=== PATIENT | male | born 1970 | race Caucasian/White ===

== ENCOUNTER 2016-12-07 20:29 | Observation (INO) ==
[2016-12-07 22:02] LABS: Basophils % 0.3 %; Eosinophils # 0.1 K/mcL (0.0-0.6); Eosinophils % 0.9 %; Hematocrit 38.5 % (37.5-50.1); Hemoglobin 11.8 g/dL (12.9-16.9); Immature Granulocytes % 0.7 % (0-4); Lymphocytes # 1.4 K/mcL (0.6-4.6); Lymphocytes % 19.5 %; Mean Corpuscular HGB Conc 30.6 g/dL (31.6-35.5); Mean Corpuscular Hemoglobin 23.8 pg (28.0-33.3); Mean Corpuscular Volume 77.6 fL (83.0-100.0); Mean Platelet Volume 9.7 fL (9.4-12.4); Monocytes # 0.6 K/mcL (0.0-1.3); Monocytes % 7.9 %; Neutrophils # 4.9 K/mcL (1.6-8.9); Platelet Count 248 K/mcL (140-400); Red Blood Count 4.96 M/mcL (4.19-5.50); Red Cell Distribution Width 16.5 % (11.5-14.5); Segmented Neutrophils % 70.7 %
[2016-12-07 22:07] LABS: Prothrombin Time 11.1 Seconds (9.4-12.1)
[2016-12-07 22:10] LABS: Activated Partial Thrombo Time 26.1 Seconds (26.0-36.0)
[2016-12-07 22:14] LABS: BUN/Creatinine Ratio 15 (6-26); Blood Urea Nitrogen 12 mg/dL (8-26); Calcium 8.7 mg/dL (8.6-10.8); Carbon Dioxide 23 mEq/L (19-29); Chloride 108 mEq/L (98-109); Glucose 101 mg/dL (70-99); Osmolality,Calculated 292 (280-300); Potassium 4.6 mEq/L (3.5-4.5); Sodium 141 mEq/L (136-145); eGFR For African Americans > 60 (> 60); eGFR For Non-African Americans > 60 (> 60)
[2016-12-07 22:38] LABS: Thyroid Stimulating Hormone 1.255 mcIU/mL (0.350-4.840)
--- NOTE | 2016-12-07 23:31 | Emergency Department Note ---
Disposition Clinical Impression: Chest pain, rule out acute myocardial infarction Disposition: Admitted As Inpatient Condition: Fair Chest Pain HPI - General Chief Complaint: ED Chest Pain Stated Complaint: Chest Pain// sent from [facility] Time Seen by Provider: 12/07/16 21:03 Source: patient Mode of arrival: ambulatory Limitations: no limitations Vital Signs Reviewed: Yes Nursing Notes Reviewed: Yes - History of Present Illness HPI Narrative: 46 year old male presents with concerns of increasing chest pain over the past 1 -2 weeks. Patient states that his pain is a deep aching in the center of his chest without radiation. He states that his pain worsens with exertion and he becomes short of breath, diaphoretic and nauseated. Patient had similar symptoms last year with a cardiac catheter that showed mild disease. He did not have any stents placed at that time. Patient states that the symptoms are worse than they were at that time. Patient denies recent trauma, fever, diarrhea. Patient also has chest pain that is sharp and stabbing in addition to his aching pain. The sharp and stabbing pain is worse with palpation however this only lasts seconds and is not associated with exertion. Severity scale (1-10): 4 - Related Data Home Medications Medication Instructions Recorded Confirmed Atenolol [Tenormin] 25 mg PO DAILY 06/23/16 12/08/16 Acetaminophen with Codeine 1 tab PO Q6H PRN 12/08/16 12/08/16 [Acetaminophen-Cod #4 Tablet] Furosemide [Lasix] 40 mg PO DAILY 12/08/16 12/08/16 HYDROcodone/Acet 5/325 mg [[place] 1 tab PO Q6H PRN 12/08/16 12/08/16 5-325 mg] Lisinopril [Zestril] 40 mg PO DAILY 12/08/16 12/08/16 Previous Rx's Medication Instructions Recorded Aspirin 81 mg PO DAILY #30 tab.chew 12/08/16 Allergies Allergy/AdvReac Type Severity Reaction Status Date / Time No Known Allergies Allergy Verified 06/23/16 09:48 All systems ED: reviewed and negative except as stated. Constitutional: Reports: weakness. Denies: fever, chills Cardiovascular: Reports: chest pain, dyspnea on exertion. Denies: palpitations , syncope Respiratory: Reports: dyspnea. Denies: cough, wheezes, hemoptysis Gastrointestinal: Reports: nausea, vomiting. Denies: abdominal pain, diarrhea, constipation Genitourinary: Denies: urgency, dysuria Musculoskeletal: Denies: back pain, neck pain Chest Pain PMH - Past Medical History Medical history: Reports: diabetes, hypertension, myocardial infarction, other Reports: Other (neuropathy) Surgical history: Reports: cholecystectomy, herniorrhaphy, other Psychiatric history: Reports: depression - Social History Smoking Status: Never smoker Alcohol use: Reports: heavy Drug use: Reports: none Physical Exam General: Alert and in no acute distress Skin: Warm, dry, intact Head: Normocephalic and atraumatic Neck: Supple, trachea midline and no tenderness Cardiovascular: RRR, no murmur, normal perfusion Respiratory: CTAB, no wheezing, cough, or respiratory distress Musculoskeletal: Normal strength, no tenderness, swelling or deformity GI: Soft, nontender, nondistended. Bowel sounds present Neuro: A&O to person, place, time and situation. No focal deficits noted on exam Psychiatric: cooperative and appropriate mood and affect. - General Limitations: no limitations General appearance: alert Course Vital Signs Temperature 99 F 12/07/16 20:34 Pulse Rate 97 12/07/16 20:34 Respiratory Rate 18 12/07/16 20:34 Blood Pressure 184/94 12/07/16 20:34 O2 Sat by Pulse Oximetry 98 12/07/16 20:34 Temperature 98.5 F 12/08/16 11:11 Pulse Rate 89 12/08/16 11:11 Respiratory Rate 16 12/08/16 11:11 Blood Pressure 142/87 12/08/16 11:11 O2 Sat by Pulse Oximetry 98 12/08/16 11:11 Oxygen Delivery Oxygen Delivery Room Air Chest Pain - Medical Records Medical records reviewed: Yes I reviewed the patient's medical records. - Lab Data Lab results reviewed: Yes I reviewed the patient's lab results. Result diagrams: 12/07/16 21:55 12/08/16 03:58 Lab Results 12/07/16 12/07/16 12/07/16 Range/Units 21:55 21:55 21:55 WBC 7.0 (4.3-11.1) K/mcL RBC 4.96 (4.19-5.50) M/mcL Hgb 11.8 L (12.9-16.9) g/dL Hct 38.5 (37.5-50.1) % MCV 77.6 L (83.0-100.0) fL MCH 23.8 L (28.0-33.3) pg MCHC 30.6 L (31.6-35.5) g/dL RDW 16.5 H (11.5-14.5) % Plt Count 248 (140-400) K/mcL MPV 9.7 (9.4-12.4) fL Immature Gran % 0.7 (0-4) % Seg Neutrophils % 70.7 % Lymphocytes % 19.5 % Monocytes % 7.9 % Eosinophils % 0.9 % Basophils % 0.3 % Neutrophils # 4.9 (1.6-8.9) K/mcL Lymphocytes # 1.4 (0.6-4.6) K/mcL Monocytes # 0.6 (0.0-1.3) K/mcL Eosinophils # 0.1 (0.0-0.6) K/mcL Basophils # 0.0 (0.0-0.2) K/mcL PT 11.1 (9.4-12.1) Seconds INR 1.0 APTT 26.1 (26.0-36.0) Seconds Sodium 141 (136-145) mEq/L Potassium 4.6 H (3.5-4.5) mEq/L Chloride 108 (98-109) mEq/L Carbon Dioxide 23 (19-29) mEq/L BUN 12 (8-26) mg/dL Creatinine 0.82 (0.72-1.25) mg/dL Est GFR ( Amer) > 60 (> 60) Est GFR (Non-Af Amer) > 60 (> 60) BUN/Creatinine Ratio 15 (6-26) Glucose 101 H (70-99) mg/dL Calculated Osmolality 292 (280-300) Calcium 8.7 (8.6-10.8) mg/dL Troponin I (0-0.03) ng/mL TSH 1.255 (0.350-4.840) mcIU/mL 12/07/16 Range/Units 21:55 WBC (4.3-11.1) K/mcL RBC (4.19-5.50) M/mcL Hgb (12.9-16.9) g/dL Hct (37.5-50.1) % MCV (83.0-100.0) fL MCH (28.0-33.3) pg MCHC (31.6-35.5) g/dL RDW (11.5-14.5) % Plt Count (140-400) K/mcL MPV (9.4-12.4) fL Immature Gran % (0-4) % Seg Neutrophils % % Lymphocytes % % Monocytes % % Eosinophils % % Basophils % % Neutrophils # (1.6-8.9) K/mcL Lymphocytes # (0.6-4.6) K/mcL Monocytes # (0.0-1.3) K/mcL Eosinophils # (0.0-0.6) K/mcL Basophils # (0.0-0.2) K/mcL PT (9.4-12.1) Seconds INR APTT (26.0-36.0) Seconds Sodium (136-145) mEq/L Potassium (3.5-4.5) mEq/L Chloride (98-109) mEq/L Carbon Dioxide (19-29) mEq/L BUN (8-26) mg/dL Creatinine (0.72-1.25) mg/dL Est GFR ( Amer) (> 60) Est GFR (Non-Af Amer) (> 60) BUN/Creatinine Ratio (6-26) Glucose (70-99) mg/dL Calculated Osmolality (280-300) Calcium (8.6-10.8) mg/dL Troponin I 0.00 (0-0.03) ng/mL TSH (0.350-4.840) mcIU/mL - Radiology Data Radiology results reviewed: Yes I reviewed the patient's radiology results. - EKG Data EKG attestation: Yes I reviewed and interpreted this EKG. EKG results narrative: ECG - interpreted by ED physician. Rate 93, normal sinus rhythm, no STEMI, DC, QT intervals, and QRS within normal limits Heart Score - Score History: Moderately Suspicious EKG: Normal Age: 45-65 Risk Factors: Equal/Greater than 3 risk factor or history of atherosclerotic disease Troponin: Less than normal limit HEART Score Total: 4
[2016-12-08] MEDS ORDERED: 0.9 % Sodium Chloride 500 ML IVC ONE (02:29)
--- NOTE | 2016-12-08 02:36 | Internal Med History&Physical ---
Date of Encounter: 12/08/16 Time of Encounter: 02:34 Assessment and Plan (1) Chest pain Current visit: No Status: Acute Patient presents with atypical chest pain. His electrocardiogram shows noST- segment shifts. Initial troponin normal. Will check 2 more sets of cardiac enzymes. I would also chick d dimer, and if elevated will ruled out pulmonary embolism. Will continue aspirin and beta lemuel. We will give heparin and famotidine for DVT and peptic ulcer disease prophylaxis respectively. Patient drinks 2 glasses of beer every day but denies going into withdrawal when he stops drinking for a few days. This potassium is slightly elevated will hold lisinopril and treat hyperkalemia and repeat potassium. He would be admitted under observation status. Qualifiers: Qualified Code(s): R07.9 - Chest pain, unspecified Internal Medicine - H&P: HPI Chief complaint: chest pain History of present illness: Mr. Cortes is a 46 year old male with a history of hypertension, dyslipidemia , noninclusive coronary artery disease presents to the emergency room today with the main complaining of chest pain. For the past day patient has been having intermittent episodes of chest pain lasting from 15 minutes to 2 hours. Pain was associated with shortness of breath but was not related to exertion. He had an angiogram last year which showed no occlusive disease according to the patient. Patient denies any prior history of DVT or pulmonary embolism Past Med Surg Social Fam HX - Past Medical History Medical history: diabetes, hypertension, myocardial infarction, other Psychiatric history: depression - Past Surgical History Surgical History: cholecystectomy, herniorrhaphy, other - Social History Smoking Status: Former smoker Smokeless Tobacco Status: No Alcohol use: heavy Drug use: none - Family History Mother Living Status: Still Living Hx Family Cardiac Disorders: Yes (Coronary artery disease) Hx Family Respiratory Disorders: Yes (COPD, Sleep apnea) Hx Family Endocrine Disorder: Yes (Diabetes mellitus) Internal Medicine - H&P: Meds Atenolol [Tenormin] 25 mg PO DAILY 06/23/16 [History] Furosemide [Lasix] 20 mg PO BID 12/08/16 [History] HYDROcodone/Acet 5/325 mg [[place] 5-325 mg] 1 tab PO Q6H PRN 12/08/16 [History] Lisinopril [Zestril] 20 mg PO HS 12/08/16 [History] Allergies No Known Allergies Allergy (Verified 06/23/16 09:48) All Systems PM: A 10-system review of systems was performed and is negative for pertinent findings except as documented above in the HPI. Review of systems: 10 point review systems is negative except for HPI. - Constitutional Vitals: Temp Pulse Resp BP Pulse Ox 98.4 F 88 16 141/89 98 12/08/16 00:56 12/08/16 00:56 12/08/16 00:56 12/08/16 00:56 12/08/16 01:21 Exam: Gen.: patient is alert oriented times 3 and often distressed Cardiac: normal S1 S2 no additional sounds or murmurs chest: clear to auscultation abdomen: multiple scars of prior surgeries no tenderness or rebound tenderness lower extremity 1+ swelling Internal Med - H&P Results - Labs CBC & Chem 7: 12/07/16 21:55 12/07/16 21:55
[2016-12-08] MEDS: *HR* HYDROcodone/Acet 5/325 mg TABLET PO PRN ×2 (03:06→09:16)
[2016-12-08 05:00] LABS: BUN/Creatinine Ratio 18 (6-26); Blood Urea Nitrogen 14 mg/dL (8-26); Calcium 8.6 mg/dL (8.6-10.8); Carbon Dioxide 24 mEq/L (19-29); Chloride 107 mEq/L (98-109); Creatine Kinase 106 Units/L (30-200); Glucose 98 mg/dL (70-99); Osmolality,Calculated 292 (280-300); Sodium 141 mEq/L (136-145); eGFR For African Americans > 60 (> 60); eGFR For Non-African Americans > 60 (> 60)
[2016-12-08] MEDS ORDERED: *HR* Enoxaparin 40 MG/0.4 ML SYRINGE SQ SCH (07:00)
[2016-12-08] MEDS ORDERED: Aspirin Enteric Coated 325 MG Tablet PO SCH (09:00)
[2016-12-08] MEDS ORDERED: Famotidine 20 MG TABLET PO SCH (09:00)
[2016-12-08] MEDS ORDERED: Furosemide 20 MG TABLET PO SCH (09:00)
[2016-12-08 11:16] VITALS: BP 142/87
--- NOTE | 2016-12-08 14:09 | Discharge Summary ---
Date of Encounter: 12/08/16 Time of Encounter: 13:30 - Discharge Diagnosis (1) Chest pain Priority: Primary Status: Resolved Comments: Patient denied chest pain at time of discharge. Troponin 0.003. Chest x-ray negative. D-dimer elevated, CTA negative for PE. At time of discharge, patient stating his pedal edema was actually improved from his baseline. ACS ruled out. Follow-up outpatient. (2) Anemia Priority: Secondary Status: Chronic Comments: Mild, stable, chronic, follow-up outpatient (3) DVT prophylaxis Priority: Primary Status: Acute Comments: Subcutaneous Lovenox while admitted (4) HTN (hypertension) Priority: Secondary Status: Chronic Comments: Controlled, recommend continued follow-up outpatient Qualifiers: Hypertension type: essential hypertension Qualified Code(s): I10 - Essential (primary) hypertension (5) Morbid obesity with BMI of 50.0-59.9, adult Priority: Secondary Status: Chronic (6) LEXI on CPAP Priority: Secondary Status: Chronic Comments: Endorses compliance (7) Diastolic heart failure Priority: Secondary Status: Chronic Comments: No acute exacerbation. Patient's pedal edema improved from his baseline at time of discharge. Most recent echocardiogram July 2015 revealing ejection fraction of 50-55% and mild diastolic dysfunction. He is furosemide at home, follow-up outpatient. patient is aware of his sodium and fluid was strict a diet. Qualifiers: Heart failure chronicity: chronic Qualified Code(s): I50.32 - Chronic diastolic (congestive) heart failure - Discharge Medications Prescriptions: Aspirin 81 mg PO DAILY #30 tab.chew Home Medications: Atenolol [Tenormin] 25 mg PO DAILY 06/23/16 [History] Acetaminophen with Codeine [Acetaminophen-Cod #4 Tablet] 1 tab PO Q6H PRN [History] Aspirin 81 mg PO DAILY #30 tab.chew 12/08/16 [Rx] Furosemide [Lasix] 40 mg PO DAILY 12/08/16 [History] HYDROcodone/Acet 5/325 mg [[place] 5-325 mg] 1 tab PO Q6H PRN 12/08/16 [History] Lisinopril [Zestril] 40 mg PO DAILY 12/08/16 [History] Allergies/Adverse Reactions: Allergies No Known Allergies Allergy (Verified 06/23/16 09:48) Procedures/tests Complete & Pending: Procedures Performed prior 72 hours Category Date Time Status CTA chest [CT angio chest] [CT] Stat Cat Scan 12/08/16 07:03 Draft Date of admission: 12/08/16 00:13 Primary care physician: Randall Jacob MD Discharging clinician: Fabiana Sunshine Anticipated date of discharge: 12/08/16 - Patient Status Disposition: Home, Self-Care Condition: Fair Functional capacity at discharge: independent ambulation Overall status at discharge: patient is back to baseline - Discharge Instructions Follow Up With: Randall Jacob MD [Primary Care Provider] - Additional Instructions: Follow-up with primary care provider in one to 2 weeks - Diet and Activity Activity: increase activity as tolerated Diet: diabetic diet, low fat, low cholesterol, low salt diet, other (Fluid restriction 1800 mL per day) Hospital course: Mr. Cortes is a 46 year old male with past medical history of hypertension, hyperlipidemia, CAD, diastolic heart failure, morbid obesity. Patient presented to the emergency department chief complaint chest pain 1 day. Patient stating pain was intermittent and lasted approximately 15 minutes to up to 2 hours and was associated with shortness of breath but not related to exertion. Patient stating he had a heart catheter at the end of 2014 that revealed nonobstructive coronary artery disease. Workup in the emergency department unremarkable. Chest x-ray negative. Patient was admitted to the hospitalist service for further evaluation and management. Troponins negative 3. D-dimer elevated, CTA ruled out PE. Patient did not require oxygen on day of discharge. He was asymptomatic and denied chest pain on day of discharge. His pedal edema had improved from his baseline and he denied shortness of breath above his norm. For further risk factor stratification, he was started on a baby aspirin. He was discharged home in stable condition with close outpatient follow-up recommended. ITS Impressions Chest X-Ray 12/07/16 23:05 IMPRESSION: 1. No focal airspace disease identified D/ / Riki Hargrove MD / Riki Hargrove MD Interpreting Provider: Riki Hargrove MD Chest CTA 12/08/16 07:03 IMPRESSION: Suboptimal evaluation of the distal pulmonary arteries. No evidence of central pulmonary embolism or right heart strain. Stable appearance of miliary noncalcified nodules throughout the lungs, most likely related to prior granulomatous disease. D/ / 12/08/2016 10:33:29 Arley Castellon MD / joe Interpreting Provider: Arley Castellon MD - Time Spent with Patient Total time spent providing and/or coordinating discharge services: - Constitutional Vitals: Temp Pulse Resp BP Pulse Ox 98.5 F 89 16 142/87 98 12/08/16 11:11 12/08/16 11:11 12/08/16 11:11 12/08/16 11:11 12/08/16 11:11 General appearance: Present: A&O X 3, morbidly obese, pleasant, no acute distress, answers questions appropriately - Head Head exam: Present: atraumatic, normocephalic - Eye Eye exam: Present: PERRL, conjuntiva pink, sclera anicteric Pupils: Present: PERRL - Neck Neck exam general surgery: Present: supple, trachea midline. Absent: lymphadenopathy - Respiratory Respiratory exam: Present: decreased breath sounds (good aeration). Absent: accessory muscle use, rales, respiratory distress, rhonchi, wheezes - Cardiovascular Cardiovascular exam: Present: RRR, +S1, +S2. Absent: diastolic murmur, gallop, rubs, systolic murmur - GI/Abdominal GI/Abdominal exam: Present: normal bowel sounds, soft, no peritoneal signs. Absent: distended, tenderness - Extremities Exam Extremities exam: Present: pedal edema (2+- normal is 4+ per patient), warm, radial pulses palpable and symetrical. Absent: calf tenderness, cyanotic - Neurological Exam Neurological exam: Present: alert, CN II-XII intact, oriented X3, no focal deficits, strengths equal and symetr throughout. Absent: pronater drift, facial droop, speech deficit - Skin Skin exam: Present: dry, intact, normal color, warm
--- NOTE | 2016-12-08 14:55 | Electrocardiograph Report ---
[place] [id number] Test Date: 2016-12-07 Pat Name: Lobo Cortes Department: 102 Room: 3B37 Gender: M [employer]acker: : 1970 Requested By: Ryan Connell Order Number: [id number] Reading MD: Yovana Mckeon Measurements Intervals [place] Rate: 93 P: 48 ID: [id number] QRS: 6 QRSD: 89 T: 12 QT: 336 QTc: 387 Interpretive Statements SINUS RHYTHM Electronically Signed On 12-08-2016 14:53:48 EST by Yovana Mckeon
[2016-12-11 12:44] LABS: CK-BB (CK isoenzymes) 0 % (0-0); CK-MB (CK isoenzymes) 0 % (0-4); CK-MM (CK-isoenzymes) 95 % (96-100)
[2016-12-13 07:49] LABS: CK Total (Ck Isoenzymes) 102 U/L (20-200)
== END 2016-12-08 16:01 | disposition home or self-care (01) ==
LOC: 3BNU 20:29 → EMEROO 20:29 → 3BNU 12-08 00:44
PROVIDERS: ADMIT Hospitalist; ATTEND Nurse Practitioner Family

== ENCOUNTER 2017-07-07 02:41 | Observation (INO) ==
[2017-07-07] MEDS ORDERED: Aspirin 81 MG TAB.CHEW PO ONE (02:47)
[2017-07-07] MEDS ORDERED: Nitroglycerin 0.4 MG TAB.SUBL SL PRN (02:54)
--- NOTE | 2017-07-07 02:58 | Emergency Department Note ---
Disposition Clinical Impression: Chest pain Disposition: Admitted As Inpatient Condition: Fair Referrals: NONE,PCP [Primary Care Provider] - Forms: ED Satisfaction Letter Time of Disposition: 03:06 Chest Pain HPI - General Chief Complaint: ED Chest Pain Stated Complaint: Chest Pain Time Seen by Provider: 07/07/17 02:46 Source: patient, EMS Mode of arrival: ambulatory Limitations: no limitations Vital Signs Reviewed: Yes Nursing Notes Reviewed: Yes - History of Present Illness HPI Narrative: Patient is an obese 47-year-old male with a past medical history of hypertension , diabetes, ND and CHF that presents to the ED with chest pain radiating up to his jaw with associated nausea, shortness of breath and diaphoresis. Patient reports that pain started approximately 1 hour prior to arrival while he was walking down the hallway doing rounds. 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 Rates pain a 9 out of 10. Describes pain as a heaviness to his mid/left side of chest. He denies any cough, weakness, fever, chills, vomiting, abdominal pain , back pain or any other symptoms/complaints. Pt complaint: chest pain Onset (ago): [employer] Duration: constant Onset: during exertion Pain Location: left chest Severity: moderate Severity scale (1-10): 9 Quality: heaviness Pain Radiation: jaw/teeth Improves with: nothing Worsens with: nothing Associated symptoms: Reports: nausea, vomiting, diaphoresis, dyspnea. Denies: sense of impending doom, syncope, palpitations, fever, cough, leg swelling Treatments prior to arrival chest pain: aspirin, oxygen - Related Data Home Medications Medication Instructions Recorded Confirmed Atenolol [Tenormin] 25 mg PO DAILY 06/23/16 05/28/17 Furosemide [Lasix] 40 mg PO DAILY 12/08/16 05/28/17 HYDROcodone/Acet 5/325 mg [[place] 1 tab PO Q6H PRN 12/08/16 05/28/17 5-325 mg] Lisinopril [Zestril] 40 mg PO DAILY 12/08/16 05/28/17 Diclofenac Sodium [Voltaren] 4 gm TP QID PRN 05/28/17 05/28/17 Diclofenac Sodium [Voltaren] 75 mg PO BID 05/28/17 05/28/17 Allergies Allergy/AdvReac Type Severity Reaction Status Date / Time No Known Allergies Allergy Verified 05/28/17 08:38 All systems ED: reviewed and negative except as stated. Review of Systems: As Per HPI Constitutional: Denies: fever, chills, weakness Eyes: Denies: eye discharge, vision change ENT ED: Denies: throat pain, congestion Cardiovascular: Reports: chest pain. Denies: palpitations, dyspnea on exertion , edema, syncope, paroxysmal nocturnal dyspnea Respiratory: Reports: dyspnea. Denies: cough, wheezes, hemoptysis, stridor Gastrointestinal: Reports: nausea, vomiting. Denies: abdominal pain, diarrhea, constipation, hematemesis, melena, hematochezia Genitourinary: Denies: dysuria Musculoskeletal: Denies: back pain, neck pain Integumentary: Denies: rash Neurological: Denies: headache, weakness, numbness, paresthesias, confusion Endocrine: Denies: fatigue Chest Pain PMH - Past Medical History Medical history: Reports: diabetes, hypertension, myocardial infarction, other Reports: Other (neuropathy) Surgical history: Reports: cholecystectomy, herniorrhaphy, other Psychiatric history: Reports: depression - Social History Smoking Status: Former smoker Alcohol use: Reports: occasionally Drug use: Reports: none Physical Exam - General Limitations: no limitations General appearance: alert, in no apparent distress - Head Head exam: atraumatic, normocephalic, normal inspection - Eye Eye exam: Present: normal appearance, PERRL, EOMI - ENT ENT exam: normal exam, normal oropharynx, mucous membranes moist - Neck Neck exam: Present: normal inspection, full ROM, trachea midline. Absent: tenderness, meningismus - Chest Chest inspection: Present: normal inspection, symmetric chest wall rise - Respiratory Respiratory exam: Present: normal lung sounds bilaterally. Absent: respiratory distress, wheezes, accessory muscle use - Cardiovascular Cardiovascular exam: Present: regular rate, normal rhythm, normal heart sounds - Abdominal Exam Abdominal exam: Present: soft, Non-Tender, normal bowel sounds, other (obese). Absent: tenderness, distention, guarding, rebound, rigidity - Extremities Exam Extremities exam: Present: normal inspection, full ROM, pedal edema (bilateral) . Absent: tenderness - Expanded Lower Extremity Exam Gait: observed and normal - Back Exam Back exam: Present: normal inspection, full ROM. Absent: tenderness - Neurological Exam Neurological exam: Present: alert, oriented X3, CN II-XII intact - Psychiatric Psychiatric exam: Present: normal affect, normal mood - Skin Skin exam: Present: warm, dry, intact, normal color. Absent: rash, cyanosis, diaphoresis Course Course Narrative: Patient is an obese 47-year-old male with a past medical history of hypertension , diabetes, ND and CHF that presents to the ED with chest pain radiating up to his jaw with associated nausea, shortness of breath and diaphoresis. Patient reports that pain started approximately 1 hour prior to arrival while he was walking down the hallway doing rounds. 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 Rates pain a 9 out of 10. Describes pain as a heaviness to his mid/left side of chest. He denies any cough, weakness, fever, chills, vomiting, abdominal pain , back pain or any other symptoms/complaints. Patient is a obese 47-year-old male. Vital stable. Afebrile. Alert and oriented 3. Appears in no acute distress. Heart RRR. Lungs CTAB. No wheezing, stridor, retractions or any signs of respiratory distress/compromise. Abdomen soft, nontender. Extremities: wnl. bilateral pedal edema. Otherwise , within normal limits. Neuro no focal neurological deficits noted on exam. EKG, chest x-ray and labs ordered. ASA given in route by EMS. Nitroglycerin trial will be performed. We will reevaluate. EKG sinus rhythm. K4.6, creatinine 1.46 Troponin negative. Chest x-ray shows no acute cardiopulmonary abnormalities. Heart Score 4. Chest pain improved after 1 nitroglycerin tablet, now a 5 out of 10. BP dropped with one nitroglycerin tablet we will hold off their nitroglycerin at this time. Discussed labs and imaging with patient. Plan to admit to medicine for serial trop and chest pain rule out. Pt agrees with tx plan. Discussed case with Dr. Connell. He had [id number] time with patient and agrees with my assessment and treatment plan. Discussed case with the hospitalist. He accepted pt. No other request at this time. Hospitalist saw patient in the ED at 3:40 AM. Vital Signs Temperature 0 F L 07/07/17 02:43 Pulse Rate 82 07/07/17 02:43 Respiratory Rate 20 07/07/17 02:43 Blood Pressure 114/65 07/07/17 02:43 O2 Sat by Pulse Oximetry 99 07/07/17 02:43 Temperature 0 F L 07/07/17 02:43 Pulse Rate 82 07/07/17 02:43 Respiratory Rate 20 07/07/17 02:43 Blood Pressure 114/65 07/07/17 02:43 O2 Sat by Pulse Oximetry 99 07/07/17 02:54 Oxygen Delivery Oxygen Delivery Room Air Chest Pain - Medical Records Medical records reviewed: Yes I reviewed the patient's medical records. - Lab Data Lab results reviewed: Yes I reviewed the patient's lab results. Result diagrams: 07/07/17 02:57 07/07/17 02:57 Lab Results 07/07/17 07/07/17 07/07/17 Range/Units 02:57 02:57 02:57 WBC 9.3 (4.3-11.1) K/mcL RBC 4.99 (4.19-5.50) M/mcL Hgb 13.1 (12.9-16.9) g/dL Hct 42.6 (37.5-50.1) % MCV 85.4 (83.0-100.0) fL MCH 26.3 L (28.0-33.3) pg MCHC 30.8 L (31.6-35.5) g/dL RDW 15.2 H (11.5-14.5) % Plt Count 242 (140-400) K/mcL MPV 10.0 (9.4-12.4) fL Immature Gran % 1.2 (0-4) % Seg Neutrophils % 75.7 % Lymphocytes % 13.2 % Monocytes % 9.1 % Eosinophils % 0.5 % Basophils % 0.3 % Neutrophils # 7.0 (1.6-8.9) K/mcL Lymphocytes # 1.2 (0.6-4.6) K/mcL Monocytes # 0.9 (0.0-1.3) K/mcL Eosinophils # 0.1 (0.0-0.6) K/mcL Basophils # 0.0 (0.0-0.2) K/mcL PT 10.6 (9.4-12.1) Seconds INR 1.0 APTT 25.6 L (26.0-36.0) Seconds Sodium 138 (136-145) mEq/L Potassium 4.6 H (3.5-4.5) mEq/L Chloride 106 (98-109) mEq/L Carbon Dioxide 23 (19-29) mEq/L BUN 35 H (8-26) mg/dL Creatinine 1.46 H (0.72-1.25) mg/dL Est GFR ( Amer) > 60 (> 60) Est GFR (Non-Af Amer) 52 L (> 60) BUN/Creatinine Ratio 24 (6-26) Glucose 91 (70-99) mg/dL Calculated Osmolality 294 (280-300) Calcium 8.8 (8.6-10.8) mg/dL Troponin I (0-0.03) ng/mL 07/07/17 Range/Units 02:57 WBC (4.3-11.1) K/mcL RBC (4.19-5.50) M/mcL Hgb (12.9-16.9) g/dL Hct (37.5-50.1) % MCV (83.0-100.0) fL MCH (28.0-33.3) pg MCHC (31.6-35.5) g/dL RDW (11.5-14.5) % Plt Count (140-400) K/mcL MPV (9.4-12.4) fL Immature Gran % (0-4) % Seg Neutrophils % % Lymphocytes % % Monocytes % % Eosinophils % % Basophils % % Neutrophils # (1.6-8.9) K/mcL Lymphocytes # (0.6-4.6) K/mcL Monocytes # (0.0-1.3) K/mcL Eosinophils # (0.0-0.6) K/mcL Basophils # (0.0-0.2) K/mcL PT (9.4-12.1) Seconds INR APTT (26.0-36.0) Seconds Sodium (136-145) mEq/L Potassium (3.5-4.5) mEq/L Chloride (98-109) mEq/L Carbon Dioxide (19-29) mEq/L BUN (8-26) mg/dL Creatinine (0.72-1.25) mg/dL Est GFR ( Amer) (> 60) Est GFR (Non-Af Amer) (> 60) BUN/Creatinine Ratio (6-26) Glucose (70-99) mg/dL Calculated Osmolality (280-300) Calcium (8.6-10.8) mg/dL Troponin I 0.01 (0-0.03) ng/mL - Radiology Data Radiology results reviewed: Yes I reviewed the patient's radiology results. - EKG Data EKG attestation: Yes I reviewed and interpreted this EKG. EKG shows normal: sinus rhythm Rate: normal Rhythm: NSR [place]/QRS: normal When compared to previous EKG there are: no significant changes Interpretation: no acute changes, normal EKG Heart Score - Score History: Moderately Suspicious EKG: Normal Age: 45-65 Risk Factors: Equal/Greater than 3 risk factor or history of atherosclerotic disease Troponin: Less than normal limit HEART Score Total: 4
[2017-07-07 03:03] LABS: Basophils % 0.3 %; Eosinophils # 0.1 K/mcL (0.0-0.6); Eosinophils % 0.5 %; Hematocrit 42.6 % (37.5-50.1); Hemoglobin 13.1 g/dL (12.9-16.9); Immature Granulocytes % 1.2 % (0-4); Lymphocytes # 1.2 K/mcL (0.6-4.6); Lymphocytes % 13.2 %; Mean Corpuscular HGB Conc 30.8 g/dL (31.6-35.5); Mean Corpuscular Hemoglobin 26.3 pg (28.0-33.3); Mean Corpuscular Volume 85.4 fL (83.0-100.0); Monocytes # 0.9 K/mcL (0.0-1.3); Monocytes % 9.1 %; Platelet Count 242 K/mcL (140-400); Red Blood Count 4.99 M/mcL (4.19-5.50); Red Cell Distribution Width 15.2 % (11.5-14.5); Segmented Neutrophils % 75.7 %
[2017-07-07 03:08] LABS: Prothrombin Time 10.6 Seconds (9.4-12.1)
[2017-07-07 03:10] LABS: Activated Partial Thrombo Time 25.6 Seconds (26.0-36.0)
[2017-07-07 03:16] LABS: BUN/Creatinine Ratio 24 (6-26); Blood Urea Nitrogen 35 mg/dL (8-26); Calcium 8.8 mg/dL (8.6-10.8); Carbon Dioxide 23 mEq/L (19-29); Chloride 106 mEq/L (98-109); Glucose 91 mg/dL (70-99); Osmolality,Calculated 294 (280-300); Potassium 4.6 mEq/L (3.5-4.5); Sodium 138 mEq/L (136-145); eGFR For African Americans > 60 (> 60); eGFR For Non-African Americans 52 (> 60)
[2017-07-07] MEDS ORDERED: 0.9 % Sodium Chloride 1,000 ML IVC ONE ×2 (03:21→09:52)
[2017-07-07] MEDS: 0.9 % Sodium Chloride 1,000 ML ONE ×2 (03:26→15:54)
[2017-07-07] MEDS ORDERED: *HR* HYDROcodone/Acet 5/325 mg TABLET PO PRN (03:45)
[2017-07-07] MEDS ORDERED: Naloxone 0.4 MG/ML INJ IVP PRN (03:46)
--- NOTE | 2017-07-07 03:51 | Internal Med History&Physical ---
Date of Encounter: 07/07/17 Time of Encounter: 03:48 Assessment and Plan (1) Chest pain Current visit: No Status: Acute trend trop, check TTE, nuclear stress test in the a.m. , he is not sure if he is able to exercise - will try pharmacological stress Qualifiers: Chest pain type: unspecified Qualified Code(s): R07.9 - Chest pain, unspecified (2) Morbid obesity with BMI of 50.0-59.9, adult Current visit: No Status: Chronic (3) HTN (hypertension) Current visit: No Status: Chronic continue med Qualifiers: Hypertension type: essential hypertension Qualified Code(s): I10 - Essential (primary) hypertension (4) Lower extremity edema Current visit: Yes Status: Chronic continue home lasix Internal Medicine - H&P: HPI Chief complaint: Chest pain History of present illness: Mr. oCrtes is a 47 year old male with hx of HTN, chronic LE edema, morbid obesity who presents with chest pain eval. 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 Associated SOB. He has longstanding hx of HTN and obesity. Has a significant family hx of cardiac disease in his mother's side - his mother just passed a few weeks ago from heart troubles. Of note, he had an abnormal stress testing with global hypokinesis that was f/u with a [facility] w/o evidence of disease. EKG reviewed with rate 77, NSR CXR reviewed by self w/o acute findings Past Med Surg Social Fam HX - Past Medical History Medical history: diabetes, hypertension, myocardial infarction, other Psychiatric history: depression - Past Surgical History Surgical History: cholecystectomy, herniorrhaphy, other - Social History Smoking Status: Former smoker Smokeless Tobacco Status: No Alcohol use: occasionally Drug use: none - Family History Mother Living Status: Still Living Hx Family Cardiac Disorders: Yes (Coronary artery disease) Hx Family Respiratory Disorders: Yes (COPD, Sleep apnea) Hx Family Endocrine Disorder: Yes (Diabetes mellitus) Internal Medicine - H&P: Meds Atenolol [Tenormin] 25 mg PO DAILY 06/23/16 [History] Furosemide [Lasix] 40 mg PO DAILY 12/08/16 [History] HYDROcodone/Acet 5/325 mg [[place] 5-325 mg] 1 tab PO Q6H PRN 12/08/16 [History] Lisinopril [Zestril] 40 mg PO DAILY 12/08/16 [History] Diclofenac Sodium [Voltaren] 4 gm TP QID PRN 05/28/17 [History] Diclofenac Sodium [Voltaren] 75 mg PO BID 05/28/17 [History] 3 Allergy/AdvReac Type Severity Reaction Status Date / Time No Known Allergies Allergy Verified 05/28/17 08:38 All Systems PM: A 10-system review of systems was performed and is negative for pertinent findings except as documented above in the HPI. Review of systems: ROS 14 point review of systems reviewed as best as possible given presentation. Pertinent positive or negative as per HPI or otherwise reviewed as negative - Constitutional Vitals: Temp Pulse Resp BP Pulse Ox 0 F L 82 20 114/65 99 07/07/17 02:43 07/07/17 02:43 07/07/17 02:43 07/07/17 02:43 07/07/17 02:54 Exam: General - AAO x 3 Psych - Appropriate affect/speech. No agitation Eyes - GAUTAM. Eye lids intact. No scleral icterus Heart - Sinus. RRR. S1 and S2 present. No added HS/murmurs appreciated. No elevated JVD appreciated. +3 lower extremity edema Lung - Adequate air entry b/l, No crackes/wheezes appreciated GI - Soft, non-tender. No hepatosplenomegaly/ascites. BS+ - No CVA/suprapubic tenderness or palpable bladder distension Skin - Intact. No rash/petechiae/ecchymosis. Warm extremities MSK - Joints with normal ROM. No joint swellings Internal Med - H&P Results - Labs CBC & Chem 7: 07/07/17 02:57 07/07/17 02:57
[2017-07-07] MEDS ORDERED: Regadenoson 0.4 MG/5 ML SYRINGE IVP ONE (05:43)
[2017-07-07] MEDS ORDERED: Lisinopril 20 MG TABLET PO SCH (09:00)
[2017-07-07] MEDS ORDERED: Furosemide 40 MG TABLET PO SCH (09:00)
--- NOTE | 2017-07-07 09:16 | Internal Med Progress Note ---
<César Benitez Dawit - Last Filed: 07/07/17 09:39> Date of Encounter: 07/07/17 Time of Encounter: 09:04 - Assessment and plan (1) Chest pain Current Visit: No Status: Acute Assessment and plan: 47-year-old male who presents with atypical chest pain ANNALISA score: 3, patient has greater than 3 risk factors for coronary artery disease, severe angina episodes, aspirin use in the last 7 days - Known history of diastolic heart failure with an ejection fraction of 50-55%, LH C performed in 2014 without any coronary vessel disease identified, no stent placement or interventions at that time. -Troponins x2 negative EKG: Normal sinus rhythm with appropriate rate access without any ST wave abnormalities and without changes from previous EKG. DDx: GERD and esophageal spasm, stress induced chest pain related to significant and recent family history, suspicion but low suspicion for ACS, coronary artery vasospasm - Higher suspicion for GERD versus esophageal spasm versus anxiety induced chest pain, lower likelihood of ACS and coronary vasospasm as the patient has normal EKG findings, resolution of sharp chest pain and negative cardiac markers Plan: - Continue inpatient cardiac monitoring - Requires one more troponin - Aspirin 81 mg by mouth daily - Hold beta lemuel and lisinopril as the patient is currently hypotensive - Atorvastatin 80 mg by mouth daily - Lipid panel - Morphine for moderate chest pain, nitroglycerin sublingual as needed, nasal cannula oxygen as needed - Patient underwent cardiac stress test this morning with results pending. Qualifiers: Chest pain type: unspecified Qualified Code(s): R07.9 - Chest pain, unspecified (2) Hypotension Current Visit: Yes Status: Acute Assessment and plan: Patient was admitted with normotensive blood pressure, blood pressure recorded at 88/50, followed by 94/62 Plan: - 1 L normal saline bolus - Hold patient's home dose lisinopril, no beta lemuel, hold sublingual nitroglycerin at this time. - Repeat blood pressure (3) ELIEL (acute kidney injury) Current Visit: Yes Status: Acute Assessment and plan: Patient presents with acute kidney injury with a creatinine of 1.46, GFR 52, previously normal renal function. This is likely secondary to dehydration and may be continuing with his hypotension. Plan: - Hold antihypertensive medications, lisinopril - Avoid NSAIDs, nephrotoxic medications and renally dose antibiotics - Patient to receive IV fluids for rehydration - Monitor renal function with a.m. labs (4) Morbid obesity with BMI of 50.0-59.9, adult Current Visit: No Status: Chronic Assessment and plan: Patient has a BMI of 53.0. He is morbidly obese with multiple risk factors including sleep apnea, hyperglycemia but not diabetic, hypertension. Patient benefit from nighttime modifications, improved diet and increase activity as tolerated to promote longevity and reduce progression of current medical conditions. (5) LEXI on CPAP Current Visit: No Status: Chronic Assessment and plan: Known history of LEXI currently uses a CPAP nightly, mallampati score 4, -Continue CPAP therapy while sleeping or at rest. (6) Diastolic heart failure Current Visit: No Status: Chronic Assessment and plan: Last echocardiogram in 2014: LVEF 50-55%. Mild left ventricular diastolic dysfunction. No significant valvular dysfunction. - Patient does not appear to be in exacerbation. Plan: - Patient presents with new onset chest pain, we will repeat transthoracic echocardiogram - Hold Lasix with hypotension and acute kidney injury. Qualifiers: Heart failure chronicity: chronic Qualified Code(s): I50.32 - Chronic diastolic (congestive) heart failure (7) DVT prophylaxis Current Visit: No Status: Acute Assessment and plan: Subcutaneous Lovenox 40 mg every morning. - Subjective Interval history: Mr. Cortes 47-year-old male is seen the patient bedside this morning. 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 The duration was a roughly 1 hour, exacerbated with activity for which he said he felt like he would double over but did not improve with rest. He says he does take aspirin and has not the past 7 days but is not consistent with taking it daily. He did have some nausea and diaphoresis but denies any vomiting. He does say that this chest pain is pretty similar to the previous chest pain he had back in 2014 when he had his left heart catheterization. He does have a history of GERD but denies being on any PPI or H2 blockers for roughly 6-7 years and denies any recent symptoms of acid reflux. Of note he does discuss that his mother roughly 5 weeks ago and had a very significant medical history of cardiac disease and her first myocardial infarction was roughly the age of 45-47, he has a cousin who was in his 40s when he several days ago from an acute VT, this is very concerning to him and does bother him. He said that his blood pressure being low today is not normal and he usually has very high diastolic and systolic blood pressures. He denies any changes to his diet and says that his pain improved after coming to the emergency department and receiving sublingual nitroglycerin and has not been recurrent since. He is feeling well the little parched as he has not had any water this morning. - Constitutional Vitals: Temp Pulse Resp BP Pulse Ox 97.7 F 78 17 94/62 98 07/07/17 05:02 07/07/17 05:02 07/07/17 05:02 07/07/17 05:02 07/07/17 05:02 Exam: General: Patient alert, awake, oriented 3, interactive, in no acute distress, obese male HEENT: Normocephalic, atraumatic, pupils equal reactive to light, nasal cavity patent and open septum median position, oral mucosa dry, mallampati score 4, neck supple trachea midline no palpable lymphadenopathy, no thyromegaly. Chest: Symmetric bilateral correlating with respiratory effort, effort nonlabored. Cardiac: Regular rate and rhythm, positive S1 and S2. no bruits appreciated bilateral carotids, Radial pulses 2+ bilateral, posterior tibial and dorsal pedal pulses 2+ bilateral. Respiratory: Clear to auscultation all lung ureña Abdomen: Soft, obese, nontender, positive bowel sounds, no palpable masses appreciated on examination, previous surgical scars and a small supra umbilical hernia which is soft and depressible. Extremities: Symmetric bilateral, bilateral lower extremities without erythema or edema patient moving all 4 extremities spontaneously. Neurologic: No focal deficits appreciated on examination. Face symmetric, muscle strength symmetric bilateral upper and lower extremities. Internal Medicine: Result - Labs CBC & Chem 7: 07/07/17 02:57 07/07/17 02:57 Labs: Cardiac Enzymes 07/07/17 Range/Units 05:46 Troponin I 0.01 (0-0.03) ng/mL - ABG Interpretation ABG results: PT/INR, D-dimer PT 10.6 Seconds (9.4-12.1) 07/07/17 02:57 Consult Discharge Plan - Plan Referrals: Randall Jacob MD [Primary Care Provider] - <Haja Anne T - Last Filed: 07/07/17 16:10> Date of Encounter: 07/07/17 - Constitutional Vitals: Temp Pulse Resp BP Pulse Ox 98.1 F 83 18 109/62 98 07/07/17 15:51 07/07/17 15:51 07/07/17 15:51 07/07/17 15:51 07/07/17 15:51 Internal Medicine: Result - Labs CBC & Chem 7: 07/07/17 02:57 07/07/17 02:57 Labs: Cardiac Enzymes 07/07/17 07/07/17 Range/Units 05:46 11:13 Troponin I 0.01 0.00 (0-0.03) ng/mL - ABG Interpretation ABG results: PT/INR, D-dimer PT 10.6 Seconds (9.4-12.1) 07/07/17 02:57 - Attending Attestation I have independently seen and examined this patient on 07/07/17. I have reviewed the EMR. Plan of management has been discussed with the patient and resident. 47 M with Morbid Obesity, HTN Admitted to observation for atypical chest pain. Not in pain at time of review Work up on admission revealed ELIEL He is on Lasix for LE edema and Lisinopril-HCTZ for hTN Physical exam: VSS, not in distress, no chest wall tenderness, morbidly obese, abdomen is benign. Chronic venous stasis changes A/P *ELIEL: Hold ACEI/Lasix. Give IVF bolus *Chest pain: Atypical, unlikely cardiac, he had a negative cath 2 years ago. ECHO revealed moderate LVDD, no WMA. Folow stress test. Hold BB until stress test is done *HTN: BP is acceptable for now. *Morbid Obesity: Lifestyle modification Rest of details as in resident physician's documentation
--- NOTE | 2017-07-07 17:08 | Electrocardiograph Report ---
[place] [address] Test Date: 2017-07-07 Pat Name: Lobo Cortes Department: 102 Room: [facility] Gender: M Manager English: : 1970 Requested By: Ly Abebe Order Number: [id number] Reading MD: Peter Amin DO Measurements Intervals [place] Rate: 77 P: 38 CA: 156 QRS: 12 QRSD: 94 T: 17 QT: 371 QTc: 402 Interpretive Statements SINUS RHYTHM Electronically Signed On 07-07-2017 17:07:18 EDT by Peter Amin DO
[2017-07-08 04:37] LABS: Basophils % 0.4 %; Eosinophils # 0.1 K/mcL (0.0-0.6); Eosinophils % 0.9 %; Hemoglobin 11.8 g/dL (12.9-16.9); Immature Granulocytes % 1.4 % (0-4); Lymphocytes # 1.3 K/mcL (0.6-4.6); Lymphocytes % 15.7 %; Mean Corpuscular HGB Conc 30.3 g/dL (31.6-35.5); Mean Corpuscular Volume 86.1 fL (83.0-100.0); Mean Platelet Volume 10.3 fL (9.4-12.4); Monocytes # 0.6 K/mcL (0.0-1.3); Monocytes % 7.7 %; Neutrophils # 5.9 K/mcL (1.6-8.9); Platelet Count 219 K/mcL (140-400); Red Blood Count 4.53 M/mcL (4.19-5.50); Red Cell Distribution Width 15.2 % (11.5-14.5); Segmented Neutrophils % 73.9 %
[2017-07-08 04:49] LABS: BUN/Creatinine Ratio 33 (6-26); Blood Urea Nitrogen 26 mg/dL (8-26); Calcium 8.3 mg/dL (8.6-10.8); Carbon Dioxide 23 mEq/L (19-29); Chloride 108 mEq/L (98-109); Glucose 101 mg/dL (70-99); Magnesium 2.1 mg/dL (1.6-2.6); Osmolality,Calculated 289 (280-300); Potassium 4.5 mEq/L (3.5-4.5); Sodium 137 mEq/L (136-145); eGFR For African Americans > 60 (> 60); eGFR For Non-African Americans > 60 (> 60)
[2017-07-08] MEDS ORDERED: *HR* Enoxaparin 40 MG/0.4 ML SYRINGE SQ SCH (06:00)
--- NOTE | 2017-07-08 09:26 | Nuclear Medicine Stress Report ---
Regadenoson Nuclear 2 day Name: Lobo Cortes Date of Study: 07/07/2017 Date: 1970 Ht: 66.0 in Medical Record#: [id number] Age: 47 Wt: 330.0 lb Gender: Male Order #: [id number] Location: [facility] Room: [facility] Supervising Provider: Shirin Garcia CNP Reading Physician: Peter Amin DO, FACAiram, EDSON SARAB[place] Ordering Physician: Fe Damon MD Primary Care Physician: Randall Jacob MD Stress Technologist: Oliva Hinton, MEDICAL ACCOUNTING CLERK, [facility] Route Sales Driver: Jordon Cesar Indications: Coronary Artery Disease, Chest Pain Impression: Low level exercise/ pharmacologic stress ECG is negative for ischemia at level of heart rate achieved. Gated EF = 54%. Small sized, mild intensity, fixed apical inferior defect c/w artifact. Perfusion imaging was negative for ischemia or infarct. History: Hypertension Stress Test Summary: Stress Test Type: Low level pharmacologic Regadenoson 0.4mg/5ml given IV Baseline Information: Initial Heart Rate: 76 Blood Pressure: 108/62 Stress Information: Stress Time: 4 min 00 sec Test Terminated Due to (primary): As per protocol Maximum Blood Pressure: 114/58 Maximum Heart Rate: 109 Percent Maximum Heart Rate Achieved: 63 Double Product: 13340 METS Reached: 2.1 Symptoms: No chest symptoms Nuclear Summary: SPECT myocardial perfusion imaging using Tc99m Sestamibi given intravenously was performed at rest and following cardiac stress testing. The resting images were obtained following initial dose of 33.5 mCi. Following stress an additional dose of 34.2 mCi was given at peak exercise or 30 seconds post regadenoson infusion. Medication Given: Time Medication Dose Units Route Findings: Stress Note * Resting ECG demonstrated normal sinus rhythm. * Rare PVCs noted prior to exam beginning. * Low level exercise/ pharmacologic stress ECG is negative for ischemia at level of heart rate achieved. * No chest pain or arrhythmias during stress. * Normal hemodynamic responses to low level exercise plus pharmacologic stress. Study Quality * Study quality is average. Gated EF % * Gated EF = 54%. Left Ventricle * LVEDV = 132 mL. * Normal wall motion. Inferior Perfusion Rest * The apical inferior segment shows a mild reduction in perfusion. Inferior Perfusion Stress * The apical inferior segment shows a mild reduction in perfusion. TID * No evidence of transient ischemic dilatation. TID ratio = 1.18. Lung Uptake * There is no evidence of increase lung uptake. Updated by Peter Amin DO, FACAiram, NO, EDSON on 07/08/2017 9:18:24 AM electronically signed on 07/08/2017 9:19:14 AM with status of Final
--- NOTE | 2017-07-08 10:22 | Discharge Summary ---
<HammadmireilledereklouisaCasimiro - Last Filed: 07/08/17 14:26> Date of Encounter: 07/08/17 Time of Encounter: 10:30 - Discharge Diagnosis (1) Chest pain Priority: Primary Status: Acute Qualifiers: Qualified Code(s): R07.9 - Chest pain, unspecified (2) ELIEL (acute kidney injury) Priority: Primary Status: Acute (3) Diastolic heart failure Priority: Primary Status: Chronic Qualifiers: Heart failure chronicity: chronic Qualified Code(s): I50.32 - Chronic diastolic (congestive) heart failure (4) Morbid obesity with BMI of 50.0-59.9, adult Priority: Secondary Status: Chronic (5) LEXI on CPAP Priority: Secondary Status: Chronic (6) DVT prophylaxis Priority: Primary Status: Acute - Discharge Medications Prescriptions: Furosemide [Lasix] 40 mg PO DAILY PRN #30 PRN Reason: Edema Home Medications: Atenolol [Tenormin] 25 mg PO DAILY 06/23/16 [History] HYDROcodone/Acet 5/325 mg [[place] 5-325 mg] 1 tab PO Q6H PRN 12/08/16 [History] Lisinopril [Zestril] 40 mg PO DAILY 12/08/16 [History] Diclofenac Sodium [Voltaren] 75 mg PO BID 05/28/17 [History] Furosemide [Lasix] 40 mg PO DAILY PRN #30 07/08/17 [Rx] Allergies/Adverse Reactions: 3 Allergy/AdvReac Type Severity Reaction Status Date / Time No Known Allergies Allergy Verified 05/28/17 08:38 Procedures/tests Complete & Pending: Procedures Performed prior 72 hours Category Date Time Status NM jarek perf SPECT multi [NM] Routine Exams 07/07/17 07:55 Taken EV echocardiogram Routine Y 07/07/17 03:58 Completed SP pharm nuclear stress Routine Y 07/07/17 07:10 Completed Date of admission: 07/07/17 03:39 Primary care physician: Randall Jacob MD Discharging clinician: Haja Anne Anticipated date of discharge: 07/08/17 - Patient Status Disposition: Home, Self-Care Condition: Good Functional capacity at discharge: independent ambulation Overall status at discharge: patient is progressing back to baseline - Discharge Instructions Instructions: Chest Pain (DC) Follow Up With: Randall Jacob MD [Primary Care Provider] - - Diet and Activity Activity: resume usual activities as tolerated Diet: low fat, low cholesterol, low salt diet Interval History: Mr. Cortes is a 47 year old male that presented for chest pain on 07/07/17. Hospital course: Mr. Cortes is a 47 year old male that presented for chest pain on 07/07/17. 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 His presentation displayed atypical signs of chest pain, noting the location just to the right of his sternum, described as sharp. The duration was a roughly 1 hour, exacerbated with activity for which he said he felt like he would double over but did not improve with rest but did improve with nitroglycerin. He says he does take aspirin and has not the past 7 days but is not consistent with taking it daily. He did have some nausea and diaphoresis but denies any vomiting. Tropnin was negative x3. EKG demonstrated a normal sinus rhythm his ANNALISA score is 3. He does say that this chest pain is pretty similar to the previous chest pain he had back in 2014 when he had his left heart catheterization. He does have a history of GERD but denies taking medication for it. He has extensive family history of heart disease. Patient had a stress test performed during his stay here and was negative for ischemia or infarct. His EF was 54%. Differential for his chest pain includes GERD, esophageal spasm, and anxiety. Patient also presented with ELIEL with an elevated creatinine of 1.46. He was given fluids and his creatinine improved to 0.8 today. His ELIEL could have been secondary to dehydration. Patient was instructed to take lasix on PRN basis for his LE edema. When seen today, he says that he just had a minor ache near his sternum, rating it a 2/10 and significantly improved from yesterday. He denies any shortness of breath, light- headedness, syncope, numbness/tingling, nausea, vomiting, fever, or chills. - Time Spent with Patient Total time spent providing and/or coordinating discharge services: - Constitutional Vitals: Temp Pulse Resp BP Pulse Ox 97.9 F 72 16 111/69 97 07/08/17 08:17 07/08/17 08:17 07/08/17 08:17 07/08/17 08:17 07/08/17 08:17 General appearance: Present: morbidly obese, pleasant, answers questions appropriately - Respiratory Respiratory exam: Present: CTAB. Absent: respiratory distress, rhonchi, wheezes , tachypnea - Cardiovascular Cardiovascular exam: Present: RRR, +S1, +S2. Absent: diastolic murmur, systolic murmur - GI/Abdominal GI/Abdominal exam: Present: normal bowel sounds, soft, tenderness (Minor tenderness to palpation in all 4 quadrants. Previous surgery scar from hernia repair over umbilical area.). Absent: guarding, rebound - Extremities Exam Extremities exam: Present: radial pulses palpable and symmetrical. Absent: cyanotic, pedal edema, tenderness Additional comments: Pedal pulses intact bilaterally. - VTE Documentation of Mechanical Device: Graduated compression elastic hosiery <Haja Anne T - Last Filed: 07/08/17 15:12> Date of Encounter: 07/08/17 Procedures/tests Complete & Pending: Procedures Performed prior 72 hours Category Date Time Status NM jarek perf SPECT multi [NM] Routine Exams 07/07/17 07:55 Taken EV echocardiogram Routine Y 07/07/17 03:58 Completed SP pharm nuclear stress Routine Y 07/07/17 07:10 Completed Date of admission: 07/07/17 03:39 Primary care physician: Randall Jacob MD Hospital course: Mr. Cortes is a 47 year old male - Time Spent with Patient Total time spent providing and/or coordinating discharge services: - Constitutional Vitals: Temp Pulse Resp BP Pulse Ox 98.3 F 77 16 120/78 99 07/08/17 11:39 07/08/17 11:39 07/08/17 11:39 07/08/17 11:39 07/08/17 11:39 - Attending Attestation I have independently seen and examined this patient on 07/08/17. I have reviewed the EMR. Plan of management has been discussed with the patient and resident. 47 M with Morbid Obesity, HTN Admitted to observation for atypical chest pain. Incidental finding of ELIEL ELIEL has resolved, patient has not had chest pain since admission Physical exam: VSS, not in distress, no chest wall tenderness, morbidly obese, abdomen is benign. Chronic venous stasis changes A/P Stable for discharge. Resume home meds, lasix to be prn. Rest of details as in resident physician's documentation
[2017-07-08 11:43] VITALS: BP 120/78
== END 2017-07-08 15:11 | disposition home or self-care (01) ==
LOC: EMEROO 02:41 → 3NENU 02:41
PROVIDERS: ADMIT Internal Medicine Hematology & Oncology; ATTEND Family Medicine

== ENCOUNTER 2018-01-08 20:18 | Observation (INO) ==
[2018-01-08 20:39] LABS: Basophils % 0.1 %; Eosinophils # 0.1 K/mcL (0.0-0.6); Eosinophils % 0.8 %; Hematocrit 39.4 % (37.5-50.1); Hemoglobin 11.9 g/dL (12.9-16.9); Immature Granulocytes % 0.8 % (0-4); Lymphocytes # 1.1 K/mcL (0.6-4.6); Mean Corpuscular HGB Conc 30.2 g/dL (31.6-35.5); Mean Corpuscular Hemoglobin 25.2 pg (28.0-33.3); Mean Corpuscular Volume 83.3 fL (83.0-100.0); Mean Platelet Volume 9.6 fL (9.4-12.4); Monocytes # 0.6 K/mcL (0.0-1.3); Monocytes % 8.8 %; Neutrophils # 5.4 K/mcL (1.6-8.9); Platelet Count 211 K/mcL (140-400); Red Blood Count 4.73 M/mcL (4.19-5.50); Red Cell Distribution Width 16.3 % (11.5-14.5); Segmented Neutrophils % 74.5 %
--- NOTE | 2018-01-08 20:40 | Emergency Department Note ---
Disposition Clinical Impression: Chest pain Qualifiers: Chest pain type: unspecified Qualified Code(s): R07.9 - Chest pain, unspecified Disposition: Admitted As Inpatient Condition: Good Referrals: Randall Jacob MD [Primary Care Provider] - Forms: ED Satisfaction Letter Time of Disposition: 23:42 Chest Pain HPI - General Chief Complaint: ED Chest Pain Stated Complaint: Chest pain Time Seen by Provider: 01/08/18 20:24 Source: EMS Vital Signs Reviewed: Yes Nursing Notes Reviewed: Yes - History of Present Illness HPI Narrative: Mr Cortes is a 47 yo M who presents with Sharp chest pain. 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 Onset of pain was 10/10 and did not go away upon rest. Patient was transported via squad and was given ASA 324 which relieved his pain to 4/10. Patient states pain is reproducible when he pushes on chest. Patient says pain is similar to his previous MT's. Patient has associated nausea, and SOB. Patient denies radiation of pain to arm, neck or back. Patient denies vomiting, diaphoresis, or recent chest trauma. Patient has CHF and in the last couple of months has increase in SOB at rest, swelling in legs, orthopnea, PND. Patient has not had a recent surgery, is not immobile, denies smoking, denies hx of DVT or PE. Severity scale (1-10): 7 - Related Data Home Medications Medication Instructions Recorded Confirmed Atenolol [Tenormin] 25 mg PO DAILY 06/23/16 07/07/17 HYDROcodone/Acet 5/325 mg [[place] 1 tab PO Q6H PRN 12/08/16 07/07/17 5-325 mg] Lisinopril [Zestril] 40 mg PO DAILY 12/08/16 07/07/17 Diclofenac Sodium [Voltaren] 75 mg PO BID 05/28/17 07/07/17 Carafate 11/06/17 Vitamin B-1 11/06/17 Vitamin D 11/06/17 Previous Rx's Medication Instructions Recorded Furosemide [Lasix] 40 mg PO DAILY PRN #30 07/08/17 Amoxicillin 875 mg PO BID #20 tablet 11/06/17 Promethazine/Codeine 5 - 10 ml PO QPM #90 ml 11/06/17 [Phenergan/Codeine] Allergies Allergy/AdvReac Type Severity Reaction Status Date / Time No Known Allergies Allergy Verified 01/08/18 20:23 All systems ED: reviewed and negative except as stated. Review of Systems: As Per HPI Chest Pain PMH - Past Medical History Medical history: Reports: hypertension, myocardial infarction, other Reports: Other (neuropathy) Surgical history: Reports: appendectomy, cholecystectomy, herniorrhaphy, orthopedic, other, other Psychiatric history: Reports: anxiety, depression - Social History Smoking Status: Never smoker Alcohol use: Reports: none Drug use: Reports: none Physical Exam - General Limitations: no limitations General appearance: alert, in no apparent distress, obese - Chest Chest inspection: Present: symmetric chest wall rise, tenderness (Left chest pain is reproducible on light palpation) - Respiratory Respiratory exam: Present: normal lung sounds bilaterally, other (limited due to body habitus). Absent: respiratory distress, wheezes, stridor, accessory muscle use, prolonged expiratory phase - Cardiovascular Cardiovascular exam: Present: tachycardia, normal heart sounds. Absent: systolic murmur, diastolic murmur, JVD - Abdominal Exam Abdominal exam: Present: soft, Non-Tender, normal bowel sounds. Absent: tenderness, distention, guarding, rebound, rigidity - Extremities Exam Extremities exam: Present: pedal edema (2+ bilaterally) Course Course Narrative: Cardiac workup pending. Wells criteria is 4.5, ordered CT angio to r/o PE. - Reevaluation(s) Reevaluation #1: trop was negative. BNP 54. CXR not suggestive of any acute cardiopulmonary processes. CTA was negative for PE. HEART Score of 5, will admit for further workup. Time: 23:19 Reevaluation #2: Patient has been accepted for admission by dr. Chaves for further cardiac workup. Time: 23:42 Vital Signs Temperature 97.6 F 01/08/18 20:20 Pulse Rate 119 01/08/18 20:20 Respiratory Rate 18 01/08/18 20:20 Blood Pressure 156/103 01/08/18 20:20 O2 Sat by Pulse Oximetry 100 01/08/18 20:20 Temperature 97.6 F 01/08/18 20:20 Pulse Rate 102 01/08/18 23:22 Respiratory Rate 16 01/08/18 23:22 Blood Pressure 161/76 01/08/18 23:22 O2 Sat by Pulse Oximetry 100 01/08/18 23:22 Oxygen Delivery Oxygen Delivery Nasal Cannula Chest Pain - Medical Records Medical records reviewed: Yes I reviewed the patient's medical records. - Lab Data Lab results reviewed: Yes I reviewed the patient's lab results. Result diagrams: 01/08/18 20:28 01/08/18 20:28 Lab Results 01/08/18 01/08/18 01/08/18 Range/Units 20:28 20:28 20:28 WBC 7.3 (4.3-11.1) K/mcL RBC 4.73 (4.19-5.50) M/mcL Hgb 11.9 L (12.9-16.9) g/dL Hct 39.4 (37.5-50.1) % MCV 83.3 (83.0-100.0) fL MCH 25.2 L (28.0-33.3) pg MCHC 30.2 L (31.6-35.5) g/dL RDW 16.3 H (11.5-14.5) % Plt Count 211 (140-400) K/mcL MPV 9.6 (9.4-12.4) fL Immature Gran % 0.8 (0-4) % Seg Neutrophils % 74.5 % Lymphocytes % 15.0 % Monocytes % 8.8 % Eosinophils % 0.8 % Basophils % 0.1 % Neutrophils # 5.4 (1.6-8.9) K/mcL Lymphocytes # 1.1 (0.6-4.6) K/mcL Monocytes # 0.6 (0.0-1.3) K/mcL Eosinophils # 0.1 (0.0-0.6) K/mcL Basophils # 0.0 (0.0-0.2) K/mcL PT 9.8 (9.4-12.1) Seconds INR 0.9 APTT 25.7 L (26.0-36.0) Seconds Sodium 137 (136-145) mEq/L Potassium 4.1 (3.5-5.1) mEq/L Chloride 108 H (98-107) mEq/L Carbon Dioxide 25 (23-29) mEq/L BUN 12 (6-20) mg/dL Creatinine 1.08 (0.70-1.30) mg/dL Est GFR ( Amer) > 60 (> 60) Est GFR (Non-Af Amer) > 60 (> 60) BUN/Creatinine Ratio 11 (6-26) Glucose 85 (70-105) mg/dL Calculated Osmolality 283 (280-300) Calcium 8.6 (8.6-10.3) mg/dL Troponin I < 0.03 (< 0.04) ng/mL B-Natriuretic Peptide (Less than 100) pg/mL 01/08/18 Range/Units 20:28 WBC (4.3-11.1) K/mcL RBC (4.19-5.50) M/mcL Hgb (12.9-16.9) g/dL Hct (37.5-50.1) % MCV (83.0-100.0) fL MCH (28.0-33.3) pg MCHC (31.6-35.5) g/dL RDW (11.5-14.5) % Plt Count (140-400) K/mcL MPV (9.4-12.4) fL Immature Gran % (0-4) % Seg Neutrophils % % Lymphocytes % % Monocytes % % Eosinophils % % Basophils % % Neutrophils # (1.6-8.9) K/mcL Lymphocytes # (0.6-4.6) K/mcL Monocytes # (0.0-1.3) K/mcL Eosinophils # (0.0-0.6) K/mcL Basophils # (0.0-0.2) K/mcL PT (9.4-12.1) Seconds INR APTT (26.0-36.0) Seconds Sodium (136-145) mEq/L Potassium (3.5-5.1) mEq/L Chloride (98-107) mEq/L Carbon Dioxide (23-29) mEq/L BUN (6-20) mg/dL Creatinine (0.70-1.30) mg/dL Est GFR ( Amer) (> 60) Est GFR (Non-Af Amer) (> 60) BUN/Creatinine Ratio (6-26) Glucose (70-105) mg/dL Calculated Osmolality (280-300) Calcium (8.6-10.3) mg/dL Troponin I (< 0.04) ng/mL B-Natriuretic Peptide 54 (Less than 100) pg/mL - Radiology Data Radiology results reviewed: Yes I reviewed the patient's radiology results. - EKG Data EKG attestation: Yes I reviewed and interpreted this EKG. EKG shows normal: sinus rhythm Rate: tachycardia Rhythm: NSR [place]/QRS: normal When compared to previous EKG there are: no significant changes Interpretation: no acute changes, other (sinus tachy) Heart Score - Score History: Moderately Suspicious EKG: Normal Age: 45-65 Risk Factors: Equal/Greater than 3 risk factor or history of atherosclerotic disease Troponin: Less than normal limit HEART Score Total: 4 Attestation Statement - Attestation Attestation: I examined this patient and my medical decision-making was reviewed with the Resident Physician. I agree with the documented findings, disposition and treatment plan as described except to the extent set forth below. Chest pain, heart score is greater than 4. Patient will need to be admitted for serial cardiac biomarkers trending as well as cardiac consultation. Patient's symptoms are fairly atypical in nature. Initial EKG is nondiagnostic for STEMI. We will try nitroglycerin, aspirin was administered. Patient is stable at time of admission
[2018-01-08 20:45] LABS: INR 0.9; Prothrombin Time 9.8 Seconds (9.4-12.1)
[2018-01-08 20:48] LABS: Activated Partial Thrombo Time 25.7 Seconds (26.0-36.0)
[2018-01-08 20:59] LABS: BUN/Creatinine Ratio 11 (6-26); Blood Urea Nitrogen 12 mg/dL (6-20); Calcium 8.6 mg/dL (8.6-10.3); Carbon Dioxide 25 mEq/L (23-29); Chloride 108 mEq/L (98-107); Glucose 85 mg/dL (70-105); Osmolality,Calculated 283 (280-300); Potassium 4.1 mEq/L (3.5-5.1); Sodium 137 mEq/L (136-145); eGFR For African Americans > 60 (> 60); eGFR For Non-African Americans > 60 (> 60)
[2018-01-08 21:00] LABS: Troponin I < 0.03 ng/mL (< 0.04)
[2018-01-08] MEDS ORDERED: GI Cocktail 40 ML EACH PO ONE (23:32)
[2018-01-08] MEDS ORDERED: Nitroglycerin 1 INCH/GM PACKET TP ONE (23:32)
[2018-01-09] MEDS ORDERED: *HR* Heparin 5,000 UNIT/ML VIAL IVP PRN ×2 (03:50)
[2018-01-09] MEDS ORDERED: *HR* Heparin 5,000 UNIT/ML VIAL IVP ONE (03:50)
[2018-01-09] MEDS ORDERED: Naloxone 0.4 MG/ML INJ IVP PRN (03:53)
[2018-01-09] MEDS ORDERED: Acetaminophen 325 MG TABLET PO PRN (03:53)
[2018-01-09] MEDS ORDERED: traMADol 50 MG TABLET PO PRN (03:53)
[2018-01-09] MEDS ORDERED: Heparin 25,000 UNIT/500 ML D5W 25,000 UNIT/500 ML BAG IVC SCH (04:00)
--- NOTE | 2018-01-09 04:25 | Internal Med History&Physical ---
Date of Encounter: 01/09/18 Time of Encounter: 03:30 Assessment and Plan (1) Chest pain Current visit: Yes Status: Acute 1. Will cycle troponins and EKG's. 2. Will order ECHO. 3. If negative for DVT and PE, then I would proceed with cardiac work-up. 4. Heparin gtt started empirically for concerns of PE/DVT while waiting for test results. Qualifiers: Chest pain type: chest pain on breathing Qualified Code(s): R07.1 - Chest pain on breathing; R07.81 - Pleurodynia (2) Lower extremity edema Current visit: Yes Status: Acute 1. Patient has L>R lower extremity edema and calf tenderness concerning for DVT. 2. Heparin drip started empirically for now until test results available. 3. Doppler legs to rule out DVT. (3) DVT prophylaxis Current visit: No Status: Acute 1. Heparin gtt as above. Internal Medicine - H&P: HPI Chief complaint: chest pain Admitted From: Emergency Dept Plans for Post Hospital Care: Home History of present illness: Mr. Cortes is a 47 year old male who presents to the ER tonight with complaints of sharp chest pain associated with dyspnea and diaphoresis. 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 He had sudden onset of sharp chest pain associated with dyspnea and diaphoresis. His pain evolved into substernal pain and pressure, but he still has some pain with deep inspiration. He therefore left work and came straight to the ER here for evaluation. Workup in the ER was negative except for the fact he was tachycardic. He had a CT angiogram of the chest performed in the ER which was negative. He was then admitted to hospitalist service for further workup and care. Upon my assessment of the patient, he feels better, but he still remains borderline tachycardic. He describes a sudden onset of sharp chest pain at work tonight associated with dyspnea and diaphoresis. Upon further questioning , he states he's been having pain and cramps behind his left knee/calf. He's had some swelling of his left leg compared his right leg. He denies any prolonged travel, injury to his leg vessels, underlying malignancy, and/or any family history of blood clots. Given these symptoms, I am still concerned about DVT/PE despite a negative CT angiogram of chest. I am going to start him on heparin drip and order Dopplers of his legs and ECHO. If above negative, we can likely proceed with cardiac workup at that point. Patient does have remote history of heart attack many years ago. He used to be diabetic and suffer from ongoing hypertension, hyperlipidemia, and morbid obesity. He is a former patient of mine many years ago from my former practice. He underwent gastric bypass surgery several years ago and was able to wean off most of his medications. He is no longer diabetic. However, he has since gained some weight and is back on antihypertensive therapy, statins, and aspirin. He is still more than 100 pounds less than his previous maximum weight of roughly 450 pounds. Past Med Surg Social Fam HX - Past Medical History Attestation: Yes The following information was validated with the patient. Source: patient, old records reviewed Medical history: hypertension, myocardial infarction, other Psychiatric history: anxiety, depression - Past Surgical History Surgical History: appendectomy, cholecystectomy, herniorrhaphy, orthopedic, other, other (gastric bypass surgery) - Social History Smoking Status: Never smoker Smokeless Tobacco Status: No Alcohol use: none Drug use: none Occupational status: employed Current living situation: Home, With Family Activity Level: Independent ambulation Recent Out of Country Travel Within the Last 8 Weeks: No - Family History Mother Living Status: Age at : 72 Cause of : resp failure Hx Family Cardiac Disorders: Yes Hx Family Respiratory Disorders: Yes (copd) Hx Family GI Disorders: Yes (liver failure) Hx Family Endocrine Disorder: Yes Hx Family Musculoskeletal Disorders: Yes (arthritis) Father Living Status: Hx Family Cancer: Yes (esophageal) Internal Medicine - H&P: Meds Atenolol [Tenormin] 25 mg PO DAILY 06/23/16 [History] HYDROcodone/Acet 5/325 mg [Philipp 5-325 mg] 1 tab PO Q6H PRN 12/08/16 [History] Lisinopril [Zestril] 40 mg PO DAILY 12/08/16 [History] Diclofenac Sodium [Voltaren] 75 mg PO BID 05/28/17 [History] Furosemide [Lasix] 40 mg PO DAILY PRN #30 07/08/17 [Rx] Amoxicillin 875 mg PO BID #20 tablet 11/06/17 [Rx] Carafate 11/06/17 [History] Promethazine/Codeine [Phenergan/Codeine] 5 - 10 ml PO QPM #90 ml 11/06/17 [Rx] Vitamin B-1 11/06/17 [History] Vitamin D 11/06/17 [History] 3 Allergy/AdvReac Type Severity Reaction Status Date / Time No Known Allergies Allergy Verified 01/08/18 20:23 - Constitutional Constitutional: no chills, no fever(s), no night sweats - EENT Eyes: no blurry vision, no change in vision Ears: no ear pain, no tinnitus Nose, mouth and throat: no nasal congestion, no sinus pressure, no sore throat - Cardiovascular Cardiovascular ROS IM: chest pain, diaphoresis, dyspnea, dyspnea on exertion, lightheadedness, palpitations, no paroxysmal nocturnal dyspnea, no syncope - Respiratory Respiratory: pain on inspiration, no cough, no hemoptysis, no chest congestion, no excessive phlegm production, no change in phlegm color - Gastrointestinal Gastrointestinal: no abdominal pain, no diarrhea, no hematemesis, no hematochezia, no melena, no vomiting - Genitourinary Genitourinary ROS male: no dysuria, no flank pain, no hematuria - Musculoskeletal Musculoskeletal ROS IM: muscle cramps, no arthralgias, no back pain - Integumentary Integumentary IM: no rash, no jaundice - Neurological Neurological ROS: no dizziness, no focal weakness, no frequent falls, no headache(s) - Psychiatric Psychiatric: no anxiety, no depression - Endocrine Endocrine IM: no polydipsia, no polyuria - Hematologic/Lymphatic Hematologic/Lymphatic: no easy bruising, no lymphadenopathy - Allergic/Immunologic Allergic/Immunologic: no wheezing, no GI upset with certain foods - Constitutional Vitals: Temp Pulse Resp BP Pulse Ox 98.2 F 105 18 135/71 98 01/09/18 00:31 01/09/18 00:31 01/09/18 00:31 01/09/18 00:31 01/09/18 00:31 General appearance: Present: cooperative, A&O X 3, morbidly obese, pleasant, answers questions appropriately - Head Head exam: Present: normal inspection - Eye Eye exam: Present: EOMI, PERRL. Absent: scleral icterus Pupils: Present: normal accommodation - ENT ENT exam: Present: mucous membranes dry, normal exam, normal oropharynx - Neck Neck exam general surgery: Present: full ROM, supple. Absent: tenderness, nuchal rigidity, thyromegaly - Respiratory Respiratory exam: Present: CTAB. Absent: accessory muscle use, chest wall tenderness, rales, respiratory distress, rhonchi, wheezes - Cardiovascular Cardiovascular exam: Present: distant heart sounds, +S1, +S2, tachycardia. Absent: diastolic murmur, JVD, systolic murmur - GI/Abdominal GI/Abdominal exam: Present: normal bowel sounds, soft. Absent: hepatomegaly, mass, splenomegaly, tenderness - Extremities Exam Extremities exam: Present: calf tenderness (left ), full ROM, normal capillary refill, pedal edema (L>R), warm, radial pulses palpable and symmetrical. Absent : joint swelling - Back Exam Back exam: Absent: CVA tenderness (L), CVA tenderness (R) - Neurological Exam Neurological exam: Present: alert, CN II-XII intact, oriented X3, no focal deficits - Psychiatric Psychiatric exam: Present: normal affect, normal mood - Skin Skin exam: Present: dry, warm. Absent: rash Internal Med - H&P Results - Labs CBC & Chem 7: 01/08/18 20:28 01/08/18 20:28 - EKG Data -: EKG Interpreted by Myself - EKG Data Prior EKG available for review: no EKG comments: 01/09/18 04:31 Sinus tachycardia - Diagnostic Studies Chest x-ray Status: image reviewed by me (negative) - VTE Reasons for not Prescribing Prophylaxis: Not indicated-Anticoagulated or INR therapeutic
[2018-01-09] MEDS: 0.9 % Sodium Chloride 1,000 ML IVC SCH ×2 (04:30→14:17)
[2018-01-09 05:11] LABS: Basophils % 0.3 %; Eosinophils # 0.1 K/mcL (0.0-0.6); Eosinophils % 0.7 %; Hematocrit 35.1 % (37.5-50.1); Hemoglobin 10.6 g/dL (12.9-16.9); Immature Granulocytes % 0.7 % (0-4); Lymphocytes % 13.2 %; Mean Corpuscular HGB Conc 30.2 g/dL (31.6-35.5); Mean Corpuscular Hemoglobin 25.2 pg (28.0-33.3); Mean Corpuscular Volume 83.4 fL (83.0-100.0); Mean Platelet Volume 10.5 fL (9.4-12.4); Monocytes # 0.6 K/mcL (0.0-1.3); Monocytes % 8.9 %; Neutrophils # 5.5 K/mcL (1.6-8.9); Platelet Count 209 K/mcL (140-400); Red Blood Count 4.21 M/mcL (4.19-5.50); Red Cell Distribution Width 16.4 % (11.5-14.5); Segmented Neutrophils % 76.2 %
[2018-01-09 05:32] LABS: Troponin I < 0.03 ng/mL (< 0.04)
[2018-01-09 05:36] LABS: Alanine Aminotransferase 9 Units/L (7-52); Albumin 3.2 g/dL (3.5-5.7); Albumin/Globulin Ratio 1.3 (1.1-2.2); Alkaline Phosphatase 85 Units/L (34-104); Aspartate Amino Transferase 12 Units/L (13-39); BUN/Creatinine Ratio 13 (6-26); Bilirubin,Total 0.3 mg/dL (0.3-1.0); Blood Urea Nitrogen 12 mg/dL (6-20); Calcium 8.2 mg/dL (8.6-10.3); Carbon Dioxide 24 mEq/L (23-29); Chloride 109 mEq/L (98-107); Chol/HDL Ratio 3.2 (0-4.9); Cholesterol 126 mg/dL (< 200); Globulin 2.5 g/dL (2.4-3.5); Glucose 86 mg/dL (70-105); HDL Cholesterol 40 mg/dL (40-59); LDL Cholesterol,Calculated 63 mg/dL (0-99); Magnesium 2.2 mg/dL (1.6-2.6); Osmolality,Calculated 287 (280-300); Potassium 3.6 mEq/L (3.5-5.1); Sodium 139 mEq/L (136-145); Total Protein 5.7 g/dL (6.4-8.9); Triglycerides 116 mg/dL (< 150); eGFR For African Americans > 60 (> 60); eGFR For Non-African Americans > 60 (> 60)
--- NOTE | 2018-01-09 14:02 | Event Note ---
Date of Encounter: 01/09/18 Time of Encounter: 14:01 Seen and examined. Admitted overnight with chest pain. W/u negative for DVT/PE. Stop heparin drip. Trops not elevated. EKG with no acute ST or T wave changes. Patient had breakfast and was eating lunch while I was in the room. Will make NPO after midnight and order a stress test for the am.
[2018-01-09] MEDS ORDERED: Furosemide 20 MG TABLET PO PRN (15:13)
[2018-01-09] MEDS: Thiamine (B-1) 100 MG TABLET PO SCH (16:00)
--- NOTE | 2018-01-09 20:17 | Electrocardiograph Report ---
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
[2018-01-09] MEDS: Sucralfate 1 GM TABLET PO SCH (21:18)
[2018-01-09] MEDS: *HR* HYDROcodone/Acet 5/325 mg TABLET PO PRN (21:26)
[2018-01-10 04:56] LABS: Basophils % 0.4 %; Eosinophils # 0.1 K/mcL (0.0-0.6); Eosinophils % 1.1 %; Hematocrit 34.6 % (37.5-50.1); Hemoglobin 10.3 g/dL (12.9-16.9); Immature Granulocytes % 1.1 % (0-4); Lymphocytes # 0.9 K/mcL (0.6-4.6); Lymphocytes % 16.1 %; Mean Corpuscular HGB Conc 29.8 g/dL (31.6-35.5); Mean Corpuscular Hemoglobin 25.1 pg (28.0-33.3); Mean Corpuscular Volume 84.2 fL (83.0-100.0); Mean Platelet Volume 10.1 fL (9.4-12.4); Monocytes # 0.5 K/mcL (0.0-1.3); Platelet Count 173 K/mcL (140-400); Red Blood Count 4.11 M/mcL (4.19-5.50); Red Cell Distribution Width 16.2 % (11.5-14.5); Segmented Neutrophils % 72.3 %
[2018-01-10 05:23] LABS: BUN/Creatinine Ratio 15 (6-26); Blood Urea Nitrogen 12 mg/dL (6-20); Calcium 8.1 mg/dL (8.6-10.3); Carbon Dioxide 25 mEq/L (23-29); Chloride 110 mEq/L (98-107); Glucose 94 mg/dL (70-105); Osmolality,Calculated 292 (280-300); Potassium 4.1 mEq/L (3.5-5.1); Sodium 141 mEq/L (136-145); eGFR For African Americans > 60 (> 60); eGFR For Non-African Americans > 60 (> 60)
[2018-01-10] MEDS: *HR* HYDROcodone/Acet 5/325 mg TABLET PO PRN ×2 (06:07→22:40)
[2018-01-10] MEDS: Lisinopril 20 MG TABLET PO SCH (08:33)
[2018-01-10] MEDS: Cholecalciferol (D-3) 1,000 UNIT TABLET PO SCH (08:33)
[2018-01-10] MEDS: Thiamine (B-1) 100 MG TABLET PO SCH (08:33)
[2018-01-10] MEDS: Sucralfate 1 GM TABLET PO SCH ×2 (08:33→20:21)
[2018-01-10 09:31] LABS: Estimated Average Glucose 108 mg/dl; Hemoglobin A1C 5.4 %
--- NOTE | 2018-01-10 10:36 | Internal Med Progress Note ---
Date of Encounter: 01/10/18 Time of Encounter: 10:36 - Constitutional Vitals: Temp Pulse Resp BP Pulse Ox 97.9 F 88 18 143/81 98 01/10/18 07:17 01/10/18 07:17 01/10/18 07:17 01/10/18 07:17 01/10/18 07:17 General appearance: Present: cooperative, A&O X 3, morbidly obese, pleasant, answers questions appropriately Internal Medicine: Result - Labs CBC & Chem 7: 01/10/18 03:45 01/10/18 03:45 Labs: Short CBC 01/10/18 Range/Units 03:45 WBC 5.6 (4.3-11.1) K/mcL Hgb 10.3 L (12.9-16.9) g/dL Hct 34.6 L (37.5-50.1) % Plt Count 173 (140-400) K/mcL Neutrophils # 4.0 (1.6-8.9) K/mcL BMP 01/10/18 03:45 Sodium 141 Potassium 4.1 Chloride 110 H Carbon Dioxide 25 BUN 12 Creatinine 0.80 Glucose 94 Calcium 8.1 L Cardiac Enzymes 01/09/18 01/09/18 Range/Units 10:24 15:33 Troponin I < 0.03 < 0.03 (< 0.04) ng/mL - ABG Interpretation ABG results: PT/INR, D-dimer PT 9.8 Seconds (9.4-12.1) 01/08/18 20:28 - Impressions Impressions Echocardiogram 01/09/18 03:53 Impressions: LVEF 60-65%. Normal right ventricular structure and function. No significant valvular dysfunction. No pulmonary hypertension. Left Ventricular Wall Motion: Rest Echo Findings All wall segments showed normal motion. Findings: Study Quality * Technically sub-optimal due to body habitus. ECG Findings * Normal sinus rhythm. Left Ventricle * LVEF 60-65%. * Normal LV chamber size, wall thickness and function. * Indeterminate diastolic function. Right Ventricle * Normal right ventricular structure and function. Left Atrium * Normal left atrial size. Right Atrium * Normal right atrial size. Aortic Valve * No aortic regurgitation. * Aortic valve not well visualized. * No aortic stenosis. Mitral Valve * No mitral regurgitation. * Mitral valve structure not optimally visualized. * No mitral stenosis. Tricuspid Valve * Tricuspid valve not well visualized. * Trace tricuspid regurgitation. * Estimated RA pressure is 3 mmHg. * Estimated RVSP is 28 mmHg. * No pulmonary hypertension. Pulmonic Valve * Pulmonic valve is not well visualized. * No pulmonic stenosis. * No pulmonic regurgitation. Pulmonary Artery * Pulmonary artery not well visualized. Aorta * Not well visualized. Pericardium * There is no pericardial effusion present. Interatrial Septum * No evidence of PFO by color Doppler. IVC * Normal IVC dimensions and inspiratory collapse. - VTE Reasons for not Prescribing Prophylaxis: Not indicated-Anticoagulated or INR therapeutic Documentation of Mechanical Device: Graduated compression elastic hosiery Consult Discharge Plan - Plan Referrals: Randall Jacob MD [Primary Care Provider] -
--- NOTE | 2018-01-10 13:32 | Cardiology Consult Note ---
<Marcelo Martins R - Last Filed: 01/10/18 14:03> Date of Encounter: 01/10/18 Time of Encounter: 13:32 Assessment and Plan (1) Chest pain Current Visit: Yes Status: Acute Acute onset of chest pain evening of 01/08/18, sharp, across chest into right neck associated with dyspnea and diaphoresis. Constant chest pressure since that time, no relief with nitro paste. Worsening dyspnea over recent months. Troponins negative x 4. EKG no ischemic changes. Negative stress test 07/2017. LHC 12/2014 showed normal coronaries. TTE 01/09/18 EF 60-65%, normal wall motion. No signficant valvular dysfunction. Chest CTA negative and CXR negative. Risk factors for CAD include HTN and morbid obesity. Discussed with Dr. Dueñas. Given worsening dyspnea and his persistent chest pain , recommends LHC. R/B/A discussed. Pt has already eaten today. Plan for LHC tomorrow. Qualifiers: Chest pain type: unspecified Qualified Code(s): R07.9 - Chest pain, unspecified (2) Dyspnea Current Visit: Yes Status: Acute BNP 54, negative CXR. TTE EF preserved, normal wall motion. Indeterminate diastolic function. Concerning for anginal equivalent. Plan for LHC tomorrow as above. Qualifiers: Dyspnea type: unspecified Qualified Code(s): R06.00 - Dyspnea, unspecified (3) Morbid obesity with BMI of 50.0-59.9, adult Current Visit: No Status: Chronic Lifestyle modification needed. Discussion w patient/family: The assessment and plan as outlined above was discussed with the patient and/or family members who expressed understanding and agreement. All questions were answered. Thank you for involving us in the care of your patient. Please call with any questions. I will discuss all the above with Dr. Dueñas and make changes as necessary. History of Present Illness Consult date: 01/10/18 Requesting physician: Kimberly Contreras Consult reason: chest pain Chief complaint: chest pain History of present illness: Mr. Cortes is a 47 year old male with PMH of obesity and hx of gastric bypass , prior DM that was taken off meds after gastric bypass, HTN, who presented to the ER with complaints of sharp chest pain associated with dyspnea and diaphoresis. 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 Symptoms started at rest while he was receiving report. Pain radiated to right neck. It was sudden onset, sharp, and associated with dyspnea and diaphoresis. His pain evolved into substernal chest pain and pressure, reports continuous mild pressure, worse with deep inspiration. Nitro patch was applied without relief. Pt was tachycardic in ED. CT chest obtained-- negative for PE. CXR negative. Troponin negative x 4. No EKG changes. Pt also reported BLE edema, dopplers negative for PE. Cardiology consulted for continuous chest pain. Dyspnea has worsened over recent months. Of note, documented hx of a remote [place], but [facility] 2014 showed normal coronaries. Negative stress test 07/2017. TTE 01/09/18 EF preserved, normal wall motion. Past Med Surg Social Fam HX - Past Medical History Medical history: hypertension, myocardial infarction, other Psychiatric history: anxiety, depression - Past Surgical History Surgical History: appendectomy, cholecystectomy, herniorrhaphy, orthopedic, other, other (gastric bypass surgery) - Social History Smoking Status: Never smoker Smokeless Tobacco Status: No Alcohol use: none Drug use: none - Family History Mother Living Status: Age at : 72 Cause of : resp failure Hx Family Cardiac Disorders: Yes Hx Family Respiratory Disorders: Yes (copd) Hx Family GI Disorders: Yes (liver failure) Hx Family Endocrine Disorder: Yes Hx Family Musculoskeletal Disorders: Yes (arthritis) Father Living Status: Hx Family Cancer: Yes (esophageal) Medications and Allergies HYDROcodone/Acet 5/325 mg [Posey 5-325 mg] 1 tab PO Q6H PRN 12/08/16 [History] Lisinopril [Zestril] 40 mg PO DAILY 12/08/16 [History] Furosemide [Lasix] 40 mg PO DAILY PRN #30 07/08/17 [Rx] Cholecalciferol (D-3) [Vitamin D] 1,000 unit PO DAILY 11/06/17 [History] Sucralfate [Carafate] 1 gm PO BID 11/06/17 [History] Thiamine HCl [Vitamin B-1] 50 mg PO DAILY 11/06/17 [History] Metoprolol Tartrate [Metoprolol Tartrate] 50 mg PO BID 01/09/18 [History] 3 Allergy/AdvReac Type Severity Reaction Status Date / Time No Known Allergies Allergy Verified 01/08/18 20:23 All Systems Review: The remainder of the systems were reviewed and are negative - Cardiovascular Cardiovascular: as per HPI, chest pain at rest, chest pain with exertion, dyspnea at rest, dyspnea on exertion, leg edema - Respiratory Respiratory: dyspnea Physical Examination Vital Signs, Last 4 Hours Temp Pulse Resp BP Pulse Ox 01/10/18 12:12 98.7 F 90 16 144/79 97 Vital Signs Temp Pulse Resp BP Pulse Ox 01/10/18 12:12 98.7 F 90 16 144/79 97 01/10/18 07:17 97.9 F 88 18 143/81 98 01/10/18 03:32 97.9 F 86 18 123/78 97 01/09/18 23:48 98.5 F 88 18 149/86 98 01/09/18 19:03 98.1 F 107 16 97 01/09/18 15:51 99.1 F 99 16 127/53 98 Intake and Output 01/09/18 01/10/18 01/10/18 23:59 07:59 15:59 Intake Total 220 / 220 1000 / 1000 Output Total 0 / 0 Balance 220 / 220 1000 / 1000 Intake: IV Fluids 1000 / 1000 0.9 % Sodium Chloride 1,000 ML 1000 / 1000 @ 100 mls/hr IVC .Q10H JEANA Rx#: [id number] Oral 220 / 220 Output: Urine 0 / 0 Other: # Voids 2 Weight 154.22 kg Patient Weight 01/10/18 23:59 Weight 154.22 kg General: Conversant, No Apparent Distress HEENT: Atraumatic, Normocephaly, Mucus Membranes Moist Neck: No JVD, Normal carotid pulses Cardiac: Reg Rate and Rhythm, Normal S1 and S2, No Murmur Lungs: Other (diminished) Neuro: Alert and responsive, No focal deficits noted Abdomen: Soft, Non-Tender Skin: No rashes noted on visualized skin Musculoskeletal: No Chest Wall Tenderness Extremities: Other (mild BLE edema) Results 01/10/18 03:45 01/10/18 03:45 Lab Results 01/09/18 01/09/18 01/10/18 15:33 16:31 03:45 WBC 5.6 Hgb 10.3 L Hct 34.6 L Plt Count 173 APTT 27.8 D Sodium Potassium Chloride Carbon Dioxide BUN Creatinine Glucose Calcium Magnesium Troponin I < 0.03 01/10/18 03:45 WBC Hgb Hct Plt Count APTT Sodium 141 Potassium 4.1 Chloride 110 H Carbon Dioxide 25 BUN 12 Creatinine 0.80 Glucose 94 Calcium 8.1 L Magnesium 2.0 Troponin I Short CBC 01/10/18 Range/Units 03:45 WBC 5.6 (4.3-11.1) K/mcL Hgb 10.3 L (12.9-16.9) g/dL Hct 34.6 L (37.5-50.1) % Plt Count 173 (140-400) K/mcL Neutrophils # 4.0 (1.6-8.9) K/mcL BMP 01/10/18 Range/Units 03:45 Sodium 141 (136-145) mEq/L Potassium 4.1 (3.5-5.1) mEq/L Chloride 110 H (98-107) mEq/L Carbon Dioxide 25 (23-29) mEq/L BUN 12 (6-20) mg/dL Creatinine 0.80 (0.70-1.30) mg/dL Glucose 94 (70-105) mg/dL Calcium 8.1 L (8.6-10.3) mg/dL Cardiac Enzymes 01/09/18 Range/Units 15:33 Troponin I < 0.03 (< 0.04) ng/mL Active Medications Acetaminophen (Tylenol) 650 mg PO Q6HR PRN PRN Reason: Mild Pain/Fever Stop: 07/11/18 03:54 Hydrocodone Bitart/Acetaminophen (Posey 5-325 Mg) 1 tab PO Q6H PRN PRN Reason: pain Stop: 07/11/18 15:14 Last Admin: 01/10/18 06:07 Dose: 1 tab Furosemide (Lasix) 40 mg PO DAILY PRN PRN Reason: Edema Stop: 07/11/18 15:14 Lisinopril (Zestril) 40 mg PO DAILY JEANA PRN Reason: Protocol Stop: 07/12/18 09:01 Last Admin: 01/10/18 08:33 Dose: Not Given Metoprolol Tartrate (Lopressor) 50 mg PO BID JEANA Stop: 07/11/18 21:01 Last Admin: 01/10/18 08:33 Dose: Not Given Naloxone HCl (Narcan) 0.4 mg IVP Q2MIN PRN PRN Reason: SEE COMMENTS Stop: 07/11/18 03:54 Oxycodone HCl (Roxicodone) 10 mg PO Q6HR PRN PRN Reason: Chest Pain Stop: 07/11/18 03:54 Sucralfate (Carafate) 1 gm PO BID JEANA Stop: 07/11/18 21:01 Last Admin: 01/10/18 08:33 Dose: Not Given Thiamine HCl (Vitamin B-1) 50 mg PO DAILY JEANA Stop: 07/11/18 15:16 Last Admin: 01/10/18 08:33 Dose: Not Given Tramadol HCl (Ultram) 50 mg PO Q6HR PRN PRN Reason: Moderate Pain Stop: 07/11/18 03:54 Vitamin D (Vitamin D) 1,000 unit PO DAILY JEANA Stop: 07/12/18 09:01 Last Admin: 01/10/18 08:33 Dose: Not Given - Imaging and Cardiology Stress Test: report reviewed Echo: report reviewed Cardiac cath: report reviewed - EKG Interpretation EKG results cardiology: personally reviewed (sinus tach, rate 112.), other (12 hr tele AVG HR 89, SR) Consult Discharge Plan - Plan Referrals: Randall Jacob MD [Primary Care Provider] - <Sharda Dueñas - Last Filed: 01/10/18 14:42> Date of Encounter: 01/10/18 - Attending Attestation I have personally performed a face to face evaluation on this patient. I have reviewed and agree with the care plan. History and Exam by me shows: 47 YOM with h/o DM, HTN, HLP, obesity complaining of worsening MARQUIS garcia last few weeks. He also had atypical chest pain with an unremarkable EKG. Last LHC 2015 unremarkable and last NST 6 months ago also unremarkable. With worsening MARQUIS and multiple CRFs LHC seems reasonable to rule out angina equivalent MARQUIS. R/B/A d/w patient and he agrees to proceed Assessment and Plan Discussion w patient/family: The assessment and plan as outlined above was discussed with the patient and/or family members who expressed understanding and agreement. All questions were answered. Thank you for involving us in the care of your patient. Please call with any questions. History of Present Illness History of present illness: Mr. Cortes is a 47 year old male All Systems Review: The remainder of the systems were reviewed and are negative Physical Examination Vital Signs, Last 4 Hours Temp Pulse Resp BP Pulse Ox 01/10/18 12:12 98.7 F 90 16 144/79 97 Results 01/10/18 03:45 01/10/18 03:45 Lab Results 01/09/18 01/09/18 01/10/18 15:33 16:31 03:45 WBC 5.6 Hgb 10.3 L Hct 34.6 L Plt Count 173 APTT 27.8 D Sodium Potassium Chloride Carbon Dioxide BUN Creatinine Glucose Calcium Magnesium Troponin I < 0.03 01/10/18 03:45 WBC Hgb Hct Plt Count APTT Sodium 141 Potassium 4.1 Chloride 110 H Carbon Dioxide 25 BUN 12 Creatinine 0.80 Glucose 94 Calcium 8.1 L Magnesium 2.0 Troponin I
--- NOTE | 2018-01-10 15:07 | Internal Med Progress Note ---
Date of Encounter: 01/10/18 Time of Encounter: 12:00 - Assessment and plan (1) Chest pain Current Visit: Yes Status: Acute Assessment and plan: 1 patient initially experienced acute onset of chest pain evening of 01/08/18 which was sharp radionecrosis chest into his right neck and associated dyspnea and diaphoresis. Since that time he has been experiencing constant chest pressure which is not relieved with nitroglycerin he has also been expressing worsening dyspnea over the past few months. Cardiac enzymes have been negative 4 EKG with no ischemic changes he did have a negative stress test 07/2017 he also had left heart 12/2014 which showed normal coronaries. TTE 01/09/18 with EF of 66% normal wall motion no significant valvular dysfunction. He did undergo a CTA of his chest which was negative and negative chest x-ray. I did discuss this case with Marcelo Martins NP with cardiology who will see the patient upon consult. We will make patient nothing by mouth after midnight for possible left heart catheter 2 continue with beta lemuel lisinopril nitroglycerin as needed for chest pain Qualifiers: Chest pain type: unspecified Qualified Code(s): R07.9 - Chest pain, unspecified (2) Dyspnea Current Visit: Yes Status: Acute Assessment and plan: 1 patient has been extensively increasing shortness of breath and past few months suspect this may be angina equivalent. Cardiology has been consulted and patient will undergo left heart catheter in the a.m. nothing by mouth after midnight Qualifiers: Dyspnea type: unspecified Qualified Code(s): R06.00 - Dyspnea, unspecified (3) Morbid obesity with BMI of 50.0-59.9, adult Current Visit: No Status: Chronic Assessment and plan: 1 patient does have a history of gastric bypass in the past he did lose some weight however he had gained back 100 pounds. Will discuss lifestyle modifications prior to discharge (4) LEXI on CPAP Current Visit: No Status: Chronic Assessment and plan: Continuous CPAP at night - Time Spent With Patient less than 15 minutes - Subjective Interval history: Upon initial assessment patient states he was feeling well he was waiting for his scheduled cardiac stress test however notified per cardiology Siria Martins NP that patient had stress completed in July which was negative for any ischemia or infarct since that was completed 6 months ago no further stress test recommended. Nursing asked the patient could have something to eat which patient was given lunch. Reviewed lab results as well as recommendations of cardiology with the patient. During conversation patient states he is continues to have chest pressure -which comes and goes and resolves on own also experiencing worsening dyspnea over the past few months. I did discuss these findings with Siria Martins [employer] SAF[employer]Y COMPLIANCE LEADER, requests consult which I will see patient upon consult. - Constitutional Vitals: Temp Pulse Resp BP Pulse Ox 98.7 F 90 16 144/79 97 01/10/18 12:12 01/10/18 12:12 01/10/18 12:12 01/10/18 12:12 01/10/18 12:12 General appearance: Present: cooperative, A&O X 3, morbidly obese, pleasant, answers questions appropriately - Head Head exam: Present: atraumatic, normocephalic - Eye Eye exam: Present: PERRL, conjuntiva pink, sclera anicteric Pupils: Present: PERRL - Neck Neck exam general surgery: Present: supple, trachea midline. Absent: lymphadenopathy - Respiratory Respiratory exam: Present: CTAB. Absent: accessory muscle use, rales, rhonchi, wheezes - Cardiovascular Cardiovascular exam: Present: RRR, +S1, +S2. Absent: diastolic murmur, gallop, rubs, systolic murmur - GI/Abdominal GI/Abdominal exam: Present: normal bowel sounds, soft, no peritoneal signs. Absent: distended, tenderness - Extremities Exam Extremities exam: Present: warm, radial pulses palpable and symmetrical. Absent : calf tenderness, cyanotic, pedal edema - Neurological Exam Neurological exam: Present: CN II-XII intact, oriented X3, no focal deficits. Absent: pronater drift, facial droop, speech deficit - Skin Skin exam: Present: dry, intact Internal Medicine: Result - Labs CBC & Chem 7: 01/10/18 03:45 01/10/18 03:45 Labs: Short CBC 01/10/18 Range/Units 03:45 WBC 5.6 (4.3-11.1) K/mcL Hgb 10.3 L (12.9-16.9) g/dL Hct 34.6 L (37.5-50.1) % Plt Count 173 (140-400) K/mcL Neutrophils # 4.0 (1.6-8.9) K/mcL BMP 01/10/18 03:45 Sodium 141 Potassium 4.1 Chloride 110 H Carbon Dioxide 25 BUN 12 Creatinine 0.80 Glucose 94 Calcium 8.1 L Cardiac Enzymes 01/09/18 Range/Units 15:33 Troponin I < 0.03 (< 0.04) ng/mL - ABG Interpretation ABG results: PT/INR, D-dimer PT 9.8 Seconds (9.4-12.1) 01/08/18 20:28 - VTE Reasons for not Prescribing Prophylaxis: Not indicated-Anticoagulated or INR therapeutic Documentation of Mechanical Device: Graduated compression elastic hosiery Consult Discharge Plan - Plan Referrals: Randall Jacob MD [Primary Care Provider] -
[2018-01-10] MEDS: *HR* OxyCODONE Immed Rel 5 MG TABLET PO PRN (19:32)
[2018-01-11] MEDS: *HR* HYDROcodone/Acet 5/325 mg TABLET PO PRN (04:36)
[2018-01-11] MEDS: Cholecalciferol (D-3) 1,000 UNIT TABLET PO SCH (09:16)
[2018-01-11] MEDS: *HR* OxyCODONE Immed Rel 5 MG TABLET PO PRN (09:16)
[2018-01-11] MEDS: Thiamine (B-1) 100 MG TABLET PO SCH (09:16)
[2018-01-11] MEDS: Sucralfate 1 GM TABLET PO SCH (09:16)
[2018-01-11] MEDS: Lisinopril 20 MG TABLET PO SCH (09:16)
[2018-01-11] MEDS ORDERED: ISOVUE-370 200 ML INFUS..BTL IV ONE (14:56)
[2018-01-11] MEDS ORDERED: Heparin 1,000 UNITS/500 mL 500 ML ONE (14:56)
[2018-01-11] MEDS ORDERED: 0.9 % Sodium Chloride 1,000 ML ONE ×2 (15:08→16:02)
[2018-01-11] MEDS ORDERED: Verapamil 5 MG/2 ML VIAL ONE (15:08)
[2018-01-11] MEDS ORDERED: *HR* Heparin 10,000 UNIT/10 ML VIAL ONE (15:08)
[2018-01-11] MEDS ORDERED: Nitroglycerin 1,000 MCG/10 ML VIAL IV ONE (15:08)
--- NOTE | 2018-01-11 15:51 | Pre-Sedation Evaluation ---
Pre-sedation evaluation - Pre-sedation checklist Date of procedure: 01/11/18 Procedure: [facility] Recent Vitals: Last Vital Signs Temp 98.4 F 01/11/18 14:52 Pulse 85 01/11/18 14:52 Resp 18 01/11/18 14:52 BP 141/74 01/11/18 14:52 Pulse Ox 98 01/11/18 14:52 H&P (including ROS) documented in medical record: Yes Previous reaction to sedatives/anesthetics: No Dietary Status: NPO after Midnight Dentition: No loose teeth or bridges ASA Classification *see protocol: CLASS II-Mild systemic disease Plan of Care: Pt appropriate candidate for procedure/moderate/conscious sedation , Risks/benefits of procedure/sedation discussed w/ patient/family
[2018-01-11] MEDS ORDERED: *HR* FentaNYL (PF) 100 MCG/2 ML VIAL ONE (16:02)
[2018-01-11] MEDS ORDERED: *HR* Midazolam HCl 5 MG/5 ML VIAL IVP ONE (16:02)
--- NOTE | 2018-01-11 17:01 | Invasive Diagnostic Lab Proc ---
Name: Lobo Cortes Date of Study: 01/11/2018 Date: 1970 Ht: 66.0in Medical Record#: [id number] Age: 47 Wt: 336.65lb Gender: Male BSA: 2.5 Order #: [id number] BMI: 54.36 Physicians Procedure Physician: Noe Barreto MD, [facility] Referring MD: Randall Jacob MD Referring MD: Staff Name Position [facility] Monitor 04:06 PM Jacqueline Wood RN School Bus Attendant 04:06 PM Crystal Gonzales RT (R) Scrub 04:06 PM Wally Yan RN School Bus Attendant 04:06 PM Indications Indication Unstable Angina Procedures Performed Procedure L HRT ARTERY/VENTRICLE ANGIO Pre-Procedure Checklist Informed consent is complete signed and on chart. H&P is on chart. ID band is on and ID verified with patient. Patient NPO for procedure The procedure was described for the patient and questions were answered. Blood Pressure: 136/74 ECG is on chart. Plan of Care Patient will tolerate the procedure without complications. Adequate level of comfort will be maintained. Hemodynamics will remain stable Patient will recover from procedure without complications. Respiratory function will be maintained. Cardiac rhythm will remain stable. Patient temperature will be maintained. Patient and/or family have verbalized understanding of the procedure. Patient Education Intravenous Access Time IV Size Location DC'd Fluid/Drip Rate Units RN 20g 1 1/" Patent On Arrival Lt Forearm 0.9NaCl Allergies lactose fish derived Latex cinnamon Fish Protein Vital Signs Time BP (mmHg) HR (bpm) O2 Sat. RR (bpm) LOC 04:08 PM / % 5 = Fully awake and oriented or at pre-proc level 04:13 PM / % 4 = Oriented but drowsy 04:13 PM / % 4 = Oriented but drowsy 04:28 PM / % 4 = Oriented but drowsy 04:03 PM 146 / 90 83 100 % 10 04:08 PM 126 / 69 93 100 % 04:13 PM 129 / 70 89 100 % 04:18 PM 121 / 69 84 99 % 12 04:23 PM 113 / 87 83 99 % 12 04:29 PM 125 / 75 86 100 % 15 04:33 PM 112 / 63 101 97 % 04:38 PM 105 / 69 96 98 % 04:43 PM 126 / 71 % Procedural Medications Time Medication Dose Units Method Given By 04:07 PM Oxygen 2 L/min nasal cannula Wally Yan RN 04:07 PM Versed 2 mg Intravenous Wally Yan RN 04:07 PM Fentanyl 50 mcg Intravenous Wally Yan RN 04:28 PM 0.5 ml Subcutaneous Noe Barreto MD, [facility] 04:31 PM Heparin 4000 units Nitroglycerin 200 mcg Verapamil 2.5 mg Intraarterial Noe Barreto MD, FAC 04:31 PM Versed 1 mg Intravenous Wally Yan RN 04:42 PM Fentanyl 25 mcg Intravenous Wally Yan RN ASA Classification: CLASS II- Mild systemic disease (i.e. well-controlled diabetes, hypertension, asthma, cigarette smoking) Kirby Score Preprocedure Postprocedure Activity 2- Moves 4 extremities sustained head lift Activity 2- Moves 4 extremities sustained head lift Circulation 2- SBP +/= 20 points of pre-anesthetic level Circulation 2- SBP +/= 20 points of pre-anesthetic level Consciousness 2- Awake and alert oriented x 3 Consciousness 2- Awake and alert oriented x 3 O2 Saturation 2- Able to maintain O2 satruation of 92% on room air O2 Saturation 2- Able to maintain O2 satruation of 92% on room air Respiratory 2- Able to deep breathe and cough well Respiratory 2- Able to deep breathe and cough well Total Score 10 Total Score 10 Contrast Agent: Isovue Diagnostic Contrast: 67 ml Total Contrast: 67 ml Fluoro Dose: 608 mGy Procedure Log Time Note Enter By 03:59 PM CathStat 04:02 PM Vitals capture started with the following parameters, Patient=Adult, Interval=5 min, Initial Cpfbtlbn=897 mmHg, Deflation Rate=5 mmHg, Cuff placed on Right Arm 04:02 PM Vitals capture stopped. 04:02 PM Vitals capture started with the following parameters, Patient=Adult, Interval=5 min, Initial Rwjdmjzd=852 mmHg, Deflation Rate=5 mmHg, Cuff placed on Right Arm 04:03 PM HR=83 bpm, RZZM=815/90 mmhg, HbQ5=486.0 %, Resp=10 B/min 04:06 PM Pt arrived to photo lab specialist 2 at 16:06 kamran 04:06 PM Lakeisha Ye RN Position: Monitor Time in: 16:06 kamran 04:06 PM Jacqueline Wood RN Position: School Bus Attendant Time in: 16:06 kamran 04:06 PM Crystal Gonzales RT (R) Position: Scrub Time in: 16:06 kamran 04:06 PM Wally Yan RN Position: School Bus Attendant Time in: 16:06 kamran 04:06 PM Patient charges- Angio tray pack, Navilyst 3mm J, Pulse Oximetry and ACIST tubing and transducer [email or web address] 04:06 PM IV Supplies used: J loop Angio Cath. [email or web address] 04:06 PM [facility] 04[facility]07 PM Hair removed from procedure site in procedure lab using clippers. Right wrist & right groin prepped with Chloraprep by Lakeisha Ye RN, then patient was draped. Skin intact. [email or web address] 04:07 PM Blanca paged/called 16:07. [email or web address] 04:07 PM Blanca responded and notified patient is ready 16:07 [email or web address] 04:07 PM Physician arrived 16: [email or web address] 04:07 PM Meet and greet completed [facility] 04:07 PM Sign in performed according to hospital policy. [place] [facility] [email or web address] 04:07 PM Procedure start 16:07 [email or web address] 04:07 PM Time: 16:07 Oxygen on at 2 L/min per nasal cannula by Wally Yan RN [place] [facility] ssdisabell 04:07 PM Time: 16:07 Versed 2 mg Intravenous Given by Wally Yan RN [place] [facility] ssdisabell 04:07 PM Time: 16:07 Fentanyl 50 mcg Intravenous Given by Wally Yan RN [place] [facility] ssdisabell 04:07 PM Recorded ECG: HR=88 Condition=Condition 1 04:08 PM Time: 16:08 Patient comfortable and pain free: Yes eligio 04:08 PM Time: 16:08LOC: 5 = Fully awake and oriented or at pre-proc level [email or web address] 04:08 PM HR=93 bpm, LGQG=845/69 mmhg, AvP9=221.0 %, Comment=SR 04:13 PM HR=89 bpm, HGCB=527/70 mmhg, JcF8=575.0 % 04:13 PM Time: 16:13 Patient comfortable and pain free: Yes eligio 04:13 PM Time: 16:13LOC: 4 = Oriented but drowsy tstheresammrafaela 04:15 PM ASA Class CLASS II- Mild systemic disease (i.e. well-controlled diabetes, hypertension, asthma, cigarette smoking) [email or web address] 04:18 PM HR=84 bpm, ANGR=487/69 mmhg, SpO2=99.0 %, Resp=12 B/min 04:23 PM HR=83 bpm, YRGO=956/87 mmhg, SpO2=99.0 %, Resp=12 B/min 04:27 PM Clinical Presentation: Unstable angina 04:27 PM Time out performed according to hospital policy 04:28 PM Time: 16:28 0.5 ml to right radial Subcutaneous Given by Noe Barreto MD, [facility] :28 PM Time: 16:13 Patient comfortable and pain free: Yes 04:28 PM Time: 16:13LOC: 4 = Oriented but drowsy 04:29 PM HR=86 bpm, RAZL=410/75 mmhg, PtQ9=480.0 %, Resp=15 B/min 04:31 PM Time: 16:31 Versed 1 mg Intravenous Given by Wally Yan RN jasen 04:31 PM Time: 16:31 Fentanyl 25 mcg Intravenous Given by Wally Yan RN 04:31 PM Access obtained by percutaneous puncture. 6Fr 10cm Terumo Iona sheath placed in right Radial artery. [id number] 04:31 PM Time: 16:31 Patient given 4,000 units Heparin, 200 mcg Nitroglycerin, and 2.5 mg Verapamil Intraarterial by Noe Barreto MD, [facility]. This is given to reduce risk of vessel spasm and thrombosis. 04:31 PM 0.035 145cm Navilyst 3mmJ wire [id number] 04:31 PM 5Fr TIG catheter inserted over the wire [facility] 04:32 PM wire removed. 04:33 PM TZ=508 bpm, HAVI=355/63 mmhg, SpO2=97.0 % 04:33 PM Recorded Pressure: Ao, WG=412, Condition=Condition 1 (Aorta) Ao 102/84/90 04:33 PM RCA angiography performed in multiple views. 04:34 PM LCA angiography performed in multiple views. 04:34 PM Recorded Pressure: Ao, HR=97, Condition=Condition 1 (Aorta) Ao 98/84/90 04:35 PM Recorded Pressure: Ao, PS=185, Condition=Condition 1 (Aorta) Ao 103/86/93 04:36 PM wire reinserted. [email or web address] 04:36 PM Catheter removed tsoumm 04:37 PM 5Fr Pigtail catheter inserted over the wire C tsoumm 04:37 PM Catheter selectively placed in left ventricle tsoumm 04:37 PM wire removed. tsoummers 04:38 PM HR=96 bpm, WOLP=851/69 mmhg, SpO2=98.0 % 04:38 PM Recorded Pressure: LV, IQ=592, Condition=Condition 1 (Left Ventricle) LV 120/0/12 04:39 PM Recorded Pressure: LV, Ao, HR=98, Condition=Condition 1 (Left Ventricle) LV 114/28/48, (Aorta) Ao 113/74/90 04:39 PM Bolus angiogram of left Ventricle complete: 10 ml/sec for a total of 20 mls tsoumm 04:39 PM Catheter removed [email or web address] 04:40 PM Procedure completed at 16:40 tsoummers 04:40 PM Sign out completed: Radiation Dose 607.58 mGy Fluoro Time: 1.6 Isovue 370 - 200ml contrast 67 ml given by Noe Barreto MD, [facility]. Complications: NoneCardiac Rehab Consult needed: NoConfirmed administered medications: Yes tsoummers 04:40 PM Arterial sheath pulled, Vasc Band closure device used and was Successful S/N. tsoummers 04:41 PM 10 ml air in Vasc Band. tsoummers 04:43 PM HXVD=754/71 mmhg 04:44 PM Time: 16:28LOC: 4 = Oriented but drowsy tsoummers 04:44 PM Time: 16:28 Patient comfortable and pain free: Yes tsoummers 04:44 PM Estimated Blood Loss: minimal tsoummers 04:44 PM Post ECG NSR tsoummers 04:44 PM Post Blood Pressure 126/71 tsoummers 04:45 PM 16:44 Post Pulses Rt Radial 2+ tsoummers 04:45 PM Information taught Cardiac Cath tsoummers 04:45 PM Education needs Procedure, Plan of Care, and Responsibilities of Patient in Care tsoummers 04:45 PM Learning barriers :None tsoummers 04:45 PM Education Methods Verbal tsoummers 04:45 PM Education evaluation Able to repeat information [facility] 04:45 PM Site status No bleeding/hematoma - Rt Wrist as reported by Crystal Gonzales RT (R) at 16:45 [facility] 04:46 PM Plavix, Effient or Brilinta given No oumm 04:46 PM Delay to floor No mm 04:46 PM No family present with patient. mm 04:46 PM Complications: None [facility] 04:46 PM Fluoro Time: 1.6 04:46 PM Isovue 370 - 200ml contrast [address] Barreto. [facility] 04:46 PM Radiation Dose 607.[address] [facility] 04:47 PM Report given to Anais GARG Pt taken to Room #49. 16:47 [facility] 04:48 PM Patient out of room: 16:48 [facility] 04:50 PM Coronary Dominance: right mm 04:50 PM Lesion found in Distal RCA. Pre Stenosis: 15 Pre ANNALISA Flow: [facility] 04:51 PM Right Coronary, Right Posterior Descending Arteries with Right Posterolateral and Acute Marginal branches with 15 % stenosis. If graft is supplying this area, 0 % stenosis [facility] Complications Complication None Hemodynamics Pressures Site Systolic/A Wave Diastolic/V Wave Mean AO 102 84 90 AO 98 84 90 AO 103 86 93 LV 120 0 12 LV 114 28 48 AO 113 74 90 Post Procedure Information Blood Pressure: 126/71 mmHg Rhythm: NSR Post procedural instructions were given Closure Device Time Device Success/Fail 01/11/2018 4:40:00 PM Mechanical Compression Successful Site Checks Time Location Status Staff Sheath In? Note 04:45 PM Rt Wrist No bleeding/hematoma Noe Gonzales RT (R) Pulses Time Site Pre-Procedure Post-Procedure Note Bilateral DP & PT 1+ Bilateral radial 2+ 4:44:00 PM Rt Radial 2+ Updated by Lakeisha Ye RN on 01/11/2018 4:52:16 PM electronically signed on 01/11/2018 4:52:49 PM with status of Final
[2018-01-11] MEDS ORDERED: Ondansetron 4 MG/2 ML VIAL IVP ONE (18:22)
[2018-01-11] MEDS ORDERED: Ondansetron 4 MG/2 ML VIAL ONE (18:24)
--- NOTE | 2018-01-11 18:27 | Discharge Summary ---
- NOTES TO OUTPATIENT PROVIDER Notes to Outpatient Provider: No cardiac source for chest pain patient may benefit from a EGD as outpatient to r/o GI source Orders not resulted at time of discharge: Pending orders 01/09/18 06:00 ECG 12 lead ECG [ECG] AM 0600 01/10/18 14:10 CL Cardiac Catheterization [CL] Routine Date of Encounter: 01/11/18 Time of Encounter: 18:25 - Discharge Diagnosis (1) Chest pain Priority: Primary Status: Acute Comments: 1 patient underwent cardiac catheterization with no blockage or stent placement. Cardiac enzymes have been negative no ST-T wave abnormalities. Echo EF 60-65%. No cardiac source for chest pain patient will follow-up with primary care physician consider EGD as outpatient to rule out any GI source. Qualifiers: Chest pain type: unspecified Qualified Code(s): R07.9 - Chest pain, unspecified (2) Dyspnea Priority: Primary Status: Acute Comments: 1 patient is morbidly obese which more likely is contributing to dyspnea will continue with CPAP at night encouraged patient to lose weight Qualifiers: Dyspnea type: unspecified Qualified Code(s): R06.00 - Dyspnea, unspecified (3) Morbid obesity with BMI of 50.0-59.9, adult Priority: Secondary Status: Chronic Comments: 1 patient had gastric bypass in the past-however he continues to be morbidly obese encouraged patient to lose [id number] low-calorie diet, increase activity (4) LEXI on CPAP Priority: Secondary Status: Chronic Comments: 1 continue with CPAP Hospital course: Mr. Cortes is a 47 year old male past medical history of obesity history gastric bypass prior diabetes high blood pressure he presented to the emergency department at [facility] with complaints of sharp chest pain associated with dyspnea and diaphoresis. Symptoms occurred suddenly while at rest. Pain radiates to right neck. Pain was not relieved with any nitroglycerin it eventually evolved to a mild constant pressure. Originally it was thought that he may have had a PE CT of chest was negative he was initiated on heparin and bilateral lower extremity Dopplers were obtained which were negative for DVT. Cardiac enzymes were negative EKG with no ischemic changes he did have a negative stress test 2016 left heart catheter 12/2014 showed normal coronaries TTE 01/09/18 showed EF of 6065% with normal wall motion Heparin was stopped cardiology was consult to due to the continued chest pain. He underwent a cardiac catheterization 2017 which showed minimal blockage no stent placed. Patient has been hemodynamically stable, he does have some nausea after receiving pain medication. He will be discharged home once he meets post-catheter discharge criteria. I did review follow-up recommendations. Patient is to follow-up with primary care physician since this provider knows him best advised outpatient EGD to rule out any GI source of chest pressure. Patient verbalized understanding . - Time Spent with Patient Total time spent providing and/or coordinating discharge services: - Discharge Medications Home Medications: HYDROcodone/Acet 5/325 mg [[place] 5-325 mg] 1 tab PO Q6H PRN 12/08/16 [History] Lisinopril [Zestril] 40 mg PO DAILY 12/08/16 [History] Furosemide [Lasix] 40 mg PO DAILY PRN #30 07/08/17 [Rx] Cholecalciferol (D-3) [Vitamin D] 1,000 unit PO DAILY 11/06/17 [History] Sucralfate [Carafate] 1 gm PO BID 11/06/17 [History] Thiamine HCl [Vitamin B-1] 50 mg PO DAILY 11/06/17 [History] Metoprolol Tartrate 50 mg PO BID 01/09/18 [History] Allergies/Adverse Reactions: 3 Allergy/AdvReac Type Severity Reaction Status Date / Time cinnamon Allergy Anaphylaxis Verified 01/10/18 19:38 fish derived Allergy Anaphylaxis Verified 01/10/18 19:38 lactose AdvReac Diarrhea Verified 01/10/18 19:38 Date of admission: 01/08/18 23:48 Primary care physician: Randall Jacob MD Consults: 01/10/18 12:31 Consult to Cardiology [CONS] Routine Comment: Consulting Provider: Cardiology Sugey Reason for Consult: CP Time Notified: 12:32 Call Completed: Yes Discharging clinician: Kimberly Contreras Anticipated date of discharge: 01/11/18 - Constitutional Vitals: Temp Pulse Resp BP Pulse Ox 98.4 F 87 14 118/69 98 01/11/18 14:52 01/11/18 17:44 01/11/18 17:44 01/11/18 17:44 01/11/18 17:44 General appearance: Present: cooperative, A&O X 3, morbidly obese, pleasant, answers questions appropriately - Head Head exam: Present: atraumatic, normocephalic - Eye Eye exam: Present: PERRL, conjuntiva pink, sclera anicteric Pupils: Present: PERRL - Neck Neck exam general surgery: Present: supple, trachea midline. Absent: lymphadenopathy - Respiratory Respiratory exam: Present: CTAB. Absent: accessory muscle use, rales, rhonchi, wheezes - Cardiovascular Cardiovascular exam: Present: RRR, +S1, +S2. Absent: diastolic murmur, gallop, rubs, systolic murmur - GI/Abdominal GI/Abdominal exam: Present: normal bowel sounds, soft, no peritoneal signs. Absent: distended, tenderness - Extremities Exam Extremities exam: Present: warm, radial pulses palpable and symmetrical. Absent : calf tenderness, cyanotic, pedal edema - Neurological Exam Neurological exam: Present: CN II-XII intact, oriented X3, no focal deficits. Absent: pronater drift, facial droop, speech deficit - Skin Skin exam: Present: dry, intact - Patient Status Disposition: Home, Self-Care Condition: Good Functional capacity at discharge: independent ambulation Overall status at discharge: patient is progressing back to baseline - Discharge Instructions Instructions: Chest Pain (DC) Follow Up With: Randall Jacob MD [Primary Care Provider] - - Diet and Activity Activity: increase activity as tolerated Diet: low fat, low cholesterol - VTE Reasons for not Prescribing Prophylaxis: Not indicated-Anticoagulated or INR therapeutic Documentation of Mechanical Device: Graduated compression elastic hosiery
[2018-01-11 18:54] VITALS: BP 116/76
== END 2018-01-11 19:30 | disposition home or self-care (01) ==
LOC: 3BNU 20:18 → EMEROO 20:18 → 3BNU 01-09 00:04
PROVIDERS: ADMIT Internal Medicine; ATTEND Registered Nurse

== ENCOUNTER 2020-08-31 11:26 | Inpatient (IN) ==
[2020-08-31] MEDS ORDERED: Ipratropium/Albuterol Neb 3 ML IH ONE (11:37)
[2020-08-31] MEDS ORDERED: Dexamethasone 4 MG/ML VIAL IVP STA (11:37)
[2020-08-31] MEDS ORDERED: Ipratropium/Albuterol Neb 3 ML ONE (11:39)
[2020-08-31 11:52] LABS: Basophils % 0.2 %; Hematocrit 36.6 % (37.5-50.1); Hemoglobin 10.8 g/dL (12.9-16.9); Immature Granulocytes % 1.7 % (0-4); Lymphocytes # 0.3 K/mcL (0.6-4.6); Lymphocytes % 6.8 %; Mean Corpuscular HGB Conc 29.5 g/dL (31.6-35.5); Mean Corpuscular Hemoglobin 21.9 pg (28.0-33.3); Mean Corpuscular Volume 74.1 fL (83.0-100.0); Mean Platelet Volume 10.1 fL (9.4-12.4); Monocytes # 0.3 K/mcL (0.0-1.3); Monocytes % 6.8 %; Neutrophils # 4.1 K/mcL (1.6-8.9); Platelet Count 167 K/mcL (140-400); Red Blood Count 4.94 M/mcL (4.19-5.50); Red Cell Distribution Width 19.8 % (11.5-14.5); Segmented Neutrophils % 84.5 %; White Blood Count 4.8 K/mcL (4.3-11.1)
[2020-08-31] MEDS ORDERED: cefTRIAXone 1,000 MG in Water for inj. (sterile) 10 ML IVP ONE (11:55)
[2020-08-31 12:13] LABS: Alanine Aminotransferase 17 Units/L (7-52); Albumin 3.4 g/dL (3.5-5.7); Albumin/Globulin Ratio 0.8 (1.1-2.2); Alkaline Phosphatase 116 Units/L (34-104); Aspartate Amino Transferase 40 Units/L (13-39); BUN/Creatinine Ratio 20 (6-26); Bilirubin,Total 0.5 mg/dL (0.3-1.0); Blood Urea Nitrogen 37 mg/dL (6-20); Calcium 8.5 mg/dL (8.6-10.3); Carbon Dioxide 22 mEq/L (23-29); Chloride 104 mEq/L (98-107); Fibrinogen 961 mg/dL (169-393); Globulin 4.2 g/dL (2.4-3.5); Glucose 137 mg/dL (70-105); Osmolality,Calculated 301 (280-300); Potassium 4.1 mEq/L (3.5-5.1); Sodium 140 mEq/L (136-145); Total Protein 7.6 g/dL (6.4-8.9); Troponin I < 0.03 ng/mL (< 0.04); eGFR For African Americans 47 (> 60); eGFR For Non-African Americans 39 (> 60)
[2020-08-31] MEDS ORDERED: 0.9 % Sodium Chloride 1,000 ML IVC ONE (12:22)
[2020-08-31] MEDS ORDERED: Ondansetron 4 MG/2 ML VIAL IVP PRN (12:23)
[2020-08-31] MEDS ORDERED: Naloxone 0.4 MG/ML INJ IVP PRN (12:23)
[2020-08-31] MEDS ORDERED: 0.9 % Sodium Chloride 250 ML IVC SCH (13:15)
[2020-08-31] MEDS ORDERED: Ipratropium/Albuterol Neb 3 ML IH PRN (13:19)
[2020-08-31 13:23] LABS: D-Dimer 1181 ng/mLFEU (0-500)
[2020-08-31] MEDS ORDERED: *HR* Heparin 5,000 UNIT/ML VIAL IVP ONE (13:36)
[2020-08-31] MEDS ORDERED: *HR* Heparin 5,000 UNIT/ML VIAL IVP PRN ×2 (13:36)
[2020-08-31] MEDS: Azithromycin 500 MG in 0.9 % Sodium Chloride 250 ML IVPB SCH (16:06)
[2020-08-31 16:43] LABS: VBG HCO3 26 mEq/L (21-27); VBG PCO2 45 mmHg (41-51); VBG PH 7.37 pH Units (7.32-7.42); VBG PO2 56 mmHg (25-50)
[2020-08-31 16:44] LABS: Hematocrit 36.3 % (37.5-50.1); Hemoglobin 10.7 g/dL (12.9-16.9); Mean Corpuscular HGB Conc 29.5 g/dL (31.6-35.5); Mean Corpuscular Hemoglobin 21.7 pg (28.0-33.3); Mean Corpuscular Volume 73.8 fL (83.0-100.0); Mean Platelet Volume 10.3 fL (9.4-12.4); Platelet Count 164 K/mcL (140-400); Red Blood Count 4.92 M/mcL (4.19-5.50); Red Cell Distribution Width 19.8 % (11.5-14.5); White Blood Count 4.9 K/mcL (4.3-11.1)
[2020-08-31 16:48] LABS: Heparin anti-factor XA UFH < 0.04 IU/mL (0.30-0.70)
[2020-08-31 16:49] LABS: INR 1.2; Prothrombin Time 13.9 Seconds (9.4-12.1)
[2020-08-31 16:50] LABS: Activated Partial Thrombo Time 29.1 Seconds (26.0-36.0)
[2020-08-31] MEDS ORDERED: Remdesivir 200 MG in 0.9 % Sodium Chloride 210 ML IVPB ONE ×2 (17:00→21:00)
[2020-08-31 17:06] LABS: D-Dimer 1188 ng/mLFEU (0-500)
[2020-08-31 17:07] LABS: Fibrinogen 922 mg/dL (169-393)
[2020-08-31] MEDS: Heparin 25,000UNIT/250ML 1/2NS 25,000 UNIT/250 ML IV.SOLN IVC SCH (18:10)
[2020-08-31] MEDS: Gabapentin 400 MG CAPSULE PO SCH (21:44)
[2020-08-31] MEDS: Acetaminophen 325 MG TABLET PO PRN (21:44)
[2020-08-31] MEDS ORDERED: 0.9 % Sodium Chloride 250 ML ONE (23:54)
[2020-09-01] MEDS: Azithromycin 500 MG in 0.9 % Sodium Chloride 250 ML IVPB SCH ×2 (01:04→14:44)
[2020-09-01 01:05] LABS: Basophils % 0.3 %; Hemoglobin 9.3 g/dL (12.9-16.9); Lymphocytes # 0.5 K/mcL (0.6-4.6); Mean Corpuscular HGB Conc 29.1 g/dL (31.6-35.5); Mean Corpuscular Hemoglobin 21.4 pg (28.0-33.3); Mean Corpuscular Volume 73.7 fL (83.0-100.0); Mean Platelet Volume 9.8 fL (9.4-12.4); Monocytes # 0.3 K/mcL (0.0-1.3); Platelet Count 158 K/mcL (140-400); Red Blood Count 4.34 M/mcL (4.19-5.50); Red Cell Distribution Width 19.4 % (11.5-14.5); Segmented Neutrophils % 75.7 %; White Blood Count 3.5 K/mcL (4.3-11.1)
[2020-09-01 01:07] LABS: VBG HCO3 26 mEq/L (21-27); VBG PCO2 43 mmHg (41-51); VBG PH 7.39 pH Units (7.32-7.42); VBG PO2 109 mmHg (25-50)
[2020-09-01 01:13] LABS: INR 1.3; Prothrombin Time 14.8 Seconds (9.4-12.1)
[2020-09-01 01:26] LABS: Neutrophils # 2.7 K/mcL (1.6-8.9)
[2020-09-01 01:27] LABS: Albumin 3.2 g/dL (3.5-5.7); Albumin/Globulin Ratio 0.8 (1.1-2.2); Bilirubin,Total 0.3 mg/dL (0.3-1.0); Calcium 8.5 mg/dL (8.6-10.3); Globulin 3.8 g/dL (2.4-3.5); Potassium 4.3 mEq/L (3.5-5.1)
[2020-09-01 01:41] LABS: D-Dimer 996 ng/mLFEU (0-500)
[2020-09-01 01:43] LABS: Fibrinogen 886 mg/dL (169-393)
[2020-09-01 03:07] LABS: Platelet Estimate Normal (Normal)
[2020-09-01] MEDS: Heparin 25,000UNIT/250ML 1/2NS 25,000 UNIT/250 ML IV.SOLN IVC SCH ×2 (03:48→23:22)
[2020-09-01 04:04] LABS: Hepatitis B Surface Antigen Nonreactive (Nonreactive)
[2020-09-01 04:23] LABS: Hepatitis C Virus Antibody Nonreactive (Nonreactive)
[2020-09-01] MEDS ORDERED: Dexamethasone 4 MG/ML VIAL IVP SCH (09:00)
[2020-09-01] MEDS ORDERED: Furosemide 20 MG/2 ML VIAL IVP ONE (09:04)
[2020-09-01] MEDS: Gabapentin 400 MG CAPSULE PO SCH ×3 (09:08→21:20)
[2020-09-01] MEDS: cefTRIAXone 1,000 MG in 0.9 % Sodium Chloride Mini Bag 100 ML IVPB SCH (09:08)
[2020-09-01] MEDS ORDERED: Ipratropium 1 PUFF INHALER IH PRN ×2 (14:02→15:23)
[2020-09-01 14:53] LABS: Calcium 8.8 mg/dL (8.6-10.3); Potassium 3.9 mEq/L (3.5-5.1)
[2020-09-01] MEDS ORDERED: Ipratropium 1 PUFF INHALER IH SCH (16:00)
[2020-09-01] MEDS: Sucralfate 1 GM TABLET PO SCH (21:20)
[2020-09-01] MEDS: Dexamethasone 4 MG/ML VIAL IVP SCH (21:21)
[2020-09-01] MEDS: Remdesivir 100 MG in 0.9 % Sodium Chloride 230 ML IVPB SCH (21:21)
[2020-09-02 04:48] LABS: Hematocrit 31.3 % (37.5-50.1); Hemoglobin 9.2 g/dL (12.9-16.9); Mean Corpuscular HGB Conc 29.4 g/dL (31.6-35.5); Mean Corpuscular Hemoglobin 21.6 pg (28.0-33.3); Mean Corpuscular Volume 73.6 fL (83.0-100.0); Mean Platelet Volume 10.2 fL (9.4-12.4); Platelet Count 184 K/mcL (140-400); Red Blood Count 4.25 M/mcL (4.19-5.50); Red Cell Distribution Width 19.3 % (11.5-14.5); White Blood Count 4.6 K/mcL (4.3-11.1)
[2020-09-02 04:55] LABS: INR 1.1
[2020-09-02 05:07] LABS: Albumin 3.1 g/dL (3.5-5.7); Albumin/Globulin Ratio 0.9 (1.1-2.2); Bilirubin,Total 0.3 mg/dL (0.3-1.0); Calcium 8.9 mg/dL (8.6-10.3); Globulin 3.6 g/dL (2.4-3.5); Potassium 4.2 mEq/L (3.5-5.1); Total Protein 6.7 g/dL (6.4-8.9)
[2020-09-02 05:09] LABS: Lactate Dehydrogenase 338 Units/L (140-271)
[2020-09-02 05:16] LABS: Fibrinogen 766 mg/dL (169-393)
[2020-09-02 05:18] LABS: D-Dimer 13319 ng/mLFEU (0-500)
[2020-09-02 05:26] LABS: Ferritin 125 ng/mL (20-250)
[2020-09-02] MEDS ORDERED: *HR* Enoxaparin 40 MG/0.4 ML SYRINGE SQ SCH (06:00)
[2020-09-02] MEDS ORDERED: Enoxaparin Weight Dosing SQ SCH (08:00)
[2020-09-02] MEDS ORDERED: *HR* Enoxaparin 80 MG/0.8 ML SYRINGE SQ ONE (08:45)
[2020-09-02] MEDS: cefTRIAXone 1,000 MG in 0.9 % Sodium Chloride Mini Bag 100 ML IVPB SCH (08:52)
[2020-09-02] MEDS: Dexamethasone 4 MG/ML VIAL IVP SCH ×2 (08:53→21:33)
[2020-09-02] MEDS: Gabapentin 400 MG CAPSULE PO SCH ×2 (08:53→21:32)
[2020-09-02] MEDS: Sucralfate 1 GM TABLET PO SCH ×2 (08:53→21:32)
[2020-09-02] MEDS: Aspirin Enteric Coated 81 MG Tablet PO SCH (08:53)
[2020-09-02] MEDS: Furosemide 20 MG/2 ML VIAL IVP SCH (08:54)
[2020-09-02] MEDS ORDERED: 0.9 % Sodium Chloride 250 ML ONE (13:19)
[2020-09-02] MEDS: *HR* HYDROcodone/Acet 5/325 mg TABLET PO PRN (16:08)
[2020-09-02] MEDS: Acetaminophen 325 MG TABLET PO PRN (16:08)
[2020-09-02] MEDS: *HR* Enoxaparin 120 MG/0.8 ML SYRINGE SQ SCH (17:42)
[2020-09-02] MEDS: Azithromycin 500 MG in 0.9 % Sodium Chloride 250 ML IVPB SCH ×2 (19:33→19:41)
[2020-09-02] MEDS: Remdesivir 100 MG in 0.9 % Sodium Chloride 230 ML IVPB SCH (22:10)
[2020-09-03 05:20] LABS: Hemoglobin 9.3 g/dL (12.9-16.9); Mean Platelet Volume 10.6 fL (9.4-12.4)
[2020-09-03 05:21] LABS: Hematocrit 31.8 % (37.5-50.1); Mean Corpuscular HGB Conc 29.2 g/dL (31.6-35.5); Mean Corpuscular Hemoglobin 21.7 pg (28.0-33.3); Mean Corpuscular Volume 74.3 fL (83.0-100.0); Platelet Count 200 K/mcL (140-400); Red Blood Count 4.28 M/mcL (4.19-5.50); Red Cell Distribution Width 19.1 % (11.5-14.5); White Blood Count 7.7 K/mcL (4.3-11.1)
[2020-09-03 05:23] LABS: Basophils % 0.1 %; Hematocrit 32.2 % (37.5-50.1); Hemoglobin 9.4 g/dL (12.9-16.9); Immature Granulocytes % 2.1 % (0-4); Immature Platelets 4.6 % (1.1-6.1); Lymphocytes # 0.7 K/mcL (0.6-4.6); Lymphocytes % 8.8 %; Mean Corpuscular HGB Conc 29.2 g/dL (31.6-35.5); Mean Corpuscular Hemoglobin 21.7 pg (28.0-33.3); Mean Corpuscular Volume 74.4 fL (83.0-100.0); Mean Platelet Volume 10.2 fL (9.4-12.4); Monocytes # 0.5 K/mcL (0.0-1.3); Monocytes % 6.1 %; Neutrophils # 6.3 K/mcL (1.6-8.9); Platelet Count 214 K/mcL (140-400); Red Blood Count 4.33 M/mcL (4.19-5.50); Red Cell Distribution Width 19.2 % (11.5-14.5); Segmented Neutrophils % 82.9 %; White Blood Count 7.6 K/mcL (4.3-11.1)
[2020-09-03 05:26] LABS: INR 1.2; Prothrombin Time 14.3 Seconds (9.4-12.1)
[2020-09-03 05:42] LABS: Albumin 3.1 g/dL (3.5-5.7); Albumin/Globulin Ratio 0.9 (1.1-2.2); Bilirubin,Total 0.3 mg/dL (0.3-1.0); Calcium 8.6 mg/dL (8.6-10.3); Globulin 3.4 g/dL (2.4-3.5); Magnesium 2.4 mg/dL (1.6-2.6); Phosphorous 4.8 mg/dL (2.7-4.5); Potassium 4.2 mEq/L (3.5-5.1); Total Protein 6.5 g/dL (6.4-8.9)
[2020-09-03] MEDS: *HR* Enoxaparin 120 MG/0.8 ML SYRINGE SQ SCH ×2 (05:43→17:26)
[2020-09-03] MEDS: Gabapentin 400 MG CAPSULE PO SCH ×2 (09:24→21:08)
[2020-09-03] MEDS: Furosemide 20 MG/2 ML VIAL IVP SCH (09:24)
[2020-09-03] MEDS: Dexamethasone 4 MG/ML VIAL IVP SCH ×2 (09:24→21:06)
[2020-09-03] MEDS: cefTRIAXone 1,000 MG in 0.9 % Sodium Chloride Mini Bag 100 ML IVPB SCH (09:25)
[2020-09-03] MEDS: Aspirin Enteric Coated 81 MG Tablet PO SCH (09:25)
[2020-09-03] MEDS: Sucralfate 1 GM TABLET PO SCH ×2 (09:25→21:08)
[2020-09-03] MEDS ORDERED: Furosemide 40 MG/4 ML VIAL IVP ONE (17:47)
[2020-09-03] MEDS: Azithromycin 500 MG in 0.9 % Sodium Chloride 250 ML IVPB SCH (21:07)
[2020-09-03] MEDS: Remdesivir 100 MG in 0.9 % Sodium Chloride 230 ML IVPB SCH (21:17)
[2020-09-03] MEDS: *HR* HYDROcodone/Acet 5/325 mg TABLET PO PRN (21:43)
[2020-09-04] MEDS: *HR* Enoxaparin 120 MG/0.8 ML SYRINGE SQ SCH (06:02)
[2020-09-04 07:24] LABS: INR 1.3; Prothrombin Time 14.4 Seconds (9.4-12.1)
[2020-09-04 07:27] LABS: Hematocrit 35.3 % (37.5-50.1); Hemoglobin 10.3 g/dL (12.9-16.9); Mean Corpuscular HGB Conc 29.2 g/dL (31.6-35.5); Mean Corpuscular Hemoglobin 21.6 pg (28.0-33.3); Mean Corpuscular Volume 74.2 fL (83.0-100.0); Mean Platelet Volume 10.6 fL (9.4-12.4); Platelet Count 211 K/mcL (140-400); Red Blood Count 4.76 M/mcL (4.19-5.50); Red Cell Distribution Width 18.8 % (11.5-14.5); White Blood Count 6.6 K/mcL (4.3-11.1)
[2020-09-04 07:33] LABS: Alanine Aminotransferase 12 Units/L (7-52); Albumin 3.1 g/dL (3.5-5.7); Albumin/Globulin Ratio 0.9 (1.1-2.2); Alkaline Phosphatase 90 Units/L (34-104); Aspartate Amino Transferase 16 Units/L (13-39); BUN/Creatinine Ratio 36 (6-26); Bilirubin,Total 0.3 mg/dL (0.3-1.0); Blood Urea Nitrogen 51 mg/dL (6-20); Calcium 8.6 mg/dL (8.6-10.3); Carbon Dioxide 25 mEq/L (23-29); Chloride 109 mEq/L (98-107); Globulin 3.6 g/dL (2.4-3.5); Glucose 128 mg/dL (70-105); Osmolality,Calculated 309 (280-300); Potassium 4.2 mEq/L (3.5-5.1); Sodium 142 mEq/L (136-145); Total Protein 6.7 g/dL (6.4-8.9); eGFR For African Americans > 60 (> 60); eGFR For Non-African Americans 54 (> 60)
[2020-09-04] MEDS: Aspirin Enteric Coated 81 MG Tablet PO SCH (08:22)
[2020-09-04] MEDS: Sucralfate 1 GM TABLET PO SCH ×2 (08:22→19:35)
[2020-09-04] MEDS: Dexamethasone 4 MG/ML VIAL IVP SCH ×2 (08:23→19:39)
[2020-09-04] MEDS: Gabapentin 400 MG CAPSULE PO SCH ×2 (08:23→19:35)
[2020-09-04] MEDS: Furosemide 20 MG/2 ML VIAL IVP SCH (08:24)
[2020-09-04] MEDS: cefTRIAXone 1,000 MG in 0.9 % Sodium Chloride Mini Bag 100 ML IVPB SCH (08:25)
[2020-09-04] MEDS ORDERED: Furosemide 20 MG/2 ML VIAL IVP ONE (09:03)
[2020-09-04] MEDS: Furosemide 40 MG/4 ML VIAL IVP SCH (09:04)
[2020-09-04] MEDS: Acetaminophen 325 MG TABLET PO PRN (19:38)
[2020-09-04] MEDS: Azithromycin 500 MG in 0.9 % Sodium Chloride 250 ML IVPB SCH (19:39)
[2020-09-04] MEDS: Remdesivir 100 MG in 0.9 % Sodium Chloride 230 ML IVPB SCH (21:38)
[2020-09-05] MEDS: *HR* Enoxaparin 40 MG/0.4 ML SYRINGE SQ SCH (05:32)
[2020-09-05 06:33] LABS: Hematocrit 36.5 % (37.5-50.1); Hemoglobin 10.5 g/dL (12.9-16.9); Immature Platelets 6.1 % (1.1-6.1); Mean Corpuscular HGB Conc 28.8 g/dL (31.6-35.5); Mean Corpuscular Volume 72.9 fL (83.0-100.0); Mean Platelet Volume 10.7 fL (9.4-12.4); Red Blood Count 5.01 M/mcL (4.19-5.50); White Blood Count 8.1 K/mcL (4.3-11.1)
[2020-09-05 06:40] LABS: BUN/Creatinine Ratio 36 (6-26); Blood Urea Nitrogen 45 mg/dL (6-20); Calcium 8.3 mg/dL (8.6-10.3); Carbon Dioxide 24 mEq/L (23-29); Chloride 107 mEq/L (98-107); Glucose 135 mg/dL (70-105); Osmolality,Calculated 300 (280-300); Potassium 3.9 mEq/L (3.5-5.1); Sodium 138 mEq/L (136-145); eGFR For African Americans > 60 (> 60); eGFR For Non-African Americans > 60 (> 60)
[2020-09-05] MEDS: Furosemide 40 MG/4 ML VIAL IVP SCH (09:53)
[2020-09-05] MEDS: Dexamethasone 4 MG/ML VIAL IVP SCH (09:53)
[2020-09-05] MEDS: cefTRIAXone 1,000 MG in 0.9 % Sodium Chloride Mini Bag 100 ML IVPB SCH (09:54)
[2020-09-05] MEDS: Aspirin Enteric Coated 81 MG Tablet PO SCH (09:54)
[2020-09-05] MEDS: Gabapentin 400 MG CAPSULE PO SCH ×2 (09:54→21:01)
[2020-09-05] MEDS: Sucralfate 1 GM TABLET PO SCH ×2 (09:54→21:00)
[2020-09-05] MEDS: Fluticasone Propionate Nasal 50 MCG/SPRAY BOTTLE NS SCH ×2 (18:20→21:01)
[2020-09-06 01:49] LABS: BUN/Creatinine Ratio 35 (6-26); Blood Urea Nitrogen 39 mg/dL (6-20); Calcium 8.2 mg/dL (8.6-10.3); Carbon Dioxide 24 mEq/L (23-29); Chloride 107 mEq/L (98-107); Glucose 110 mg/dL (70-105); Osmolality,Calculated 298 (280-300); Potassium 3.9 mEq/L (3.5-5.1); Sodium 139 mEq/L (136-145); eGFR For African Americans > 60 (> 60); eGFR For Non-African Americans > 60 (> 60)
[2020-09-06] MEDS: *HR* Enoxaparin 40 MG/0.4 ML SYRINGE SQ SCH (06:25)
[2020-09-06] MEDS: Aspirin Enteric Coated 81 MG Tablet PO SCH (08:40)
[2020-09-06] MEDS: *HR* HYDROcodone/Acet 5/325 mg TABLET PO PRN ×3 (08:40→22:12)
[2020-09-06] MEDS: Dexamethasone 4 MG/ML VIAL IVP SCH (08:40)
[2020-09-06] MEDS: Gabapentin 400 MG CAPSULE PO SCH ×2 (08:40→19:35)
[2020-09-06] MEDS: Sucralfate 1 GM TABLET PO SCH ×2 (08:40→19:35)
[2020-09-06] MEDS: Furosemide 40 MG/4 ML VIAL IVP SCH (08:41)
[2020-09-06] MEDS: Fluticasone Propionate Nasal 50 MCG/SPRAY BOTTLE NS SCH ×2 (08:41→19:35)
[2020-09-06] MEDS: cefTRIAXone 1,000 MG in 0.9 % Sodium Chloride Mini Bag 100 ML IVPB SCH (08:41)
[2020-09-07] MEDS: *HR* Enoxaparin 40 MG/0.4 ML SYRINGE SQ SCH (04:54)
[2020-09-07] MEDS: Sucralfate 1 GM TABLET PO SCH ×2 (08:30→19:53)
[2020-09-07] MEDS: Gabapentin 400 MG CAPSULE PO SCH ×2 (08:30→19:54)
[2020-09-07] MEDS: Aspirin Enteric Coated 81 MG Tablet PO SCH (08:30)
[2020-09-07] MEDS: Furosemide 40 MG/4 ML VIAL IVP SCH ×2 (08:31→19:54)
[2020-09-07] MEDS: Dexamethasone 4 MG/ML VIAL IVP SCH (08:31)
[2020-09-07] MEDS: Fluticasone Propionate Nasal 50 MCG/SPRAY BOTTLE NS SCH ×2 (08:31→19:55)
[2020-09-07] MEDS: cefTRIAXone 1,000 MG in 0.9 % Sodium Chloride Mini Bag 100 ML IVPB SCH (08:31)
[2020-09-07 09:30] LABS: BUN/Creatinine Ratio 29 (6-26); Blood Urea Nitrogen 30 mg/dL (6-20); Calcium 8.7 mg/dL (8.6-10.3); Carbon Dioxide 25 mEq/L (23-29); Chloride 106 mEq/L (98-107); Glucose 110 mg/dL (70-105); Osmolality,Calculated 295 (280-300); Potassium 4.1 mEq/L (3.5-5.1); Sodium 139 mEq/L (136-145); eGFR For African Americans > 60 (> 60); eGFR For Non-African Americans > 60 (> 60)
[2020-09-07] MEDS: *HR* HYDROcodone/Acet 5/325 mg TABLET PO PRN ×2 (15:49→21:59)
[2020-09-08] MEDS: *HR* Enoxaparin 40 MG/0.4 ML SYRINGE SQ SCH (05:08)
[2020-09-08 06:25] LABS: Basophils % 0.2 %; Eosinophils # 0.1 K/mcL (0.0-0.6); Eosinophils % 0.6 %; Hematocrit 36.8 % (37.5-50.1); Hemoglobin 10.7 g/dL (12.9-16.9); Immature Granulocytes % 1.5 % (0-4); Lymphocytes # 0.6 K/mcL (0.6-4.6); Lymphocytes % 4.4 %; Mean Corpuscular HGB Conc 29.1 g/dL (31.6-35.5); Mean Corpuscular Hemoglobin 21.7 pg (28.0-33.3); Mean Corpuscular Volume 74.6 fL (83.0-100.0); Monocytes # 0.8 K/mcL (0.0-1.3); Monocytes % 6.5 %; Neutrophils # 10.8 K/mcL (1.6-8.9); Platelet Count 343 K/mcL (140-400); Red Blood Count 4.93 M/mcL (4.19-5.50); Red Cell Distribution Width 19.2 % (11.5-14.5); Segmented Neutrophils % 86.8 %; White Blood Count 12.4 K/mcL (4.3-11.1)
[2020-09-08 07:04] LABS: BUN/Creatinine Ratio 32 (6-26); Blood Urea Nitrogen 36 mg/dL (6-20); Calcium 8.4 mg/dL (8.6-10.3); Carbon Dioxide 24 mEq/L (23-29); Chloride 103 mEq/L (98-107); Glucose 120 mg/dL (70-105); Osmolality,Calculated 292 (280-300); Potassium 3.8 mEq/L (3.5-5.1); Sodium 136 mEq/L (136-145); eGFR For African Americans > 60 (> 60); eGFR For Non-African Americans > 60 (> 60)
[2020-09-08] MEDS: Gabapentin 400 MG CAPSULE PO SCH ×2 (08:49→20:05)
[2020-09-08] MEDS: Aspirin Enteric Coated 81 MG Tablet PO SCH (08:51)
[2020-09-08] MEDS: Sucralfate 1 GM TABLET PO SCH ×2 (08:51→20:05)
[2020-09-08] MEDS: Furosemide 40 MG/4 ML VIAL IVP SCH (08:51)
[2020-09-08] MEDS: Dexamethasone 4 MG/ML VIAL IVP SCH (08:52)
[2020-09-08] MEDS: cefTRIAXone 1,000 MG in 0.9 % Sodium Chloride Mini Bag 100 ML IVPB SCH (08:54)
[2020-09-08] MEDS: *HR* HYDROcodone/Acet 5/325 mg TABLET PO PRN ×2 (09:18→22:03)
[2020-09-08] MEDS: Fluticasone Propionate Nasal 50 MCG/SPRAY BOTTLE NS SCH ×2 (15:28→20:00)
[2020-09-08] MEDS: Piperacillin/Tazobactam 3.375 GM in 0.9 % Sodium Chloride Mini Bag 100 ML IVPB SCH ×2 (16:19→23:09)
[2020-09-08] MEDS ORDERED: *HR* Metoprolol 5 MG/5 ML VIAL IVP ONE (17:46)
[2020-09-08] MEDS: Acetaminophen 325 MG TABLET PO PRN (23:43)
[2020-09-09] MEDS: *HR* Enoxaparin 40 MG/0.4 ML SYRINGE SQ SCH (05:18)
[2020-09-09] MEDS ORDERED: Benzonatate 100 MG CAPSULE PO PRN (05:52)
[2020-09-09] MEDS: Aspirin Enteric Coated 81 MG Tablet PO SCH (08:55)
[2020-09-09] MEDS: Sucralfate 1 GM TABLET PO SCH ×2 (08:56→20:18)
[2020-09-09] MEDS: Dexamethasone 4 MG/ML VIAL IVP SCH (08:56)
[2020-09-09] MEDS: Piperacillin/Tazobactam 3.375 GM in 0.9 % Sodium Chloride Mini Bag 100 ML IVPB SCH ×3 (08:57→23:17)
[2020-09-09] MEDS: Gabapentin 400 MG CAPSULE PO SCH (08:59)
[2020-09-09] MEDS: Fluticasone Propionate Nasal 50 MCG/SPRAY BOTTLE NS SCH ×2 (09:01→20:29)
[2020-09-09] MEDS: *HR* Metoprolol 5 MG/5 ML VIAL IVP PRN (09:23)
[2020-09-09 10:50] LABS: BUN/Creatinine Ratio 31 (6-26); Blood Urea Nitrogen 32 mg/dL (6-20); Calcium 8.6 mg/dL (8.6-10.3); Carbon Dioxide 24 mEq/L (23-29); Chloride 102 mEq/L (98-107); Glucose 158 mg/dL (70-105); Osmolality,Calculated 290 (280-300); Potassium 3.4 mEq/L (3.5-5.1); Sodium 135 mEq/L (136-145); eGFR For African Americans > 60 (> 60); eGFR For Non-African Americans > 60 (> 60)
[2020-09-09] MEDS: Furosemide 40 MG/4 ML VIAL IVP SCH (11:21)
[2020-09-09] MEDS: Acetaminophen 325 MG TABLET PO PRN (11:36)
[2020-09-09 11:40] LABS: ABG Base Excess 2 mEq/L (-2 to 3); ABG HCO3 26 mEq/L (21-27); ABG Oxygen Saturation 94 % (95-98); ABG PCO2 37 mmHg (35-45); ABG PH 7.46 pH Units (7.32-7.45); ABG PO2 66 mmHg (85-104); ABG TCO2 27 mEq/L (20-26)
[2020-09-09] MEDS ORDERED: Vancomycin 2,000 MG/520 ML IV.SOLN IVPB SCH (12:00)
[2020-09-09 14:35] LABS: Basophils % 0.1 %; Eosinophils % 0.1 %; Hematocrit 35.2 % (37.5-50.1); Hemoglobin 10.4 g/dL (12.9-16.9); Immature Granulocytes % 1.2 % (0-4); Lymphocytes # 0.3 K/mcL (0.6-4.6); Lymphocytes % 1.8 %; Mean Corpuscular HGB Conc 29.5 g/dL (31.6-35.5); Mean Corpuscular Hemoglobin 21.6 pg (28.0-33.3); Mean Corpuscular Volume 73.2 fL (83.0-100.0); Mean Platelet Volume 10.6 fL (9.4-12.4); Monocytes # 0.6 K/mcL (0.0-1.3); Monocytes % 4.3 %; Neutrophils # 12.9 K/mcL (1.6-8.9); Platelet Count 413 K/mcL (140-400); Red Blood Count 4.81 M/mcL (4.19-5.50); Red Cell Distribution Width 18.8 % (11.5-14.5); Segmented Neutrophils % 92.5 %; White Blood Count 13.9 K/mcL (4.3-11.1)
[2020-09-09 14:54] LABS: BUN/Creatinine Ratio 23 (6-26); Blood Urea Nitrogen 35 mg/dL (6-20); Calcium 8.2 mg/dL (8.6-10.3); Carbon Dioxide 22 mEq/L (23-29); Chloride 102 mEq/L (98-107); Glucose 264 mg/dL (70-105); Osmolality,Calculated 295 (280-300); Sodium 134 mEq/L (136-145); eGFR For African Americans 59 (> 60); eGFR For Non-African Americans 48 (> 60)
[2020-09-09 14:55] LABS: Troponin I < 0.03 ng/mL (< 0.04)
[2020-09-09 15:08] LABS: Fibrinogen 922 mg/dL (169-393)
[2020-09-09 15:31] LABS: D-Dimer 2009 ng/mLFEU (0-500)
[2020-09-09] MEDS: Ipratropium 1 PUFF INHALER IH SCH ×2 (16:18→20:11)
[2020-09-09] MEDS: Gabapentin 100 MG CAPSULE PO SCH (20:18)
[2020-09-09] MEDS ORDERED: Furosemide 20 MG/2 ML VIAL IVP SCH (21:00)
[2020-09-09] MEDS: *HR* HYDROcodone/Acet 5/325 mg TABLET PO PRN (23:17)
[2020-09-10] MEDS: Ipratropium 1 PUFF INHALER IH SCH ×7 (00:05→23:47)
[2020-09-10] MEDS: *HR* Metoprolol 5 MG/5 ML VIAL IVP PRN ×2 (03:33→12:25)
[2020-09-10] MEDS: Acetaminophen 325 MG TABLET PO PRN ×2 (04:42→12:24)
[2020-09-10] MEDS: *HR* Enoxaparin 40 MG/0.4 ML SYRINGE SQ SCH (05:22)
[2020-09-10 05:59] LABS: BUN/Creatinine Ratio 26 (6-26); Blood Urea Nitrogen 30 mg/dL (6-20); Calcium 8.4 mg/dL (8.6-10.3); Carbon Dioxide 24 mEq/L (23-29); Chloride 104 mEq/L (98-107); Glucose 110 mg/dL (70-105); Osmolality,Calculated 295 (280-300); Potassium 4.1 mEq/L (3.5-5.1); Sodium 139 mEq/L (136-145); eGFR For African Americans > 60 (> 60); eGFR For Non-African Americans > 60 (> 60)
[2020-09-10] MEDS: Sucralfate 1 GM TABLET PO SCH ×2 (08:44→20:02)
[2020-09-10] MEDS: Gabapentin 100 MG CAPSULE PO SCH ×2 (08:44→20:02)
[2020-09-10] MEDS: Aspirin Enteric Coated 81 MG Tablet PO SCH (08:45)
[2020-09-10] MEDS: Piperacillin/Tazobactam 3.375 GM in 0.9 % Sodium Chloride Mini Bag 100 ML IVPB SCH ×3 (08:46→23:08)
[2020-09-10] MEDS: Dexamethasone 4 MG/ML VIAL IVP SCH (08:46)
[2020-09-10] MEDS: Morphine Sulfate Oral CONC 10 MG/0.5 ML ORAL.SYG SL PRN ×2 (10:51→16:07)
[2020-09-10] MEDS ORDERED: Vancomycin 1,500 MG/265 ML IV.SOLN IVPB SCH (12:00)
[2020-09-10] MEDS: Doxycycline 100 MG CAPSULE PO SCH (16:07)
[2020-09-10] MEDS: Fluticasone Propionate Nasal 50 MCG/SPRAY BOTTLE NS SCH (16:21)
[2020-09-10] MEDS: Furosemide 20 MG/2 ML VIAL IVP SCH (20:02)
[2020-09-10] MEDS: *HR* LORazepam Oral Conc 2 MG/ML SL PRN (23:08)
[2020-09-11] MEDS: Fluticasone Propionate Nasal 50 MCG/SPRAY BOTTLE NS SCH ×3 (00:28→20:00)
[2020-09-11] MEDS: Ipratropium 1 PUFF INHALER IH SCH ×6 (03:50→23:50)
[2020-09-11 04:05] LABS: Hematocrit 36.9 % (37.5-50.1); Hemoglobin 10.7 g/dL (12.9-16.9); Mean Corpuscular Hemoglobin 21.5 pg (28.0-33.3); Mean Corpuscular Volume 74.2 fL (83.0-100.0); Mean Platelet Volume 10.3 fL (9.4-12.4); Platelet Count 409 K/mcL (140-400); Red Blood Count 4.97 M/mcL (4.19-5.50); Red Cell Distribution Width 19.2 % (11.5-14.5)
[2020-09-11 04:11] LABS: INR 1.5; Prothrombin Time 17.6 Seconds (9.4-12.1)
[2020-09-11 04:46] LABS: BUN/Creatinine Ratio 26 (6-26); Blood Urea Nitrogen 26 mg/dL (6-20); C-Reactive Protein > 300 mg/L (Less than 10); Calcium 8.5 mg/dL (8.6-10.3); Carbon Dioxide 26 mEq/L (23-29); Chloride 101 mEq/L (98-107); Ferritin 181 ng/mL (20-250); Glucose 125 mg/dL (70-105); Lactate Dehydrogenase 373 Units/L (140-271); Magnesium 2.3 mg/dL (1.6-2.6); Osmolality,Calculated 288 (280-300); Potassium 3.9 mEq/L (3.5-5.1); Sodium 136 mEq/L (136-145); eGFR For African Americans > 60 (> 60); eGFR For Non-African Americans > 60 (> 60)
[2020-09-11] MEDS: Doxycycline 100 MG CAPSULE PO SCH (05:22)
[2020-09-11] MEDS: *HR* Enoxaparin 40 MG/0.4 ML SYRINGE SQ SCH (05:22)
[2020-09-11] MEDS: *HR* Metoprolol 5 MG/5 ML VIAL IVP PRN (05:22)
[2020-09-11] MEDS: *HR* LORazepam Oral Conc 2 MG/ML SL PRN (05:22)
[2020-09-11] MEDS: Dexamethasone 4 MG/ML VIAL IVP SCH (07:56)
[2020-09-11] MEDS: Furosemide 20 MG/2 ML VIAL IVP SCH ×2 (07:57→20:42)
[2020-09-11] MEDS: Piperacillin/Tazobactam 3.375 GM in 0.9 % Sodium Chloride Mini Bag 100 ML IVPB SCH ×3 (07:57→23:36)
[2020-09-11] MEDS: Morphine Sulfate Oral CONC 10 MG/0.5 ML ORAL.SYG SL PRN (07:58)
[2020-09-11] MEDS ORDERED: 0.9 % Sodium Chloride 1,000 ML ONE (08:29)
[2020-09-11] MEDS ORDERED: Norepinephrine 4 MG/254 ML IV.SOLN IVC SCH (08:30)
[2020-09-11] MEDS ORDERED: *HR* Succinylcholine 200 MG/10 ML VIAL IVP ONE (08:37)
[2020-09-11] MEDS ORDERED: *HR* Rocuronium Bromide 50 MG/5 ML VIAL IVP ONE ×3 (08:44→12:23)
[2020-09-11] MEDS ORDERED: *HR* Midazolam HCl 5 MG/5 ML VIAL IVP ONE ×3 (08:57→12:23)
[2020-09-11] MEDS ORDERED: *HR* FentaNYL (PF) 100 MCG/2 ML VIAL IVP ONE (09:03)
[2020-09-11] MEDS ORDERED: 0.9 % Sodium Chloride 500 ML ONE (09:16)
[2020-09-11] MEDS: Cisatracurium 200 MG in 0.9 % Sodium Chloride 180 ML IVC SCH ×2 (09:30→16:21)
[2020-09-11] MEDS: Midazolam HCl 50 MG/100 ML IV.SOLN IVC SCH ×3 (09:34→22:38)
[2020-09-11] MEDS: FentaNYL (PF) 1,000 MCG/100 ML IV.SOLN IVC SCH ×3 (09:40→22:38)
[2020-09-11 10:08] LABS: ABG Base Excess -1 mEq/L (-2 to 3); ABG HCO3 28 mEq/L (21-27); ABG Oxygen Saturation 86 % (95-98); ABG PCO2 66 mmHg (35-45); ABG PH 7.23 pH Units (7.32-7.45); ABG PO2 62 mmHg (85-104); ABG TCO2 30 mEq/L (20-26); Blood Gas VT 500 cc
[2020-09-11] MEDS ORDERED: Artificial Tears SOLN 15 ML BOTTLE BOTH EYES PRN (10:16)
[2020-09-11] MEDS ORDERED: Dexamethasone 4 MG/ML VIAL IVP ONE (12:00)
[2020-09-11 12:05] LABS: ABG Base Excess -2 mEq/L (-2 to 3); ABG HCO3 27 mEq/L (21-27); ABG Oxygen Saturation 86 % (95-98); ABG PCO2 67 mmHg (35-45); ABG PH 7.22 pH Units (7.32-7.45); ABG PO2 63 mmHg (85-104); ABG TCO2 29 mEq/L (20-26); Blood Gas VT 500 cc
[2020-09-11] MEDS: Aspirin Enteric Coated 81 MG Tablet PO SCH (12:46)
[2020-09-11] MEDS: Gabapentin 100 MG CAPSULE PO SCH ×2 (12:46→20:43)
[2020-09-11] MEDS: Sucralfate 1 GM TABLET PO SCH ×2 (12:46→20:43)
[2020-09-11] MEDS: Pantoprazole 40 MG VIAL IVP SCH (13:44)
[2020-09-11] MEDS: Artificial Tears SOLN 15 ML BOTTLE BOTH EYES SCH ×4 (16:19→23:34)
[2020-09-11 20:11] LABS: ABG Base Excess 1 mEq/L (-2 to 3); ABG HCO3 30 mEq/L (21-27); ABG Oxygen Saturation 94 % (95-98); ABG PCO2 65 mmHg (35-45); ABG PH 7.27 pH Units (7.32-7.45); ABG PO2 81 mmHg (85-104); ABG TCO2 32 mEq/L (20-26); Blood Gas VT 500 cc
[2020-09-11] MEDS: Doxycycline 100 MG in 0.9 % Sodium Chloride Mini Bag 100 ML IVPB SCH (20:41)
[2020-09-11] MEDS: Chlorhexidine Rinse 15 ML MOUTHWASH MM SCH (20:41)
[2020-09-11 22:33] LABS: ABG Base Excess 1 mEq/L (-2 to 3); ABG HCO3 30 mEq/L (21-27); ABG Oxygen Saturation 92 % (95-98); ABG PCO2 74 mmHg (35-45); ABG PH 7.22 pH Units (7.32-7.45); ABG PO2 81 mmHg (85-104); ABG TCO2 33 mEq/L (20-26); Blood Gas VT 450 cc
[2020-09-12] MEDS: Cisatracurium 200 MG in 0.9 % Sodium Chloride 180 ML IVC SCH ×6 (01:07→22:03)
[2020-09-12] MEDS: Ipratropium 1 PUFF INHALER IH SCH ×6 (03:48→23:54)
[2020-09-12 04:03] LABS: ABG Base Excess 3 mEq/L (-2 to 3); ABG HCO3 32 mEq/L (21-27); ABG Oxygen Saturation 90 % (95-98); ABG PCO2 80 mmHg (35-45); ABG PH 7.22 pH Units (7.32-7.45); ABG PO2 74 mmHg (85-104); ABG TCO2 35 mEq/L (20-26); Blood Gas VT 450 cc
[2020-09-12] MEDS: Artificial Tears SOLN 15 ML BOTTLE BOTH EYES SCH ×6 (04:23→23:14)
[2020-09-12] MEDS: *HR* Enoxaparin 40 MG/0.4 ML SYRINGE SQ SCH (05:09)
[2020-09-12] MEDS: FentaNYL (PF) 1,000 MCG/100 ML IV.SOLN IVC SCH ×2 (06:46→11:02)
[2020-09-12] MEDS: Midazolam HCl 50 MG/100 ML IV.SOLN IVC SCH ×4 (06:47→23:14)
[2020-09-12] MEDS: Chlorhexidine Rinse 15 ML MOUTHWASH MM SCH ×2 (07:19→19:50)
[2020-09-12] MEDS: Pantoprazole 40 MG VIAL IVP SCH (07:19)
[2020-09-12] MEDS: Sucralfate 1 GM TABLET PO SCH ×2 (07:20→19:48)
[2020-09-12] MEDS: Doxycycline 100 MG in 0.9 % Sodium Chloride Mini Bag 100 ML IVPB SCH ×2 (07:20→19:51)
[2020-09-12] MEDS: Piperacillin/Tazobactam 3.375 GM in 0.9 % Sodium Chloride Mini Bag 100 ML IVPB SCH ×3 (07:20→23:15)
[2020-09-12] MEDS: Fluticasone Propionate Nasal 50 MCG/SPRAY BOTTLE NS SCH (07:21)
[2020-09-12] MEDS: Furosemide 20 MG/2 ML VIAL IVP SCH ×2 (07:21→19:50)
[2020-09-12] MEDS: Doxycycline 100 MG CAPSULE PO SCH (07:33)
[2020-09-12] MEDS: Aspirin Enteric Coated 81 MG Tablet PO SCH (07:34)
[2020-09-12] MEDS: Gabapentin 100 MG CAPSULE PO SCH (07:35)
[2020-09-12] MEDS: FentaNYL (PF) 2,500 MCG/50 ML IV.SOLN IVC SCH (14:22)
[2020-09-12] MEDS: Dexmedetomidine HCl 400 MCG/100 ML MLS IVC SCH ×3 (14:29→22:03)
[2020-09-12] MEDS: *HR* Metoprolol 5 MG/5 ML VIAL IVP PRN (15:03)
[2020-09-12] MEDS ORDERED: Acetaminophen IV 1,000 MG/100 ML INFUS..BTL IVPB ONE (20:23)
[2020-09-13] MEDS: Dexmedetomidine HCl 400 MCG/100 ML MLS IVC SCH ×6 (02:01→21:50)
[2020-09-13] MEDS: FentaNYL (PF) 2,500 MCG/50 ML IV.SOLN IVC SCH ×2 (02:02→13:30)
[2020-09-13] MEDS: Cisatracurium 200 MG in 0.9 % Sodium Chloride 180 ML IVC SCH ×6 (02:02→20:18)
[2020-09-13] MEDS: Artificial Tears SOLN 15 ML BOTTLE BOTH EYES SCH ×6 (03:59→23:21)
[2020-09-13] MEDS: Midazolam HCl 50 MG/100 ML IV.SOLN IVC SCH ×5 (03:59→22:40)
[2020-09-13] MEDS: Ipratropium 1 PUFF INHALER IH SCH ×5 (04:00→20:15)
[2020-09-13 04:13] LABS: VBG Ionized Calcium 1.16 mmol/L (1.15-1.35)
[2020-09-13 04:20] LABS: ABG Base Excess 3 mEq/L (-2 to 3); ABG HCO3 31 mEq/L (21-27); ABG Oxygen Saturation 98 % (95-98); ABG PCO2 62 mmHg (35-45); ABG PO2 116 mmHg (85-104); ABG TCO2 33 mEq/L (20-26); Blood Gas Modality ASSIST CONTROL; Blood Gas VT 450 cc
[2020-09-13 04:21] LABS: INR 1.3; Lymphocytes % 4.6 %; Prothrombin Time 15.2 Seconds (9.4-12.1)
[2020-09-13 04:22] LABS: Hematocrit 31.9 % (37.5-50.1); Hemoglobin 8.5 g/dL (12.9-16.9); Immature Granulocytes % 0.8 % (0-4); Lymphocytes # 0.4 K/mcL (0.6-4.6); Mean Corpuscular HGB Conc 26.6 g/dL (31.6-35.5); Mean Corpuscular Hemoglobin 21.4 pg (28.0-33.3); Mean Corpuscular Volume 80.4 fL (83.0-100.0); Mean Platelet Volume 10.7 fL (9.4-12.4); Monocytes # 0.8 K/mcL (0.0-1.3); Monocytes % 8.7 %; Platelet Count 314 K/mcL (140-400); Red Blood Count 3.97 M/mcL (4.19-5.50); Red Cell Distribution Width 18.6 % (11.5-14.5); Segmented Neutrophils % 85.9 %; White Blood Count 9.3 K/mcL (4.3-11.1)
[2020-09-13 04:24] LABS: Activated Partial Thrombo Time 23.5 Seconds (26.0-36.0)
[2020-09-13 04:37] LABS: Albumin 2.7 g/dL (3.5-5.7); Albumin/Globulin Ratio 0.7 (1.1-2.2); Bilirubin,Total 0.3 mg/dL (0.3-1.0); Calcium 8.6 mg/dL (8.6-10.3); Globulin 4.1 g/dL (2.4-3.5); Magnesium 3.1 mg/dL (1.6-2.6); Phosphorous 4.1 mg/dL (2.7-4.5); Total Protein 6.8 g/dL (6.4-8.9)
[2020-09-13] MEDS: *HR* Enoxaparin 40 MG/0.4 ML SYRINGE SQ SCH (04:58)
[2020-09-13 05:29] LABS: Platelet Estimate Normal (Normal); Poikilocytosis 1+ (Not Present)
[2020-09-13] MEDS: Aspirin Enteric Coated 81 MG Tablet PO SCH (07:43)
[2020-09-13] MEDS: Sucralfate 1 GM TABLET PO SCH ×2 (07:43→19:39)
[2020-09-13] MEDS: Piperacillin/Tazobactam 3.375 GM in 0.9 % Sodium Chloride Mini Bag 100 ML IVPB SCH ×3 (08:36→23:21)
[2020-09-13] MEDS: Doxycycline 100 MG in 0.9 % Sodium Chloride Mini Bag 100 ML IVPB SCH ×2 (08:36→20:22)
[2020-09-13] MEDS: Chlorhexidine Rinse 15 ML MOUTHWASH MM SCH ×2 (08:36→19:41)
[2020-09-13] MEDS: Furosemide 20 MG/2 ML VIAL IVP SCH (08:37)
[2020-09-13] MEDS: Pantoprazole 40 MG VIAL IVP SCH (08:37)
[2020-09-13] MEDS: Vancomycin 2,000 MG/520 ML IV.SOLN IVPB SCH (13:36)
[2020-09-13] MEDS ORDERED: *HR* Heparin 5,000 UNIT/ML VIAL IVP ONE (14:09)
[2020-09-13] MEDS ORDERED: *HR* Heparin 5,000 UNIT/ML VIAL IVP PRN ×2 (14:09)
[2020-09-13 16:16] LABS: Hemoglobin 8.6 g/dL (12.9-16.9)
[2020-09-13 16:19] LABS: Heparin anti-factor XA UFH 0.07 IU/mL (0.30-0.70); INR 1.3; Prothrombin Time 15.1 Seconds (9.4-12.1)
[2020-09-13 16:29] LABS: Mean Corpuscular HGB Conc 27.4 g/dL (31.6-35.5); Mean Corpuscular Hemoglobin 22.1 pg (28.0-33.3); Mean Corpuscular Volume 80.5 fL (83.0-100.0); Mean Platelet Volume 10.2 fL (9.4-12.4); Platelet Count 261 K/mcL (140-400); Red Cell Distribution Width 18.9 % (11.5-14.5); White Blood Count 10.9 K/mcL (4.3-11.1)
[2020-09-13 16:30] LABS: Hematocrit 31.9 % (37.5-50.1)
[2020-09-13] MEDS: Heparin 25,000UNIT/250ML 1/2NS 25,000 UNIT/250 ML IV.SOLN IVC SCH (16:38)
[2020-09-13 20:23] LABS: Hematocrit 33.4 % (37.5-50.1); Hemoglobin 8.9 g/dL (12.9-16.9)
[2020-09-14] MEDS: Ipratropium 1 PUFF INHALER IH SCH ×6 (00:04→20:38)
[2020-09-14] MEDS: Cisatracurium 200 MG in 0.9 % Sodium Chloride 180 ML IVC SCH ×8 (00:09→23:44)
[2020-09-14] MEDS: Dexmedetomidine HCl 400 MCG/100 ML MLS IVC SCH ×8 (01:45→22:45)
[2020-09-14] MEDS: Midazolam HCl 50 MG/100 ML IV.SOLN IVC SCH ×6 (02:40→23:43)
[2020-09-14] MEDS: FentaNYL (PF) 2,500 MCG/50 ML IV.SOLN IVC SCH ×3 (03:28→22:46)
[2020-09-14] MEDS: Artificial Tears SOLN 15 ML BOTTLE BOTH EYES SCH ×6 (03:29→23:06)
[2020-09-14 03:48] LABS: Basophils % 0.1 %; Mean Platelet Volume 10.5 fL (9.4-12.4)
[2020-09-14 03:49] LABS: Hematocrit 32.6 % (37.5-50.1); Hemoglobin 8.9 g/dL (12.9-16.9); Immature Granulocytes % 0.5 % (0-4); Lymphocytes # 0.4 K/mcL (0.6-4.6); Lymphocytes % 4.8 %; Mean Corpuscular HGB Conc 27.3 g/dL (31.6-35.5); Mean Corpuscular Volume 80.5 fL (83.0-100.0); Monocytes # 0.8 K/mcL (0.0-1.3); Monocytes % 8.3 %; Neutrophils # 7.9 K/mcL (1.6-8.9); Platelet Count 253 K/mcL (140-400); Red Blood Count 4.05 M/mcL (4.19-5.50); Red Cell Distribution Width 18.8 % (11.5-14.5); Segmented Neutrophils % 86.3 %; White Blood Count 9.2 K/mcL (4.3-11.1)
[2020-09-14 03:51] LABS: VBG Ionized Calcium 1.17 mmol/L (1.15-1.35)
[2020-09-14 03:52] LABS: INR 1.3; Prothrombin Time 14.8 Seconds (9.4-12.1)
[2020-09-14 03:55] LABS: Activated Partial Thrombo Time 34.2 Seconds (26.0-36.0)
[2020-09-14 04:08] LABS: Albumin 2.5 g/dL (3.5-5.7); Albumin/Globulin Ratio 0.6 (1.1-2.2); Bilirubin,Total 0.3 mg/dL (0.3-1.0); Calcium 8.3 mg/dL (8.6-10.3); Magnesium 2.8 mg/dL (1.6-2.6); Phosphorous 3.6 mg/dL (2.7-4.5); Potassium 4.7 mEq/L (3.5-5.1); Total Protein 6.5 g/dL (6.4-8.9)
[2020-09-14 04:08] LABS: ABG Base Excess 1 mEq/L (-2 to 3); ABG HCO3 28 mEq/L (21-27); ABG Oxygen Saturation 93 % (95-98); ABG PCO2 58 mmHg (35-45); ABG PO2 76 mmHg (85-104); ABG TCO2 30 mEq/L (20-26); Blood Gas Modality ASSIST CONTROL; Blood Gas VT 450 cc
[2020-09-14 04:22] LABS: Anisocytosis 1+ (Not Present); Hypochromasia Present (Not Present)
[2020-09-14 04:23] LABS: Platelet Estimate Normal (Normal)
[2020-09-14] MEDS: Heparin 25,000UNIT/250ML 1/2NS 25,000 UNIT/250 ML IV.SOLN IVC SCH ×2 (04:59→16:12)
[2020-09-14] MEDS: Aspirin Enteric Coated 81 MG Tablet PO SCH (07:48)
[2020-09-14] MEDS: Sucralfate 1 GM TABLET PO SCH ×2 (07:48→19:25)
[2020-09-14] MEDS: Pantoprazole 40 MG VIAL IVP SCH (08:02)
[2020-09-14] MEDS: Doxycycline 100 MG in 0.9 % Sodium Chloride Mini Bag 100 ML IVPB SCH ×2 (08:02→19:28)
[2020-09-14] MEDS: Chlorhexidine Rinse 15 ML MOUTHWASH MM SCH ×2 (08:03→19:28)
[2020-09-14] MEDS: Piperacillin/Tazobactam 3.375 GM in 0.9 % Sodium Chloride Mini Bag 100 ML IVPB SCH ×3 (08:03→23:07)
[2020-09-14] MEDS: Vancomycin 2,000 MG/520 ML IV.SOLN IVPB SCH (11:31)
[2020-09-15] MEDS: Ipratropium 1 PUFF INHALER IH SCH ×7 (00:19→23:55)
[2020-09-15] MEDS: Dexmedetomidine HCl 400 MCG/100 ML MLS IVC SCH ×8 (01:36→21:40)
[2020-09-15] MEDS: Cisatracurium 200 MG in 0.9 % Sodium Chloride 180 ML IVC SCH ×10 (02:05→22:41)
[2020-09-15] MEDS: Midazolam HCl 50 MG/100 ML IV.SOLN IVC SCH ×3 (04:00→11:16)
[2020-09-15 04:04] LABS: ABG Base Excess 1 mEq/L (-2 to 3); ABG HCO3 29 mEq/L (21-27); ABG Oxygen Saturation 95 % (95-98); ABG PCO2 65 mmHg (35-45); ABG PH 7.26 pH Units (7.32-7.45); ABG PO2 89 mmHg (85-104); ABG TCO2 31 mEq/L (20-26); Blood Gas Modality ASSIST CONTROL; Blood Gas VT 450 cc
[2020-09-15] MEDS: Artificial Tears SOLN 15 ML BOTTLE BOTH EYES SCH ×6 (04:32→23:38)
[2020-09-15] MEDS: Heparin 25,000UNIT/250ML 1/2NS 25,000 UNIT/250 ML IV.SOLN IVC SCH ×2 (04:58→20:54)
[2020-09-15 05:09] LABS: VBG Ionized Calcium 1.17 mmol/L (1.15-1.35)
[2020-09-15 05:12] LABS: Eosinophils % 0.1 %; Hemoglobin 8.7 g/dL (12.9-16.9); Immature Granulocytes % 1.1 % (0-4); Lymphocytes % 4.5 %
[2020-09-15 05:15] LABS: Basophils % 0.2 %; Hematocrit 32.9 % (37.5-50.1); Lymphocytes # 0.5 K/mcL (0.6-4.6); Mean Corpuscular HGB Conc 26.4 g/dL (31.6-35.5); Mean Corpuscular Hemoglobin 21.5 pg (28.0-33.3); Mean Corpuscular Volume 81.2 fL (83.0-100.0); Mean Platelet Volume 10.7 fL (9.4-12.4); Monocytes # 0.8 K/mcL (0.0-1.3); Monocytes % 6.7 %; Neutrophils # 10.3 K/mcL (1.6-8.9); Platelet Count 218 K/mcL (140-400); Red Blood Count 4.05 M/mcL (4.19-5.50); Red Cell Distribution Width 19.3 % (11.5-14.5); Segmented Neutrophils % 87.4 %; White Blood Count 11.8 K/mcL (4.3-11.1)
[2020-09-15 05:29] LABS: Activated Partial Thrombo Time 35.6 Seconds (26.0-36.0); INR 1.2
[2020-09-15 05:32] LABS: Alanine Aminotransferase 25 Units/L (7-52); Albumin 2.6 g/dL (3.5-5.7); Albumin/Globulin Ratio 0.7 (1.1-2.2); Alkaline Phosphatase 59 Units/L (34-104); Aspartate Amino Transferase 30 Units/L (13-39); BUN/Creatinine Ratio 34 (6-26); Bilirubin,Total 0.3 mg/dL (0.3-1.0); Blood Urea Nitrogen 49 mg/dL (6-20); Calcium 8.4 mg/dL (8.6-10.3); Carbon Dioxide 25 mEq/L (23-29); Chloride 115 mEq/L (98-107); Globulin 3.7 g/dL (2.4-3.5); Glucose 116 mg/dL (70-105); Magnesium 2.8 mg/dL (1.6-2.6); Osmolality,Calculated 318 (280-300); Phosphorous 3.3 mg/dL (2.7-4.5); Potassium 4.9 mEq/L (3.5-5.1); Sodium 147 mEq/L (136-145); Total Protein 6.3 g/dL (6.4-8.9); eGFR For African Americans > 60 (> 60); eGFR For Non-African Americans 52 (> 60)
[2020-09-15 06:11] LABS: Hypochromasia Present (Not Present); Platelet Estimate Normal (Normal)
[2020-09-15] MEDS: Piperacillin/Tazobactam 3.375 GM in 0.9 % Sodium Chloride Mini Bag 100 ML IVPB SCH ×3 (07:42→23:38)
[2020-09-15] MEDS: Chlorhexidine Rinse 15 ML MOUTHWASH MM SCH ×2 (07:43→20:21)
[2020-09-15] MEDS: Pantoprazole 40 MG VIAL IVP SCH (07:43)
[2020-09-15] MEDS: Doxycycline 100 MG in 0.9 % Sodium Chloride Mini Bag 100 ML IVPB SCH (07:43)
[2020-09-15] MEDS: Aspirin Enteric Coated 81 MG Tablet PO SCH (07:44)
[2020-09-15] MEDS: Sucralfate 1 GM TABLET PO SCH ×2 (07:47→20:21)
[2020-09-15] MEDS: FentaNYL (PF) 2,500 MCG/50 ML IV.SOLN IVC SCH ×2 (09:07→19:02)
[2020-09-15] MEDS ORDERED: Furosemide 40 MG/4 ML VIAL IVP ONE (11:14)
[2020-09-15] MEDS: Acetaminophen 325 MG TABLET PO PRN ×2 (12:57→14:06)
[2020-09-15] MEDS: Vancomycin 2,000 MG/520 ML IV.SOLN IVPB SCH (13:04)
[2020-09-15] MEDS: Midazolam HCl 100 MG in 0.9 % Sodium Chloride 80 ML IVC SCH (23:38)
[2020-09-16] MEDS: Dexmedetomidine HCl 400 MCG/100 ML MLS IVC SCH ×9 (00:21→22:53)
[2020-09-16] MEDS: Cisatracurium 200 MG in 0.9 % Sodium Chloride 180 ML IVC SCH ×5 (00:30→10:46)
[2020-09-16] MEDS: Ipratropium 1 PUFF INHALER IH SCH ×5 (03:34→19:49)
[2020-09-16] MEDS: Artificial Tears SOLN 15 ML BOTTLE BOTH EYES SCH ×5 (03:34→20:03)
[2020-09-16 03:41] LABS: ABG Base Excess 1 mEq/L (-2 to 3); ABG HCO3 29 mEq/L (21-27); ABG Oxygen Saturation 92 % (95-98); ABG PCO2 59 mmHg (35-45); ABG PH 7.29 pH Units (7.32-7.45); ABG PO2 71 mmHg (85-104); ABG TCO2 30 mEq/L (20-26); Blood Gas Modality AF; Blood Gas VT 480 cc
[2020-09-16 04:05] LABS: VBG Ionized Calcium 0.97 mmol/L (1.15-1.35)
[2020-09-16 04:07] LABS: Basophils % 0.1 %; Hemoglobin 8.3 g/dL (12.9-16.9); Mean Platelet Volume 10.4 fL (9.4-12.4); Monocytes % 3.1 %; Nucleated Red Blood Cells 0.2 /100 WBC (0); Red Cell Distribution Width 19.5 % (11.5-14.5)
[2020-09-16 04:08] LABS: Eosinophils % 0.2 %; Hematocrit 30.4 % (37.5-50.1); Immature Granulocytes % 1.3 % (0-4); Lymphocytes # 0.5 K/mcL (0.6-4.6); Mean Corpuscular HGB Conc 27.3 g/dL (31.6-35.5); Mean Corpuscular Hemoglobin 22.3 pg (28.0-33.3); Mean Corpuscular Volume 81.5 fL (83.0-100.0); Monocytes # 0.5 K/mcL (0.0-1.3); Platelet Count 176 K/mcL (140-400); Red Blood Count 3.73 M/mcL (4.19-5.50); Segmented Neutrophils % 92.3 %; White Blood Count 16.2 K/mcL (4.3-11.1)
[2020-09-16 04:11] LABS: Heparin anti-factor XA UFH 0.32 IU/mL (0.30-0.70); INR 1.4; Prothrombin Time 16.5 Seconds (9.4-12.1)
[2020-09-16 04:13] LABS: Activated Partial Thrombo Time 44.1 Seconds (26.0-36.0)
[2020-09-16 04:25] LABS: Albumin 2.4 g/dL (3.5-5.7); Albumin/Globulin Ratio 0.7 (1.1-2.2); Bilirubin,Direct 0.2 mg/dL (0.0-0.2); Bilirubin,Indirect 0.2 mg/dL (0.0-1.0); Bilirubin,Total 0.4 mg/dL (0.3-1.0); Globulin 3.4 g/dL (2.4-3.5); Total Protein 5.8 g/dL (6.4-8.9)
[2020-09-16 04:26] LABS: Alanine Aminotransferase 28 Units/L (7-52); Albumin 2.3 g/dL (3.5-5.7); Albumin/Globulin Ratio 0.7 (1.1-2.2); Alkaline Phosphatase 49 Units/L (34-104); Aspartate Amino Transferase 29 Units/L (13-39); BUN/Creatinine Ratio 31 (6-26); Bilirubin,Total 0.4 mg/dL (0.3-1.0); Blood Urea Nitrogen 43 mg/dL (6-20); Calcium 7.6 mg/dL (8.6-10.3); Carbon Dioxide 26 mEq/L (23-29); Chloride 116 mEq/L (98-107); Globulin 3.1 g/dL (2.4-3.5); Glucose 104 mg/dL (70-105); Magnesium 2.1 mg/dL (1.6-2.6); Osmolality,Calculated 313 (280-300); Phosphorous 2.8 mg/dL (2.7-4.5); Potassium 4.1 mEq/L (3.5-5.1); Sodium 146 mEq/L (136-145); Total Protein 5.4 g/dL (6.4-8.9); eGFR For African Americans > 60 (> 60); eGFR For Non-African Americans 55 (> 60)
[2020-09-16 04:28] LABS: Anisocytosis 1+ (Not Present); Hypochromasia Present (Not Present)
[2020-09-16 04:29] LABS: Platelet Estimate Normal (Normal)
[2020-09-16] MEDS: FentaNYL (PF) 2,500 MCG/50 ML IV.SOLN IVC SCH ×2 (06:20→19:26)
[2020-09-16] MEDS: Midazolam HCl 100 MG in 0.9 % Sodium Chloride 80 ML IVC SCH ×2 (06:20→15:43)
[2020-09-16] MEDS: Pantoprazole 40 MG VIAL IVP SCH (07:23)
[2020-09-16] MEDS: Chlorhexidine Rinse 15 ML MOUTHWASH MM SCH ×2 (07:24→20:03)
[2020-09-16] MEDS: Sucralfate 1 GM TABLET PO SCH ×2 (07:32→20:03)
[2020-09-16] MEDS: Aspirin Enteric Coated 81 MG Tablet PO SCH (07:32)
[2020-09-16] MEDS: Piperacillin/Tazobactam 3.375 GM in 0.9 % Sodium Chloride Mini Bag 100 ML IVPB SCH ×2 (07:47→15:46)
[2020-09-16] MEDS: Heparin 25,000UNIT/250ML 1/2NS 25,000 UNIT/250 ML IV.SOLN IVC SCH ×2 (08:52→21:30)
[2020-09-16] MEDS ORDERED: Furosemide 40 MG/4 ML VIAL IVP ONE (11:28)
[2020-09-16] MEDS: Cisatracurium 400 MG in 0.9 % Sodium Chloride 360 ML IVC SCH ×3 (13:32→19:54)
[2020-09-16] MEDS: Acetaminophen 325 MG TABLET PO PRN (22:16)
[2020-09-17] MEDS: Ipratropium 1 PUFF INHALER IH SCH ×6 (00:05→20:24)
[2020-09-17] MEDS: Artificial Tears SOLN 15 ML BOTTLE BOTH EYES SCH ×6 (00:10→20:23)
[2020-09-17] MEDS: Piperacillin/Tazobactam 3.375 GM in 0.9 % Sodium Chloride Mini Bag 100 ML IVPB SCH ×3 (00:13→16:52)
[2020-09-17] MEDS: Dexmedetomidine HCl 400 MCG/100 ML MLS IVC SCH ×9 (01:44→23:37)
[2020-09-17] MEDS: Midazolam HCl 100 MG in 0.9 % Sodium Chloride 80 ML IVC SCH ×2 (02:21→13:29)
[2020-09-17] MEDS: Cisatracurium 400 MG in 0.9 % Sodium Chloride 360 ML IVC SCH ×3 (02:33→18:57)
[2020-09-17] MEDS: Acetaminophen 325 MG TABLET PO PRN ×2 (02:38→13:15)
[2020-09-17 03:47] LABS: ABG Base Excess 1 mEq/L (-2 to 3); ABG HCO3 28 mEq/L (21-27); ABG Oxygen Saturation 91 % (95-98); ABG PCO2 57 mmHg (35-45); ABG PO2 70 mmHg (85-104); ABG TCO2 30 mEq/L (20-26); Blood Gas Modality ASSIST CONTROL; Blood Gas VT 480 cc
[2020-09-17 05:17] LABS: Basophils % 0.1 %; Mean Platelet Volume 10.8 fL (9.4-12.4)
[2020-09-17 05:19] LABS: Eosinophils # 0.1 K/mcL (0.0-0.6); Eosinophils % 0.6 %; Hematocrit 26.4 % (37.5-50.1); Hemoglobin 7.2 g/dL (12.9-16.9); Immature Granulocytes % 2.2 % (0-4); Lymphocytes # 0.4 K/mcL (0.6-4.6); Lymphocytes % 2.2 %; Mean Corpuscular HGB Conc 27.3 g/dL (31.6-35.5); Mean Corpuscular Hemoglobin 22.4 pg (28.0-33.3); Monocytes # 0.4 K/mcL (0.0-1.3); Monocytes % 2.1 %; Neutrophils # 15.5 K/mcL (1.6-8.9); Nucleated Red Blood Cells 0.2 /100 WBC (0); Platelet Count 141 K/mcL (140-400); Red Blood Count 3.22 M/mcL (4.19-5.50); Red Cell Distribution Width 20.6 % (11.5-14.5); Segmented Neutrophils % 92.8 %; White Blood Count 16.7 K/mcL (4.3-11.1)
[2020-09-17 05:23] LABS: VBG Ionized Calcium 1.09 mmol/L (1.15-1.35)
[2020-09-17 05:36] LABS: Albumin/Globulin Ratio 0.7 (1.1-2.2); Bilirubin,Direct 0.2 mg/dL (0.0-0.2); Bilirubin,Indirect 0.2 mg/dL (0.0-1.0); Bilirubin,Total 0.4 mg/dL (0.3-1.0); Calcium 7.2 mg/dL (8.6-10.3); Globulin 2.8 g/dL (2.4-3.5); Magnesium 2.1 mg/dL (1.6-2.6); Phosphorous 3.1 mg/dL (2.7-4.5); Potassium 3.9 mEq/L (3.5-5.1); Total Protein 4.8 g/dL (6.4-8.9)
[2020-09-17 05:38] LABS: Anisocytosis 2+ (Not Present); Hypochromasia Present (Not Present); Large Platelets Present (Not Present); Microcytosis Present (Not Present); Platelet Estimate Normal (Normal); Reactive Lymphocytes Present (Not Present)
[2020-09-17] MEDS: FentaNYL (PF) 2,500 MCG/50 ML IV.SOLN IVC SCH ×2 (08:33→18:57)
[2020-09-17] MEDS: Dexamethasone Sodium Phos/PF 10 MG/ML VIAL IVP SCH (10:06)
[2020-09-17] MEDS: Chlorhexidine Rinse 15 ML MOUTHWASH MM SCH ×2 (10:07→20:23)
[2020-09-17] MEDS: Sucralfate 1 GM TABLET PO SCH ×2 (10:07→20:23)
[2020-09-17] MEDS: Aspirin 81 MG TAB.CHEW PO SCH (10:07)
[2020-09-17] MEDS: Pantoprazole 40 MG VIAL IVP SCH (10:07)
[2020-09-17] MEDS: Heparin 25,000UNIT/250ML 1/2NS 25,000 UNIT/250 ML IV.SOLN IVC SCH ×2 (10:43→10:46)
[2020-09-17] MEDS ORDERED: Furosemide 40 MG/4 ML VIAL IVP ONE (11:07)
[2020-09-17] MEDS ORDERED: 0.9 % Sodium Chloride 1,000 ML ONE ×2 (12:20→16:45)
[2020-09-17] MEDS: Nystatin Ointment 15 GM TUBE TP SCH ×3 (12:35→20:24)
[2020-09-17] MEDS: Norepinephrine 4 MG/254 ML IV.SOLN IVC SCH (13:48)
[2020-09-17 17:06] LABS: Hematocrit 31.8 % (37.5-50.1); Hemoglobin 8.5 g/dL (12.9-16.9)
[2020-09-18] MEDS: Ipratropium 1 PUFF INHALER IH SCH ×6 (00:05→19:53)
[2020-09-18] MEDS: Acetaminophen 325 MG TABLET PO PRN (00:19)
[2020-09-18] MEDS: Artificial Tears SOLN 15 ML BOTTLE BOTH EYES SCH ×7 (00:19→23:50)
[2020-09-18] MEDS: Piperacillin/Tazobactam 3.375 GM in 0.9 % Sodium Chloride Mini Bag 100 ML IVPB SCH ×4 (00:20→23:49)
[2020-09-18] MEDS: Dexmedetomidine HCl 400 MCG/100 ML MLS IVC SCH ×7 (02:00→20:09)
[2020-09-18 03:59] LABS: ABG Base Excess 1 mEq/L (-2 to 3); ABG HCO3 28 mEq/L (21-27); ABG Oxygen Saturation 93 % (95-98); ABG PCO2 61 mmHg (35-45); ABG PH 7.27 pH Units (7.32-7.45); ABG PO2 76 mmHg (85-104); ABG TCO2 30 mEq/L (20-26); Blood Gas VT 480 cc
[2020-09-18] MEDS: Norepinephrine 4 MG/254 ML IV.SOLN IVC SCH ×2 (04:00→17:37)
[2020-09-18 04:41] LABS: Hematocrit 29.8 % (37.5-50.1); Hemoglobin 8.2 g/dL (12.9-16.9); Lymphocytes % 1.7 %; Mean Corpuscular HGB Conc 27.5 g/dL (31.6-35.5); Nucleated Red Blood Cells 0.1 /100 WBC (0)
[2020-09-18 04:42] LABS: Immature Granulocytes % 4.2 % (0-4); Lymphocytes # 0.4 K/mcL (0.6-4.6); Mean Corpuscular Hemoglobin 22.3 pg (28.0-33.3); Mean Corpuscular Volume 81.2 fL (83.0-100.0); Mean Platelet Volume 11.1 fL (9.4-12.4); Monocytes # 0.6 K/mcL (0.0-1.3); Monocytes % 2.8 %; Platelet Count 152 K/mcL (140-400); Red Blood Count 3.67 M/mcL (4.19-5.50); Red Cell Distribution Width 21.1 % (11.5-14.5); Segmented Neutrophils % 91.3 %; White Blood Count 20.8 K/mcL (4.3-11.1)
[2020-09-18 04:43] LABS: VBG Ionized Calcium 1.16 mmol/L (1.15-1.35)
[2020-09-18 05:05] LABS: Albumin 2.3 g/dL (3.5-5.7); Albumin/Globulin Ratio 0.7 (1.1-2.2); Bilirubin,Direct 0.4 mg/dL (0.0-0.2); Bilirubin,Indirect 0.1 mg/dL (0.0-1.0); Bilirubin,Total 0.5 mg/dL (0.3-1.0); Calcium 8.1 mg/dL (8.6-10.3); Globulin 3.5 g/dL (2.4-3.5); Magnesium 2.4 mg/dL (1.6-2.6); Phosphorous 4.5 mg/dL (2.7-4.5); Potassium 4.7 mEq/L (3.5-5.1); Total Protein 5.8 g/dL (6.4-8.9)
[2020-09-18 05:37] LABS: Hypochromasia Present (Not Present); Platelet Estimate Normal (Normal); Polychromasia 1+ (Not Present)
[2020-09-18] MEDS: Heparin 25,000UNIT/250ML 1/2NS 25,000 UNIT/250 ML IV.SOLN IVC SCH ×3 (07:41→12:35)
[2020-09-18] MEDS: Cisatracurium 400 MG in 0.9 % Sodium Chloride 360 ML IVC SCH (07:44)
[2020-09-18] MEDS: FentaNYL (PF) 2,500 MCG/50 ML IV.SOLN IVC SCH ×2 (07:49→20:29)
[2020-09-18] MEDS: Aspirin 81 MG TAB.CHEW PO SCH (07:52)
[2020-09-18] MEDS: Chlorhexidine Rinse 15 ML MOUTHWASH MM SCH ×2 (07:52→19:41)
[2020-09-18] MEDS: Pantoprazole 40 MG VIAL IVP SCH (07:52)
[2020-09-18] MEDS: Sucralfate 1 GM TABLET PO SCH ×2 (07:52→19:41)
[2020-09-18] MEDS ORDERED: *HR* Heparin 5,000 UNIT/ML VIAL CRRT PRN (07:55)
[2020-09-18] MEDS ORDERED: 0.9 % Sodium Chloride 1,000 ML PRIME SCH (08:00)
[2020-09-18] MEDS: Dexamethasone Sodium Phos/PF 10 MG/ML VIAL IVP SCH (08:40)
[2020-09-18] MEDS: Midazolam HCl 100 MG in 0.9 % Sodium Chloride 80 ML IVC SCH ×3 (08:55→18:49)
[2020-09-18] MEDS ORDERED: 0.9 % Sodium Chloride 500 ML ONE (09:08)
[2020-09-18] MEDS ORDERED: *HR* Heparin 5,000 UNIT/ML VIAL ONE (09:09)
[2020-09-18] MEDS: Nystatin Ointment 15 GM TUBE TP SCH ×4 (09:26→19:41)
[2020-09-18] MEDS ORDERED: Vancomycin 2,000 MG/520 ML IV.SOLN IVPB ONE (09:30)
[2020-09-18] MEDS ORDERED: Vancomycin 1 EACH in 0.9 % Sodium Chloride 250 ML IVPB PRN (10:00)
[2020-09-18 11:04] LABS: ABG Base Excess 4 mEq/L (-2 to 3); ABG HCO3 32 mEq/L (21-27); ABG Oxygen Saturation 97 % (95-98); ABG PCO2 67 mmHg (35-45); ABG PH 7.28 pH Units (7.32-7.45); ABG PO2 100 mmHg (85-104); ABG TCO2 34 mEq/L (20-26)
[2020-09-18 11:05] LABS: Blood Gas VT 450 cc
[2020-09-18] MEDS: PrismaSATE BGK 4/2.5 5,000 ML CRRT SCH ×6 (11:24→22:05)
[2020-09-18] MEDS: Docusate Oral Soln 100 MG/10 ML UDC GTUBE SCH (19:41)
[2020-09-19] MEDS: Ipratropium 1 PUFF INHALER IH SCH ×7 (00:08→23:44)
[2020-09-19] MEDS: Heparin 25,000UNIT/250ML 1/2NS 25,000 UNIT/250 ML IV.SOLN IVC SCH ×2 (01:29→13:28)
[2020-09-19] MEDS: PrismaSATE BGK 4/2.5 5,000 ML CRRT SCH ×12 (02:04→21:42)
[2020-09-19 04:27] LABS: Eosinophils % 0.1 %; Hemoglobin 8.6 g/dL (12.9-16.9)
[2020-09-19 04:29] LABS: Basophils % 0.1 %; Hematocrit 31.3 % (37.5-50.1); Immature Granulocytes % 3.4 % (0-4); Immature Platelets 6.1 % (1.1-6.1); Lymphocytes # 0.4 K/mcL (0.6-4.6); Lymphocytes % 2.4 %; Mean Corpuscular HGB Conc 27.5 g/dL (31.6-35.5); Mean Corpuscular Hemoglobin 22.2 pg (28.0-33.3); Mean Corpuscular Volume 80.9 fL (83.0-100.0); Mean Platelet Volume 10.7 fL (9.4-12.4); Monocytes # 0.5 K/mcL (0.0-1.3); Nucleated Red Blood Cells 0.2 /100 WBC (0); Platelet Count 122 K/mcL (140-400); Red Blood Count 3.87 M/mcL (4.19-5.50); Red Cell Distribution Width 20.9 % (11.5-14.5)
[2020-09-19] MEDS: Artificial Tears SOLN 15 ML BOTTLE BOTH EYES SCH ×6 (04:29→23:59)
[2020-09-19 04:33] LABS: Neutrophils # 13.7 K/mcL (1.6-8.9)
[2020-09-19 04:35] LABS: VBG Ionized Calcium 1.15 mmol/L (1.15-1.35)
[2020-09-19 04:46] LABS: Albumin 2.4 g/dL (3.5-5.7); Albumin/Globulin Ratio 0.7 (1.1-2.2); Bilirubin,Direct 0.2 mg/dL (0.0-0.2); Bilirubin,Indirect 0.3 mg/dL (0.0-1.0); Bilirubin,Total 0.5 mg/dL (0.3-1.0); Calcium 7.9 mg/dL (8.6-10.3); Globulin 3.6 g/dL (2.4-3.5); Magnesium 2.3 mg/dL (1.6-2.6); Phosphorous 3.3 mg/dL (2.7-4.5); Potassium 4.3 mEq/L (3.5-5.1)
[2020-09-19 04:59] LABS: Anisocytosis 1+ (Not Present); Basophilic Stippling 1+ (Not Present); Hypochromasia Present (Not Present); Platelet Estimate Slight Decrease (Normal); Polychromasia 1+ (Not Present)
[2020-09-19 05:06] LABS: ABG Base Excess -2 mEq/L (-2 to 3); ABG HCO3 26 mEq/L (21-27); ABG Oxygen Saturation 88 % (95-98); ABG PCO2 62 mmHg (35-45); ABG PH 7.24 pH Units (7.32-7.45); ABG PO2 66 mmHg (85-104); ABG TCO2 28 mEq/L (20-26); Blood Gas Modality ASSIST CONTROL; Blood Gas VT 480 cc
[2020-09-19] MEDS: Midazolam HCl 100 MG in 0.9 % Sodium Chloride 80 ML IVC SCH ×2 (05:39→16:02)
[2020-09-19] MEDS: Dexmedetomidine HCl 400 MCG/100 ML MLS IVC SCH (07:15)
[2020-09-19] MEDS: Pantoprazole 40 MG VIAL IVP SCH (07:40)
[2020-09-19] MEDS: Sucralfate 1 GM TABLET PO SCH ×2 (07:40→19:39)
[2020-09-19] MEDS: Docusate Oral Soln 100 MG/10 ML UDC GTUBE SCH ×2 (07:40→19:38)
[2020-09-19] MEDS: Aspirin 81 MG TAB.CHEW PO SCH (07:40)
[2020-09-19] MEDS: Piperacillin/Tazobactam 3.375 GM in 0.9 % Sodium Chloride Mini Bag 100 ML IVPB SCH ×2 (07:41→16:04)
[2020-09-19] MEDS: Chlorhexidine Rinse 15 ML MOUTHWASH MM SCH ×2 (07:41→19:38)
[2020-09-19] MEDS: Dexamethasone Sodium Phos/PF 10 MG/ML VIAL IVP SCH (07:41)
[2020-09-19] MEDS: Nystatin Ointment 15 GM TUBE TP SCH ×4 (07:42→19:39)
[2020-09-19] MEDS ORDERED: Dextrose Gel 15 GM/37.5 ML TUBE PO PRN ×2 (09:58)
[2020-09-19] MEDS ORDERED: *HR* Dextrose 50 % in Water (Vial) 50 ML VIAL IVP PRN (09:58)
[2020-09-19] MEDS ORDERED: D5% in Water 1,000 ML IVC PRN (09:58)
[2020-09-19] MEDS: FentaNYL (PF) 2,500 MCG/50 ML IV.SOLN IVC SCH ×2 (10:00→18:48)
[2020-09-19] MEDS: Vancomycin 1,250 MG/262.5 ML IV.SOLN IVPB SCH ×2 (10:33→21:38)
[2020-09-19] MEDS: Insulin LISPRO 300 UNITS/3 ML VIAL SQ SCH ×2 (12:28→18:10)
[2020-09-20] MEDS: Piperacillin/Tazobactam 3.375 GM in 0.9 % Sodium Chloride Mini Bag 100 ML IVPB SCH ×4 (00:03→23:57)
[2020-09-20] MEDS: Insulin LISPRO 300 UNITS/3 ML VIAL SQ SCH ×5 (00:23→23:01)
[2020-09-20] MEDS: Dexmedetomidine HCl 400 MCG/100 ML MLS IVC SCH ×5 (00:25→20:09)
[2020-09-20] MEDS: PrismaSATE BGK 4/2.5 5,000 ML CRRT SCH ×10 (01:56→20:54)
[2020-09-20] MEDS: Midazolam HCl 100 MG in 0.9 % Sodium Chloride 80 ML IVC SCH ×3 (02:00→21:00)
[2020-09-20] MEDS: Heparin 25,000UNIT/250ML 1/2NS 25,000 UNIT/250 ML IV.SOLN IVC SCH ×2 (02:08→14:09)
[2020-09-20] MEDS: Ipratropium 1 PUFF INHALER IH SCH ×6 (04:05→23:33)
[2020-09-20] MEDS: Artificial Tears SOLN 15 ML BOTTLE BOTH EYES SCH ×6 (04:08→23:01)
[2020-09-20 04:39] LABS: ABG Base Excess -1 mEq/L (-2 to 3); ABG HCO3 28 mEq/L (21-27); ABG Oxygen Saturation 83 % (95-98); ABG PCO2 73 mmHg (35-45); ABG PO2 60 mmHg (85-104); ABG TCO2 31 mEq/L (20-26); Blood Gas Modality ASSIST CONTROL; Blood Gas VT 480 cc
[2020-09-20 04:45] LABS: Immature Granulocytes % 4.6 % (0-4); Red Cell Distribution Width 21.2 % (11.5-14.5)
[2020-09-20 04:46] LABS: Basophils # 0.1 K/mcL (0.0-0.2); Basophils % 0.3 %; Eosinophils % 0.2 %; Hematocrit 33.1 % (37.5-50.1); Hemoglobin 9.1 g/dL (12.9-16.9); Lymphocytes # 0.5 K/mcL (0.6-4.6); Lymphocytes % 2.2 %; Mean Corpuscular HGB Conc 27.5 g/dL (31.6-35.5); Mean Corpuscular Hemoglobin 22.4 pg (28.0-33.3); Mean Corpuscular Volume 81.5 fL (83.0-100.0); Mean Platelet Volume 10.7 fL (9.4-12.4); Monocytes # 0.7 K/mcL (0.0-1.3); Monocytes % 3.2 %; Nucleated Red Blood Cells 0.5 /100 WBC (0); Platelet Count 168 K/mcL (140-400); Red Blood Count 4.06 M/mcL (4.19-5.50); Segmented Neutrophils % 89.5 %; White Blood Count 21.6 K/mcL (4.3-11.1)
[2020-09-20 04:54] LABS: Alanine Aminotransferase 37 Units/L (7-52); Albumin 2.6 g/dL (3.5-5.7); Albumin/Globulin Ratio 0.7 (1.1-2.2); Alkaline Phosphatase 69 Units/L (34-104); Aspartate Amino Transferase 36 Units/L (13-39); BUN/Creatinine Ratio 30 (6-26); Bilirubin,Direct 0.2 mg/dL (0.0-0.2); Bilirubin,Indirect 0.3 mg/dL (0.0-1.0); Bilirubin,Total 0.5 mg/dL (0.3-1.0); Blood Urea Nitrogen 40 mg/dL (6-20); Carbon Dioxide 27 mEq/L (23-29); Chloride 103 mEq/L (98-107); Globulin 3.8 g/dL (2.4-3.5); Glucose 167 mg/dL (70-105); Magnesium 2.2 mg/dL (1.6-2.6); Osmolality,Calculated 296 (280-300); Phosphorous 2.3 mg/dL (2.7-4.5); Potassium 4.3 mEq/L (3.5-5.1); Sodium 136 mEq/L (136-145); Total Protein 6.4 g/dL (6.4-8.9); eGFR For African Americans > 60 (> 60); eGFR For Non-African Americans 57 (> 60)
[2020-09-20 05:01] LABS: VBG Ionized Calcium 1.16 mmol/L (1.15-1.35)
[2020-09-20 05:04] LABS: Neutrophils # 19.3 K/mcL (1.6-8.9)
[2020-09-20 05:34] LABS: Anisocytosis 1+ (Not Present); Hypochromasia Present (Not Present); Platelet Estimate Normal (Normal); Polychromasia 1+ (Not Present)
[2020-09-20] MEDS: FentaNYL (PF) 2,500 MCG/50 ML IV.SOLN IVC SCH ×2 (07:06→15:01)
[2020-09-20] MEDS: Docusate Oral Soln 100 MG/10 ML UDC GTUBE SCH ×2 (08:01→19:55)
[2020-09-20] MEDS: Chlorhexidine Rinse 15 ML MOUTHWASH MM SCH ×2 (08:01→19:55)
[2020-09-20] MEDS: Dexamethasone Sodium Phos/PF 10 MG/ML VIAL IVP SCH (08:01)
[2020-09-20] MEDS: Sucralfate 1 GM TABLET PO SCH ×2 (08:01→19:55)
[2020-09-20] MEDS: Pantoprazole 40 MG VIAL IVP SCH (08:01)
[2020-09-20] MEDS: Aspirin 81 MG TAB.CHEW PO SCH (08:01)
[2020-09-20] MEDS: Nystatin Ointment 15 GM TUBE TP SCH ×4 (08:02→19:56)
[2020-09-20] MEDS: Cisatracurium 400 MG in 0.9 % Sodium Chloride 360 ML IVC SCH (08:02)
[2020-09-20] MEDS: Norepinephrine 4 MG/254 ML IV.SOLN IVC SCH ×2 (08:02→14:08)
[2020-09-21] MEDS: Dexmedetomidine HCl 400 MCG/100 ML MLS IVC SCH ×6 (00:56→18:00)
[2020-09-21] MEDS: PrismaSATE BGK 4/2.5 5,000 ML CRRT SCH ×10 (01:48→17:24)
[2020-09-21] MEDS: Artificial Tears SOLN 15 ML BOTTLE BOTH EYES SCH ×5 (03:09→20:03)
[2020-09-21] MEDS: Heparin 25,000UNIT/250ML 1/2NS 25,000 UNIT/250 ML IV.SOLN IVC SCH ×2 (03:09→17:00)
[2020-09-21] MEDS: FentaNYL (PF) 2,500 MCG/50 ML IV.SOLN IVC SCH ×2 (03:09→16:00)
[2020-09-21] MEDS: Ipratropium 1 PUFF INHALER IH SCH ×4 (04:00→16:37)
[2020-09-21 04:07] LABS: ABG Base Excess 0 mEq/L (-2 to 3); ABG HCO3 28 mEq/L (21-27); ABG Oxygen Saturation 78 % (95-98); ABG PCO2 68 mmHg (35-45); ABG PH 7.23 pH Units (7.32-7.45); ABG PO2 52 mmHg (85-104); ABG TCO2 30 mEq/L (20-26); Blood Gas Modality ASSIST CONTROL; Blood Gas VT 500 cc
[2020-09-21 04:19] LABS: Hematocrit 31.5 % (37.5-50.1); Hemoglobin 8.6 g/dL (12.9-16.9); Mean Corpuscular HGB Conc 27.3 g/dL (31.6-35.5); Red Cell Distribution Width 21.2 % (11.5-14.5)
[2020-09-21 04:21] LABS: Mean Corpuscular Hemoglobin 22.5 pg (28.0-33.3); Mean Corpuscular Volume 82.5 fL (83.0-100.0); Mean Platelet Volume 10.8 fL (9.4-12.4); Nucleated Red Blood Cells 0.4 /100 WBC (0); Platelet Count 141 K/mcL (140-400); Red Blood Count 3.82 M/mcL (4.19-5.50); White Blood Count 18.1 K/mcL (4.3-11.1)
[2020-09-21 04:38] LABS: Alanine Aminotransferase 39 Units/L (7-52); Albumin 2.6 g/dL (3.5-5.7); Albumin/Globulin Ratio 0.7 (1.1-2.2); Alkaline Phosphatase 66 Units/L (34-104); Aspartate Amino Transferase 34 Units/L (13-39); BUN/Creatinine Ratio 27 (6-26); Bilirubin,Direct 0.2 mg/dL (0.0-0.2); Bilirubin,Indirect 0.3 mg/dL (0.0-1.0); Bilirubin,Total 0.5 mg/dL (0.3-1.0); Blood Urea Nitrogen 38 mg/dL (6-20); Calcium 7.8 mg/dL (8.6-10.3); Carbon Dioxide 26 mEq/L (23-29); Chloride 102 mEq/L (98-107); Globulin 3.6 g/dL (2.4-3.5); Glucose 166 mg/dL (70-105); Magnesium 2.3 mg/dL (1.6-2.6); Osmolality,Calculated 293 (280-300); Phosphorous 2.3 mg/dL (2.7-4.5); Potassium 4.3 mEq/L (3.5-5.1); Sodium 135 mEq/L (136-145); Total Protein 6.2 g/dL (6.4-8.9); eGFR For African Americans > 60 (> 60); eGFR For Non-African Americans 54 (> 60)
[2020-09-21 04:51] LABS: Heparin anti-factor XA UFH 0.48 IU/mL (0.30-0.70)
[2020-09-21 04:56] LABS: Lymphocytes # 2.2 K/mcL (0.6-4.6); Monocytes # 0.4 K/mcL (0.0-1.3); Neutrophils # 15.6 K/mcL (1.6-8.9)
[2020-09-21 04:57] LABS: Anisocytosis 2+ (Not Present); Basophilic Stippling 1+ (Not Present); Macrocytosis Present (Not Present); Platelet Estimate Slight Decrease (Normal); Polychromasia 1+ (Not Present)
[2020-09-21] MEDS: Insulin LISPRO 300 UNITS/3 ML VIAL SQ SCH ×3 (04:59→18:43)
[2020-09-21 05:16] LABS: VBG Ionized Calcium 1.13 mmol/L (1.15-1.35)
[2020-09-21] MEDS: Midazolam HCl 100 MG in 0.9 % Sodium Chloride 80 ML IVC SCH ×2 (06:54→17:00)
[2020-09-21] MEDS: Chlorhexidine Rinse 15 ML MOUTHWASH MM SCH ×2 (08:11→20:03)
[2020-09-21] MEDS: Docusate Oral Soln 100 MG/10 ML UDC GTUBE SCH ×2 (08:11→20:03)
[2020-09-21] MEDS: Piperacillin/Tazobactam 3.375 GM in 0.9 % Sodium Chloride Mini Bag 100 ML IVPB SCH ×2 (08:11→16:25)
[2020-09-21] MEDS: Sucralfate 1 GM TABLET PO SCH ×2 (08:12→20:04)
[2020-09-21] MEDS: Aspirin 81 MG TAB.CHEW PO SCH (08:12)
[2020-09-21] MEDS: Pantoprazole 40 MG VIAL IVP SCH (08:12)
[2020-09-21] MEDS: Nystatin Ointment 15 GM TUBE TP SCH ×4 (08:32→20:04)
[2020-09-21] MEDS: Cisatracurium 400 MG in 0.9 % Sodium Chloride 360 ML IVC SCH (19:23)
[2020-09-21] MEDS ORDERED: *HR* LORazepam 1 MG TABLET SL PRN (20:12)
[2020-09-21] MEDS ORDERED: Ondansetron 4 MG/2 ML VIAL IVP PRN (20:12)
[2020-09-21] MEDS ORDERED: Ipratropium/Albuterol Neb 3 ML IH PRN (20:12)
[2020-09-21] MEDS ORDERED: Scopolamine Patch 1.5 MG PATCH.TD72 TD SCH (20:15)
[2020-09-21] MEDS ORDERED: *HR* LORazepam 2 MG/ML VIAL ONE (20:49)
[2020-09-21] MEDS ORDERED: *HR* LORazepam 2 MG/ML VIAL IVP PRN (20:51)
[2020-09-21 21:04] VITALS: BP 127/29
== END 2020-09-21 21:40 | disposition expired | DRG 870 ==
LOC: EMEROOARM 11:26 → 2NENU 11:26 → SUATTDRO 13:57 → 2NENU 15:07 → SUATTDRO 09-02 16:06 → 2NENU 09-02 16:38
PROVIDERS: ADMIT Pharmacist; ATTEND Internal Medicine